=== PATIENT | male | born 1965 | race Two or more races ===

== ENCOUNTER → 2020-08-13 13:04 | Outpatient (BNVA) | payer MEDICARE, MEDICAID, SELFPAY | PROVIDERS: PCP Internal Medicine; Referring Provider Internal Medicine; Visit Provider Dietitian, Registered | DX: Z76.89 Persons encountering health services in other specified circumstances (principal) ==

== ENCOUNTER → 2020-08-14 08:50 | Outpatient (BNVA) | payer MEDICARE, MEDICAID, SELFPAY | PROVIDERS: PCP Internal Medicine; Referring Provider Internal Medicine; Visit Provider Dietitian, Registered | DX: Z76.89 Persons encountering health services in other specified circumstances (principal) ==

== ENCOUNTER 2020-09-24 12:36 | Emergency (ER) | payer MEDICARE, MEDICAID, SELFPAY ==
[2020-09-24 13:03] VITALS: BP 136/76; PULSE 68; RESP 18; TEMP 36.8; O2SAT 97; BMI 34.4
--- NOTE | 2020-09-24 13:23 | XR_ITS ---
EXAMINATION: XR CALCANEUS, LEFT CLINICAL INFORMATION: Evaluate for foreign body. COMPARISON: None TECHNIQUE: Lateral and axial views of the left calcaneus were obtained. FINDINGS: A radiopaque, linear foreign body in subcutaneous tissues at the plantar aspect of the heel measures up to 0.5 cm in length. It is visible on both the AP and lateral projections. Otherwise, soft tissues are unremarkable. No acute fracture or malalignment at the hindfoot. Prominent enthesophytes at the posterior plantar surfaces of the calcaneus. Mild deformity of the talar neck could be sequela of remote trauma. Small osteophyte projects from the dorsal talar head. XR/XR calcaneus LT min 2V IMPRESSION: Small foreign body is present in subcutaneous tissues at the posterior, plantar aspect of the heel.
--- NOTE | 2020-09-24 13:48 | PC.NURSE ---
1st call to emc not in wr
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
[2020-09-24] MEDS: Lidocaine HCl 2 % MPF 5 ML VIAL INFILTRATI (14:22)
--- NOTE | 2020-09-24 14:30 | PC.NURSE ---
SHANNA BROWN AT BEDSIDE FOR FB REMOVAL FROM HEEL, PA AND PT AWARE XRAY RESULTS
--- NOTE | 2020-09-24 14:36 | XR_ITS ---
EXAMINATION: XR CALCANEUS, LEFT CLINICAL INFORMATION: Removal foreign body soft tissues of heel. COMPARISON: Left calcaneus 09/24/2020, 1:44 PM TECHNIQUE: Lateral and axial views of the left calcaneus were obtained. 2:36 PM FINDINGS: Small radiopaque foreign body remains in the soft tissues of the heel. Linear radiopacity measuring about 3 mm in length remains present. On this exam appears to be shifted in position though. The radiopacity is deeper from the skin line, measuring about 1 cm from the skin line, on the lateral view. The radiopacity is more lateral in position since the prior exam today. There is a plantar calcaneal spur. There is a small spur at the insertion of Achilles tendon at the posterior calcaneus. XR/XR calcaneus LT min 2V IMPRESSION: Small radiopaque foreign body in the soft tissue of the heel remains present
== END 2020-09-24 15:30 | disposition home or self-care (01) ==
PROVIDERS: Emergency Provider Emergency Medicine; PCP Internal Medicine
DX: M79.5 Residual foreign body in soft tissue (principal)
CPT/HCPCS: 73650; 90715; 99283

== ENCOUNTER → 2020-09-30 10:14 | Outpatient (BNVA) | payer MEDICARE, MEDICAID, SELFPAY | PROVIDERS: PCP Internal Medicine; Visit Provider Surgery | DX: M79.5 Residual foreign body in soft tissue (principal) | CPT/HCPCS: 99202 ==

== ENCOUNTER 2020-10-06 12:23 | Outpatient (REF) | payer MEDICARE, MEDICAID, SELFPAY ==
[2020-10-06 12:30] VITALS: BP 105/63; PULSE 85; RESP 16; TEMP 36.6; O2SAT 95
[2020-10-06 12:34] VITALS: BMI 34.3
[2020-10-06 13:04] VITALS: BP 117/72; PULSE 81; RESP 16
--- NOTE | 2020-10-06 20:38 | OP_ITS ---
SURGEON: Jose Reeves MD INDICATIONS: The patient is a 55-year-old male, who had stepped on a broken piece on glass, this was about 3 weeks ago. He stated that he had 1 piece of glass that seemed to have been stuck within his heel. He went to the ER, and x-ray showed a small 3 cm piece of radiopaque foreign body in the left heel. He had attempted to remove this in the ER, but without any success. He was therefore referred to me. I explained to him the technique of excision of removal of foreign body under local anesthesia and he was aware of the risks, benefits, and alternatives. PREOPERATIVE DIAGNOSIS: Foreign body, left heel. POSTOPERATIVE DIAGNOSIS: Foreign body, shard of glass, left heel. PROCEDURE PERFORMED: Removal of foreign body, which was a shard of glass, from the left heel under local anesthesia. ESTIMATED BLOOD LOSS: COMPLICATIONS: ANESTHESIA: ASSISTANTS: SPECIMENS: DESCRIPTION OF PROCEDURE: He was brought to the minor procedure room and placed in prone position. The area of the induration on the left heel was prepped and draped. Lidocaine 1% was used generously to infiltrate the entire area. I made a generous cruciate incision on the area of maximal induration using blade #15 and this was carried down to full-thickness skin. I then proceeded to explore the entire area. I could not palpate any foreign body nor clearly visualize at all. We continued to explore the area for several minutes until I was able to finally see a triangular piece of clear glass in the deep subcutaneous layer. It was retrieved and sent as specimen. I irrigated the area of incision. I left the incision open for secondary healing by secondary intention. I wrapped the area with gauze and a Patricio roll. He tolerated the procedure well. There were no complications noted. He was given wound care instructions. He will see me for a wound check in about 2 to 3 weeks. MD LEONILA Penny/VERENICEL / [phone]
== END 2020-10-06 12:24 | disposition home or self-care (01) ==
LOC: HO.MS 12:23
PROVIDERS: PCP Internal Medicine; Visit Provider Surgery
PROC: (CPT 28190; principal; 2020-10-06 13:00)
DX: M79.5 Residual foreign body in soft tissue (principal); Z18.81 Retained glass fragments
CPT/HCPCS: 28190; 88300

== ENCOUNTER 2020-10-22 11:08 | Outpatient (REF) | payer OTHER, SELFPAY | END 2020-10-22 11:09 | disposition home or self-care (01) | LOC: HO.LAB 11:08 | PROVIDERS: Visit Provider Internal Medicine | DX: Z20.822 Contact with and (suspected) exposure to COVID-19 (principal) | CPT/HCPCS: 36415; C9803; U0003 ==

== ENCOUNTER → 2020-10-26 11:34 | Outpatient (BNVA) | payer MEDICARE, MEDICAID, SELFPAY | PROVIDERS: PCP Internal Medicine; Visit Provider Surgery | DX: Z76.89 Persons encountering health services in other specified circumstances (principal) | CPT/HCPCS: 99212 ==

== ENCOUNTER 2020-11-14 02:31 | Emergency (ER) | payer OTHER, SELFPAY ==
[2020-11-14 02:32] VITALS: BP 120/74; PULSE 75; RESP 18; TEMP 36.8; O2SAT 96; BMI 27.6
[2020-11-14 03:56] VITALS: RESP 18
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
== END 2020-11-14 05:26 | disposition home or self-care (01) ==
PROVIDERS: Emergency Provider Student in an Organized Health Care Education/Training Program
DX: U07.1 COVID-19 (principal); T69.9XXA Effect of reduced temperature, unspecified, initial encounter; X31.XXXA Exposure to excessive natural cold, initial encounter; F17.210 Nicotine dependence, cigarettes, uncomplicated
CPT/HCPCS: 99283; 99284

== ENCOUNTER → 2020-11-18 08:17 | Outpatient (BNVA) | payer MEDICARE, MEDICAID, SELFPAY | PROVIDERS: PCP Internal Medicine; Visit Provider Physician Assistant ==

== ENCOUNTER 2020-12-01 11:15 | Emergency (ER) | payer OTHER, SELFPAY ==
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
[2020-12-01 11:42] VITALS: BP 109/67; PULSE 70; RESP 18; TEMP 36.4; O2SAT 98; BMI 33.7
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
== END 2020-12-01 13:21 | disposition home or self-care (01) ==
PROVIDERS: Emergency Provider Emergency Medicine; PCP Internal Medicine
DX: S00.33XA Contusion of nose, initial encounter (principal); Y04.2XXA Assault by strike against or bumped into by another person, initial encounter; Y93.9 Activity, unspecified; Y92.9 Unspecified place or not applicable; Y99.9 Unspecified external cause status; F17.210 Nicotine dependence, cigarettes, uncomplicated
CPT/HCPCS: 70160; 99283

== ENCOUNTER 2022-06-09 08:55 | Emergency (ER) | payer OTHER, SELFPAY ==
--- NOTE | ~2022-06-09 | XR_ITS ---
EXAMINATION: XR FINGER, RIGHT CLINICAL INFORMATION: Patient is able to move fingers for exam COMPARISON: None TECHNIQUE: Three views of the right long finger. FINDINGS: Limited evaluation secondary to projection. Cortical defect along the ulnar aspect of the third middle phalanx proximal metadiaphysis with a 5 mm bone fragment suggesting minimally displaced fracture. Correlation with point tenderness. Negative ulnar variance. Mild degenerative changes of first carpometacarpal joint. Joint spaces and alignment are otherwise maintained. Mild soft tissue swelling around the fracture site. XR/XR finger RT min 2V IMPRESSION: 1. Limited evaluation secondary to projection. 2. Cortical defect along the ulnar aspect of the third middle phalanx proximal metadiaphysis with a 5 mm bone fragment suggesting minimally displaced fracture. Correlation with point tenderness. 3. Mild soft tissue swelling around the fracture site.
[2022-06-09 09:37] VITALS: BP 150/103; PULSE 72; RESP 18; TEMP 37; O2SAT 97; BMI 35.9
--- NOTE | 2022-06-09 11:29 | ED_ITS ---
HPI - Extremity Problem General Chief complaint: Extremity Problem Stated complaint: r hand swelling finger infections pain Time Seen by Provider: 06/09/22 11:07 Source: patient Mode of arrival: ambulatory Limitations: no limitations History of Present Illness HPI Narrative: 57 yo male with history of chronic back pain s/p surgery in the past now mostly wheelchair and walker dependendent, neuropathy, HTN obesity, ROSEMARY, GERD who presents to the ER for evaluation of right middle finger pain, swelling, discharge. He reports cutting his middle finger with a piece of glass last week and he thinks the wound is now infected. He reports if he puts pressure on the area pus comes out. He is unable to fully flex the finger or extend the middle finger because of the pain and swelling. He reports his whole hand now hurts. He denies any retained foreign body. He is not diabetic. Denies any fever or chills. He denies any numbness or tingling. MD Complaint: joint swelling and joint pain Onset (ago): day(s) Pain Consistency: constant Location: right and upper extremity Severity scale (1-10): 9 Quality: stabbing and aching Radiation: proximal Relieving factors: nothing Exacerbating factors: range of motion and palpation Associated symptoms: denies other symptoms Related Data Previous Rx's Medication Instructions Recorded left ankle brace #1 ea 06/29/21 losartan 50 mg tablet 50 mg PO DAILY 90 days #90 tabs 10/26/21 showerhead hand held #1 ea 12/08/21 rollator heavy duty #1 ea 01/10/22 wheelchair #1 ea 01/10/22 walker (Ultra-Light Rollator misc) #1 ea 02/07/22 hydrochlorothiazide 25 mg tablet 25 mg PO QAM #90 tabs 03/10/22 gabapentin 800 mg tablet 800 mg PO TID #90 tabs 03/28/22 cholecalciferol (vitamin D3) 25 25 mcg PO DAILY 90 days #90 tabs 04/29/22 mcg (1,000 unit) tablet cyclobenzaprine 10 mg tablet 10 mg PO TID 30 days #90 tabs 05/24/22 tramadol 50 mg tablet 50 mg PO Q8H PRN pain 30 days #90 05/24/22 tabs cephalexin 500 mg capsule 500 mg PO QID 10 days #40 caps 06/09/22 doxycycline monohydrate 100 mg 100 mg PO BID #20 caps 06/09/22 capsule Allergies Allergy/AdvReac Type Severity Reaction Status Date / Time hydrocodone [HYDROCODONE] Allergy Intermediate ITCHING Verified 09/27/21 12:57 oxycodone Allergy Intermediate rash Verified 09/27/21 12:57 Review of Systems 2 Review of Systems: Constitutional: No Fever, No Chills ENT/Mouth: No sore throat, No Rhinorrhea, No Swallowing Difficulty Cardiovascular: No Chest Pain, No SOB, No Orthopnea, No Edema Respiratory: No Cough, No Sputum, No Wheezing, No dyspnea Gastrointestinal: No Nausea, No Vomiting, No Diarrhea, No abdominal Pain Genitourinary: No Dysuria, No Urinary Frequency, No Hematuria Musculoskeletal: + joint pain, +Myalgias Skin: +Skin Lesions, No rash Neuro: + Weakness, No Numbness, No Dizziness, No Headache Psych: + Anxiety/Panic, No Depression Heme/Lymph: No Bruising, No Lymphadenopathy Endocrine: No Polyuria, No Polydipsia PMFSH Past Medical History Medical History Chronic back pain Class 2 obesity with body mass index (BMI) of 37.0 to 37.9 in adult Foot drop, left foot Foreign body (FB) in soft tissue GERD (gastroesophageal reflux disease) ROSEMARY (obstructive sleep apnea) Smoker Surgical History History of back surgery History of gastrectomy History of spinal surgery Family History Family History Father Stroke CVD (cardiovascular disease) Mother Palpitation Brother Asthma Brother No problems noted. Brother No problems noted. Sister No problems noted. Social History Social History Housing: Apartment Alcohol intake: never Patient Tobacco Use Status: Current everyday Tobacco user Tobacco use type: Cigarette Cigarettes Per Day: 5 e-Cigarette/Vaping Use: Never Used Second Hand Smoke Exposure: No Advance Directives: No Advance Directives Information Provided: No service: No Current occupational status: disabled Physical Exam Vital Signs: Vital Signs: Last Vital Signs Temp 98.5 F 06/09/22 12:39 Pulse 57 06/09/22 12:39 Resp 16 06/09/22 12:41 BP 153/98 H 06/09/22 12:39 Pulse Ox 99 06/09/22 12:39 O2 Del Method 06/09/22 12:39 BMI result Body Mass Index 35.9 Appearance: Alert. Oriented X3. No acute distress. Eyes: Pupils equal, round and reactive to light. ENT: Pharynx normal. Neck: Normal inspection. Neck supple. CVS: Normal heart rate and rhythm. Pulses normal. Respiratory: No respiratory distress. Breath sounds normal. Abdomen: Soft and nontender. +BS x4 Skin: Skin warm and dry. Normal skin color. Normal skin turgor. No rashes. Extremities: right hand held with digits 2-4 in passive flexion, generalized swelling of the 3rd digit with area of fluctuance and purulence drainage between the DIP and PIP on the lateral aspect of the finger. Tenderness when palpating the palm. Neuro: Oriented X 3. No sensory deficit. Unable to make a full hand grasp with the right hand due to pain and swelling. Course Course Course Narrative: 57-year-old male presents to the ER for evaluation of right middle finger pain, swelling, drainage after he cut his finger with glass last week. On arrival to the ER patient's exam is concerning for possible tenosynovitis, it is held in passive flexion with pain upon palpation of the palm. There is an area that is open and draining purulent material. He is exquisitely tender on exam. Will check basic lab workup including WBC, inflammatory markers, lactic and blood cultures. Will give a dose of IV Rocephin now. Will reach out to Orthopedics/Hand. Reevaluation(s) Reevaluation #1: WBC normal. His inflammatory markers are mildly elevated. His x-ray is limited but showing a possible fracture. Case was discussed with Eugenie Case from Orthopedics. She is recommending bedside I&D. Reevaluation #2: Patient tolerated nerve block, incision and drainage with small amount of purulent material expressed. Patient was in significant pain. Wound was irrigated with copious amounts of normal saline. He was placed in a dry sterile dressing and gauze wrap. Patient will follow-up with orthopedics as an outpatient. He is stable for discharge home with pain control and antibiotics. He was instructed to come back to the ER if he had any worsening signs or symptoms. Orthopedics aware he is being discharged home and plan for close outpatient follow-up. MDM - Extremity (Nontraumatic) Lab Data Result diagrams: 06/09/22 12:23 06/09/22 12:23 Labs: Lab Results 06/09/22 06/09/22 06/09/22 Range/Units 12:23 12:23 12:23 WBC 10.8 (4.8-10.8) X10*3/uL RBC 4.41 L (4.60-5.80) X10*6/uL Hgb 14.4 (14.0-18.0) g/dl Hct 42.8 (42.0-52.0) % MCV 97.1 (80.0-98.0) fL MCH 32.7 (27.0-33.0) pg MCHC 33.6 (31.0-36.0) g/dl RDW 13.5 (11.0-16.0) % Plt Count 206 (160-400) X10*3/uL MPV 9.0 L (9.4-12.4) fL Immature Gran % (Auto) 0.4 (0.0-0.4) % Neut % (Auto) 79.7 H (45-73) % Lymph % (Auto) 13.4 L (20-40) % [place] % (Auto) 5.4 (2-11) % Eos % (Auto) 0.7 (0-4) % Baso % (Auto) 0.4 (0-2) % Lymph # (Auto) 1.5 (1.2-4.9) X10*3/uL [place] # (Auto) 0.6 (0.1-1.2) X10*3/uL Eos # (Auto) 0.1 (0.0-0.4) X10*3/uL Baso # (Auto) 0.0 (0.0-0.2) X10*3/uL Abs Immat Gran (auto) 0.04 H (0.00-0.03) X10*3/uL Absolute Neuts (auto) 8.6 H (2.0-8.3) x10*3/uL Absolute Nucleated RBC 0.000 (0.0-0.012) X10*3/uL Nucleated RBC % (auto) 0.0 (0.0-0.2) /100WBC ESR 38 H (0-15) MM/HR Sodium 139 (135-145) mmol/L Potassium 4.2 (3.3-5.1) mmol/L Chloride 105 (96-108) mmol/L Carbon Dioxide 26 (22-29) mmol/L Anion Gap 12 (12-20) BUN 12 (9-16) mg/dL Creatinine 0.96 (0.5-1.4) mg/dL Estim Creat Clear Calc 105.7 Estimated GFR > 60 Random Glucose 96 (60-115) mg/dL Lactic Acid (0.5-2.0) mmol/L Calcium 9.0 (8.4-10.2) mg/dL C-Reactive Protein 3.50 H (< or = 0.50) mg/dL COVID-19 ([facility]) (Negative) COVID-19 Clin Com 06/09/22 06/09/22 Range/Units 12:23 12:32 WBC (4.8-10.8) X10*3/uL RBC (4.60-5.80) X10*6/uL Hgb (14.0-18.0) g/dl Hct (42.0-52.0) % MCV (80.0-98.0) fL MCH (27.0-33.0) pg MCHC (31.0-36.0) g/dl RDW (11.0-16.0) % Plt Count (160-400) X10*3/uL MPV (9.4-12.4) fL Immature Gran % (Auto) (0.0-0.4) % Neut % (Auto) (45-73) % Lymph % (Auto) (20-40) % [place] % (Auto) (2-11) % Eos % (Auto) (0-4) % Baso % (Auto) (0-2) % Lymph # (Auto) (1.2-4.9) X10*3/uL [place] # (Auto) (0.1-1.2) X10*3/uL Eos # (Auto) (0.0-0.4) X10*3/uL Baso # (Auto) (0.0-0.2) X10*3/uL Abs Immat Gran (auto) (0.00-0.03) X10*3/uL Absolute Neuts (auto) (2.0-8.3) x10*3/uL Absolute Nucleated RBC (0.0-0.012) X10*3/uL Nucleated RBC % (auto) (0.0-0.2) /100WBC ESR (0-15) MM/HR Sodium (135-145) mmol/L Potassium (3.3-5.1) mmol/L Chloride (96-108) mmol/L Carbon Dioxide (22-29) mmol/L Anion Gap (12-20) BUN (9-16) mg/dL Creatinine (0.5-1.4) mg/dL Estim Creat Clear Calc Estimated GFR Random Glucose (60-115) mg/dL Lactic Acid 0.9 (0.5-2.0) mmol/L Calcium (8.4-10.2) mg/dL C-Reactive Protein (< or = 0.50) mg/dL COVID-19 ([facility]) Negative (Negative) COVID-19 Clin Com See Note Procedures Abscess I/D Site: hand Side (if applicable): right Local Anesthetic: bupivacaine 0.5% Amount of anesthesia used (mL): 6 Technique: incised with blade Irrigation: Yes Packing used?: none Complications: pain Nerve Block Nerve Block 1: Time out performed: Yes Local Anesthetic: bupivacaine 0.5% Amount of anesthesia used (mL): 6 Side: right Nerve Blocks: digital Procedure Successful: Yes Patient Tolerated Procedure: well Complications: pain with procedure Critical Care Time Critical Care Time Critical Care Time: No Discharge Plan Discharge Clinical Impression: Abscess of right middle finger Patient Disposition: Home, Self-Care Instructions: Abscess Incision and Drainage (DC) Additional Instructions: Take the prescribed antibiotics as directed, complete the entire course. Continue taking your previously prescribed tramadol as needed for pain. Recommend around the clock Tylenol 975 mg every 6 hours as well as 600 mg of ibuprofen every 6-8 hours. Elevate your hand and use warm compresses to the area to help increased blood flow and fight the infection. Recommend following up with Orthopedics, Hand specialist tomorrow. Call their office in the morning. Name and number below. If you develop new or worsening symptoms call 911 or come back to the ER for further evaluation. Prescriptions: New cephalexin 500 mg capsule 500 mg PO QID 10 Days Qty: 40 0RF doxycycline monohydrate 100 mg capsule 100 mg PO BID Qty: 20 0RF No Action (DME) left ankle brace large See Rx Instructions .Route .MEDSUPPLY Qty: 1 0RF Rx Instructions: As directed losartan 50 mg tablet 50 mg PO DAILY 90 Days Qty: 90 3RF (DME) showerhead hand held See Rx Instructions .Route .MEDSUPPLY Qty: 1 0RF Rx Instructions: As directed (DME) rollator heavy duty heavy duty See Rx Instructions .Route .MEDSUPPLY Qty: 1 0RF Rx Instructions: As directed (DME) wheelchair See Rx Instructions .Route .MEDSUPPLY Qty: 1 0RF Rx Instructions: Patient needs to rest his left foot (DME) Ultra-Light Rollator Misc See Rx Instructions .ROUTE .MEDSUPPLY Qty: 1 0RF Rx Instructions: As directed hydrochlorothiazide 25 mg tablet 25 mg PO QAM Qty: 90 1RF gabapentin 800 mg tablet 800 mg PO TID Qty: 90 3RF cholecalciferol (vitamin D3) 25 mcg (1,000 unit) tablet 25 mcg PO DAILY 90 Days Qty: 90 3RF cyclobenzaprine 10 mg tablet 10 mg PO TID 30 Days Qty: 90 3RF tramadol 50 mg tablet 50 mg PO Q8H PRN (Reason: pain) 30 Days Qty: 90 0RF Referrals: Susanna Beltran MD [Physician] - (Right middle finger abscess, concern for tenosynovitis) Interventions: ED Discharge Assessment Last Done: 06/09/22 16:08 Discharge Date/Time: 06/09/22 16:12
[2022-06-09 12:29] LABS: MANUAL DIFF FLAG NO
[2022-06-09] MEDS: 0.9 % Sodium Chloride 1,000 ML 999 ML IVCONT (12:32)
[2022-06-09 12:37] LABS: Basophils Percent Auto 0.4 % (0-2); Eosinophils Absolute Auto 0.1 X10*3/uL (0.0-0.4); Eosinophils Percent Auto 0.7 % (0-4); Hematocrit 42.8 % (42.0-52.0); Hemoglobin 14.4 g/dl (14.0-18.0); Imm Gran Abs Auto 0.04 X10*3/uL (0.00-0.03); Imm Gran Pct Auto 0.4 % (0.0-0.4); Lymphocytes Absolute Auto 1.5 X10*3/uL (1.2-4.9); Lymphocytes Percent Auto 13.4 % (20-40); Mean Corpuscular HGB Conc 33.6 g/dl (31.0-36.0); Mean Corpuscular Hemoglobin 32.7 pg (27.0-33.0); Mean Corpuscular Volume 97.1 fL (80.0-98.0); Monocytes Absolute Auto 0.6 X10*3/uL (0.1-1.2); Monocytes Percent Auto 5.4 % (2-11); Neutrophils Absolute Auto 8.6 x10*3/uL (2.0-8.3); Neutrophils Percent Auto 79.7 % (45-73); Platelet Count 206 X10*3/uL (160-400); Red Blood Count 4.41 X10*6/uL (4.60-5.80); Red Cell Distribution Width 13.5 % (11.0-16.0); White Blood Count 10.8 X10*3/uL (4.8-10.8)
[2022-06-09 12:39] VITALS: BP 153/98; PULSE 57; RESP 16; TEMP 36.9; O2SAT 99
[2022-06-09 12:41] VITALS: RESP 16
[2022-06-09] MEDS: Morphine Sulfate 4 MG/ML CARTRIDGE IVPUSH (12:41)
[2022-06-09 12:42] LABS: Lactic Acid 0.9 mmol/L (0.5-2.0)
[2022-06-09] MEDS: cefTRIAXone sodium 1 GM in 0.9 % Sodium Chloride 50 ML IV (12:42)
[2022-06-09 12:45] LABS: Anion Gap 12 (12-20); Blood Urea Nitrogen 12 mg/dL (9-16); Carbon Dioxide 26 mmol/L (22-29); Chloride 105 mmol/L (96-108); Creatinine Clr Calc Pharmacy 105.7; Estimated Glomerular Filt Rate > 60; Glucose Random 96 mg/dL (60-115); Potassium 4.2 mmol/L (3.3-5.1); Sodium 139 mmol/L (135-145)
[2022-06-09 13:07] LABS: COVID-19 Test Negative (Negative)
[2022-06-09 13:20] LABS: Erythrocyte Sedimentation Rate 38 MM/HR (0-15)
[2022-06-09] MEDS: oxyCODONE HCl Immed Release 5 MG TABLET PO (15:33)
== END 2022-06-09 16:12 | disposition home or self-care (01) ==
PROVIDERS: Physician Assistant; Emergency Provider Emergency Medicine Emergency Medical Services; PCP Internal Medicine
DX: L02.511 Cutaneous abscess of right hand (principal); M79.644 Pain in right finger(s); Z20.822 Contact with and (suspected) exposure to COVID-19; F17.210 Nicotine dependence, cigarettes, uncomplicated; E66.9 Obesity, unspecified; Z68.35 Body mass index [BMI] 35.0-35.9, adult
CPT/HCPCS: 26010; 73140; 80048; 83605; 85025; 85652; 86140; 87040; 87635; 96361; 96365; 96375; 99283; 99284; J0696; J2270

== ENCOUNTER 2022-06-22 08:09 | Outpatient (REF) | payer OTHER, SELFPAY ==
--- NOTE | ~2022-06-22 | XR_ITS ---
EXAMINATION: XR HAND, RIGHT CLINICAL INFORMATION: Right hand pain. COMPARISON: Right finger radiographs dated 06/09/2022. TECHNIQUE: PA, lateral, and oblique views of the right hand. FINDINGS: Third digit soft tissue swelling without evidence of acute fracture or dislocation. Third distal interphalangeal joint space narrowing with tiny marginal osteophytes. No osseous erosion. No abnormal soft tissue calcification. Marginal osteophytes at the triscaphe and 1st carpal metacarpal joints. XR/XR hand RT min 3V IMPRESSION: 1. Third digit soft tissue swelling without acute fracture or dislocation. 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 2. 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
== END 2022-06-22 08:10 | disposition home or self-care (01) ==
LOC: HO.HOSX 08:09
PROVIDERS: Visit Provider Orthopaedic Surgery
DX: M79.641 Pain in right hand (principal); L03.011 Cellulitis of right finger
CPT/HCPCS: 73130; 99202

== ENCOUNTER 2022-06-25 09:33 | Emergency (ER) | payer OTHER, SELFPAY ==
[2022-06-25 09:39] VITALS: BP 180/100; PULSE 78; O2SAT 99
[2022-06-25 09:40] VITALS: PULSE 76; RESP 18; TEMP 36.6; O2SAT 98; BMI 34.4
[2022-06-25 11:56] LABS: MANUAL DIFF FLAG NO
[2022-06-25 11:57] LABS: Basophils Absolute Auto 0.1 X10*3/uL (0.0-0.2); Basophils Percent Auto 0.5 % (0-2); Eosinophils Absolute Auto 0.1 X10*3/uL (0.0-0.4); Hematocrit 45.3 % (42.0-52.0); Imm Gran Abs Auto 0.04 X10*3/uL (0.00-0.03); Imm Gran Pct Auto 0.4 % (0.0-0.4); Lymphocytes Absolute Auto 1.6 X10*3/uL (1.2-4.9); Lymphocytes Percent Auto 14.2 % (20-40); Mean Corpuscular HGB Conc 33.1 g/dl (31.0-36.0); Mean Corpuscular Volume 99.6 fL (80.0-98.0); Monocytes Absolute Auto 0.5 X10*3/uL (0.1-1.2); Monocytes Percent Auto 4.8 % (2-11); Neutrophils Absolute Auto 8.8 x10*3/uL (2.0-8.3); Neutrophils Percent Auto 79.1 % (45-73); Platelet Count 269 X10*3/uL (160-400); Red Blood Count 4.55 X10*6/uL (4.60-5.80); Red Cell Distribution Width 13.8 % (11.0-16.0); White Blood Count 11.1 X10*3/uL (4.8-10.8)
[2022-06-25 12:20] LABS: Alanine Aminotransferase 21 U/L (0-40); Albumin Level 3.9 g/dL (3.5-5.0); Alkaline Phosphatase 80 U/L (39-117); Anion Gap 15 (12-20); Aspartate Amino Transferase 25 U/L (5-37); Bilirubin Direct 0.3 mg/dL (0.0-0.5); Bilirubin Total 0.6 mg/dL (0.0-1.0); Blood Urea Nitrogen 12 mg/dL (9-16); Calcium 9.2 mg/dL (8.4-10.2); Carbon Dioxide 26 mmol/L (22-29); Chloride 102 mmol/L (96-108); Creatinine Clr Calc Pharmacy 92.9; Estimated Glomerular Filt Rate > 60; Glucose Random 96 mg/dL (60-115); Lipase 21 U/L (8-78); Potassium 4.4 mmol/L (3.3-5.1); Sodium 139 mmol/L (135-145); Total Protein 8.1 g/dL (6.5-8.0)
--- NOTE | 2022-06-25 15:59 | ED.ABDPAIN ---
HPI - Abdominal Pain General Chief Complaint: Abdominal Pain Stated Complaint: LOW ABD/RECTAL PAIN PER EMS Time Seen by Provider: 06/25/22 15:19 Source: patient and EMS Mode of arrival: EMS Limitations: no limitations History of Present Illness HPI narrative: 57 yo male Related Data Previous Rx's Medication Instructions Recorded left ankle brace #1 ea 06/29/21 losartan 50 mg tablet 50 mg PO DAILY 90 days #90 tabs 10/26/21 showerhead hand held #1 ea 12/08/21 rollator heavy duty #1 ea 01/10/22 wheelchair #1 ea 01/10/22 walker (Ultra-Light Rollator misc) #1 ea 02/07/22 hydrochlorothiazide 25 mg tablet 25 mg PO QAM #90 tabs 03/10/22 gabapentin 800 mg tablet 800 mg PO TID #90 tabs 03/28/22 cholecalciferol (vitamin D3) 25 25 mcg PO DAILY 90 days #90 tabs 04/29/22 mcg (1,000 unit) tablet cyclobenzaprine 10 mg tablet 10 mg PO TID 30 days #90 tabs 05/24/22 tramadol 50 mg tablet 50 mg PO Q8H PRN pain 30 days #90 05/24/22 tabs cephalexin 500 mg capsule 500 mg PO QID 10 days #40 caps 06/09/22 doxycycline monohydrate 100 mg 100 mg PO BID #20 caps 06/09/22 capsule Allergies Allergy/AdvReac Type Severity Reaction Status Date / Time hydrocodone [HYDROCODONE] Allergy Intermediate ITCHING Verified 06/22/22 10:16 oxycodone Allergy Intermediate rash Verified 06/22/22 10:16 PMFSH Past Medical History Medical History Chronic back pain Class 2 obesity with body mass index (BMI) of 37.0 to 37.9 in adult Foot drop, left foot Foreign body (FB) in soft tissue GERD (gastroesophageal reflux disease) ROSEMARY (obstructive sleep apnea) Smoker Surgical History History of back surgery History of gastrectomy History of spinal surgery Family History Family History Father Stroke CVD (cardiovascular disease) Mother Palpitation Brother Asthma Brother No problems noted. Brother No problems noted. Sister No problems noted. Social History Social History (Updated 06/22/22 @ 10:16 by CHARLY Mcneill) Housing: Apartment Alcohol intake: never Patient Tobacco Use Status: Current everyday Tobacco user Tobacco use type: Cigarette Cigarettes Per Day: 5 e-Cigarette/Vaping Use: Never Used Second Hand Smoke Exposure: No Advance Directives: No Advance Directives Information Provided: No service: No Current occupational status: disabled Current occupation: rt hand Physical Exam ED Vital Signs: Vital Signs - 24 hr 06/25/22 09:40 Temperature 98 F Pulse Rate 76 Respiratory Rate 18 Pulse Oximetry 98 Oxygen Delivery Method Room Air BMI result Body Mass Index 34.4 MDM - Abdominal Pain Lab Data Result diagrams: 06/25/22 11:37 06/25/22 11:37 Labs: Lab Results 06/25/22 06/25/22 Range/Units 11:37 11:37 WBC 11.1 H (4.8-10.8) X10*3/uL RBC 4.55 L (4.60-5.80) X10*6/uL Hgb 15.0 (14.0-18.0) g/dl Hct 45.3 (42.0-52.0) % MCV 99.6 H (80.0-98.0) fL MCH 33.0 (27.0-33.0) pg MCHC 33.1 (31.0-36.0) g/dl RDW 13.8 (11.0-16.0) % Plt Count 269 D (160-400) X10*3/uL MPV 9.0 L (9.4-12.4) fL Immature Gran % (Auto) 0.4 (0.0-0.4) % Neut % (Auto) 79.1 H (45-73) % Lymph % (Auto) 14.2 L (20-40) % [place] % (Auto) 4.8 (2-11) % Eos % (Auto) 1.0 (0-4) % Baso % (Auto) 0.5 (0-2) % Lymph # (Auto) 1.6 (1.2-4.9) X10*3/uL [place] # (Auto) 0.5 (0.1-1.2) X10*3/uL Eos # (Auto) 0.1 (0.0-0.4) X10*3/uL Baso # (Auto) 0.1 (0.0-0.2) X10*3/uL Abs Immat Gran (auto) 0.04 H (0.00-0.03) X10*3/uL Absolute Neuts (auto) 8.8 H (2.0-8.3) x10*3/uL Absolute Nucleated RBC 0.000 (0.0-0.012) X10*3/uL Nucleated RBC % (auto) 0.0 (0.0-0.2) /100WBC Sodium 139 (135-145) mmol/L Potassium 4.4 (3.3-5.1) mmol/L Chloride 102 (96-108) mmol/L Carbon Dioxide 26 (22-29) mmol/L Anion Gap 15 (12-20) BUN 12 (9-16) mg/dL Creatinine 1.07 (0.5-1.4) mg/dL Estim Creat Clear Calc 92.9 Estimated GFR > 60 Random Glucose 96 (60-115) mg/dL Calcium 9.2 (8.4-10.2) mg/dL Total Bilirubin 0.6 (0.0-1.0) mg/dL Direct Bilirubin 0.3 (0.0-0.5) mg/dL AST 25 (5-37) U/L ALT 21 (0-40) U/L Alkaline Phosphatase 80 (39-117) U/L Total Protein 8.1 H (6.5-8.0) g/dL Albumin 3.9 (3.5-5.0) g/dL Lipase 21 (8-78) U/L Discharge Plan Discharge Prescriptions: No Action (DME) left ankle brace large See Rx Instructions .Route .MEDSUPPLY Qty: 1 0RF Rx Instructions: As directed losartan 50 mg tablet 50 mg PO DAILY 90 Days Qty: 90 3RF (DME) showerhead hand held See Rx Instructions .Route .MEDSUPPLY Qty: 1 0RF Rx Instructions: As directed (DME) rollator heavy duty heavy duty See Rx Instructions .Route .MEDSUPPLY Qty: 1 0RF Rx Instructions: As directed (DME) wheelchair See Rx Instructions .Route .MEDSUPPLY Qty: 1 0RF Rx Instructions: Patient needs to rest his left foot (DME) Ultra-Light Rollator Misc See Rx Instructions .ROUTE .MEDSUPPLY Qty: 1 0RF Rx Instructions: As directed hydrochlorothiazide 25 mg tablet 25 mg PO QAM Qty: 90 1RF gabapentin 800 mg tablet 800 mg PO TID Qty: 90 3RF cholecalciferol (vitamin D3) 25 mcg (1,000 unit) tablet 25 mcg PO DAILY 90 Days Qty: 90 3RF cyclobenzaprine 10 mg tablet 10 mg PO TID 30 Days Qty: 90 3RF tramadol 50 mg tablet 50 mg PO Q8H PRN (Reason: pain) 30 Days Qty: 90 0RF cephalexin 500 mg capsule 500 mg PO QID 10 Days Qty: 40 0RF doxycycline monohydrate 100 mg capsule 100 mg PO BID Qty: 20 0RF
--- NOTE | 2022-06-25 16:37 | ED.ABDPAIN ---
HPI - Abdominal Pain General Chief Complaint: Abdominal Pain Stated Complaint: LOW ABD/RECTAL PAIN PER EMS Time Seen by Provider: 06/25/22 15:19 Source: patient Mode of arrival: EMS History of Present Illness HPI narrative: Patient very unkept condition with chronic back pain, ROSEMARY, obesity, drop foot comes here as he feel hemorrhoids in his rectum no bleeding no significant abdominal pain, no vomiting, patient had similar history in the past patient is status post gastric bypass surgery 2 years ago and been constipated since Related Data Previous Rx's Medication Instructions Recorded left ankle brace #1 ea 06/29/21 losartan 50 mg tablet 50 mg PO DAILY 90 days #90 tabs 10/26/21 showerhead hand held #1 ea 12/08/21 rollator heavy duty #1 ea 01/10/22 wheelchair #1 ea 01/10/22 walker (Ultra-Light Rollator misc) #1 ea 02/07/22 hydrochlorothiazide 25 mg tablet 25 mg PO QAM #90 tabs 03/10/22 gabapentin 800 mg tablet 800 mg PO TID #90 tabs 03/28/22 cholecalciferol (vitamin D3) 25 25 mcg PO DAILY 90 days #90 tabs 04/29/22 mcg (1,000 unit) tablet cyclobenzaprine 10 mg tablet 10 mg PO TID 30 days #90 tabs 05/24/22 tramadol 50 mg tablet 50 mg PO Q8H PRN pain 30 days #90 05/24/22 tabs cephalexin 500 mg capsule 500 mg PO QID 10 days #40 caps 06/09/22 doxycycline monohydrate 100 mg 100 mg PO BID #20 caps 06/09/22 capsule bisacodyl 5 mg tablet,delayed 10 mg PO BEDTIME PRN constipation 06/25/22 release (Dulcolax (bisacodyl)) #60 tabs polyethylene glycol 3350 17 17 g PO DAILY #510 grams 06/25/22 gram/dose oral powder (Miralax) Allergies Allergy/AdvReac Type Severity Reaction Status Date / Time hydrocodone [HYDROCODONE] Allergy Intermediate ITCHING Verified 06/22/22 10:16 oxycodone Allergy Intermediate rash Verified 06/22/22 10:16 Review of Systems Review of Systems Yes all other systems are reviewed and are negative PMFSH Past Medical History Medical History Chronic back pain Class 2 obesity with body mass index (BMI) of 37.0 to 37.9 in adult Foot drop, left foot Foreign body (FB) in soft tissue GERD (gastroesophageal reflux disease) ROSEMARY (obstructive sleep apnea) Smoker Surgical History History of back surgery History of gastrectomy History of spinal surgery Family History Family History Father Stroke CVD (cardiovascular disease) Mother Palpitation Brother Asthma Brother No problems noted. Brother No problems noted. Sister No problems noted. Social History Social History Housing: Apartment Alcohol intake: never Patient Tobacco Use Status: Current everyday Tobacco user Tobacco use type: Cigarette Cigarettes Per Day: 5 e-Cigarette/Vaping Use: Never Used Second Hand Smoke Exposure: No Advance Directives: No Advance Directives Information Provided: No service: No Current occupational status: disabled Current occupation: rt hand Physical Exam ED Vital Signs: Vital Signs - 24 hr 06/25/22 09:40 Temperature 98 F Pulse Rate 76 Respiratory Rate 18 Pulse Oximetry 98 Oxygen Delivery Method Room Air BMI result Body Mass Index 34.4 Appearance: Alert. Oriented X3. No acute distress. Very unkept condition Eyes: PERRLA, No Nystagmus ENT: Pharynx normal. Oral Mucosa moist Neck: Normal inspection. Neck supple. CVS: Normal heart rate and rhythm. Pulses normal. Respiratory: No respiratory distress. Equal air entry bilateral, no wheezing/rales/rhonchi Abdomen: Soft and nontender. Bowel sounds are present, no mass palpable, no CVA tenderness rectal; loose stool around the rectum hard stool felt in the side the rectum which was manually disimpacted no hemorrhoids palpated Skin: Skin warm and dry. Normal skin color. Normal skin turgor. Extremities: No lower extremity edema. No calf tenderness Neuro: Oriented X 3. No motor deficit. MDM - Abdominal Pain MDM Narrative Medical decision making narrative: After manual disimpaction patient had 3 big bowel movements feeling much better now will discharge patient home Lab Data Attestation: I reviewed the patient's lab results. Result diagrams: 06/25/22 11:37 06/25/22 11:37 Labs: Lab Results 06/25/22 06/25/22 Range/Units 11:37 11:37 WBC 11.1 H (4.8-10.8) X10*3/uL RBC 4.55 L (4.60-5.80) X10*6/uL Hgb 15.0 (14.0-18.0) g/dl Hct 45.3 (42.0-52.0) % MCV 99.6 H (80.0-98.0) fL MCH 33.0 (27.0-33.0) pg MCHC 33.1 (31.0-36.0) g/dl RDW 13.8 (11.0-16.0) % Plt Count 269 D (160-400) X10*3/uL MPV 9.0 L (9.4-12.4) fL Immature Gran % (Auto) 0.4 (0.0-0.4) % Neut % (Auto) 79.1 H (45-73) % Lymph % (Auto) 14.2 L (20-40) % [place] % (Auto) 4.8 (2-11) % Eos % (Auto) 1.0 (0-4) % Baso % (Auto) 0.5 (0-2) % Lymph # (Auto) 1.6 (1.2-4.9) X10*3/uL [place] # (Auto) 0.5 (0.1-1.2) X10*3/uL Eos # (Auto) 0.1 (0.0-0.4) X10*3/uL Baso # (Auto) 0.1 (0.0-0.2) X10*3/uL Abs Immat Gran (auto) 0.04 H (0.00-0.03) X10*3/uL Absolute Neuts (auto) 8.8 H (2.0-8.3) x10*3/uL Absolute Nucleated RBC 0.000 (0.0-0.012) X10*3/uL Nucleated RBC % (auto) 0.0 (0.0-0.2) /100WBC Sodium 139 (135-145) mmol/L Potassium 4.4 (3.3-5.1) mmol/L Chloride 102 (96-108) mmol/L Carbon Dioxide 26 (22-29) mmol/L Anion Gap 15 (12-20) BUN 12 (9-16) mg/dL Creatinine 1.07 (0.5-1.4) mg/dL Estim Creat Clear Calc 92.9 Estimated GFR > 60 Random Glucose 96 (60-115) mg/dL Calcium 9.2 (8.4-10.2) mg/dL Total Bilirubin 0.6 (0.0-1.0) mg/dL Direct Bilirubin 0.3 (0.0-0.5) mg/dL AST 25 (5-37) U/L ALT 21 (0-40) U/L Alkaline Phosphatase 80 (39-117) U/L Total Protein 8.1 H (6.5-8.0) g/dL Albumin 3.9 (3.5-5.0) g/dL Lipase 21 (8-78) U/L Discharge Plan Discharge Clinical Impression: Constipation Patient Disposition: Home, Self-Care Instructions: Constipation (ED) Additional Instructions: Drink plenty of fluids Take stool softeners as prescribed and follow-up with PCP Prescriptions: New polyethylene glycol 3350 [Miralax] 17 gram/dose powder 17 g PO DAILY Qty: 510 0RF bisacodyl [Dulcolax (bisacodyl)] 5 mg tablet,delayed release (DR/EC) 10 mg PO BEDTIME PRN (Reason: constipation) Qty: 60 0RF No Action (DME) left ankle brace large See Rx Instructions .Route .MEDSUPPLY Qty: 1 0RF Rx Instructions: As directed losartan 50 mg tablet 50 mg PO DAILY 90 Days Qty: 90 3RF (DME) showerhead hand held See Rx Instructions .Route .MEDSUPPLY Qty: 1 0RF Rx Instructions: As directed (DME) rollator heavy duty heavy duty See Rx Instructions .Route .MEDSUPPLY Qty: 1 0RF Rx Instructions: As directed (DME) wheelchair See Rx Instructions .Route .MEDSUPPLY Qty: 1 0RF Rx Instructions: Patient needs to rest his left foot (DME) Ultra-Light Rollator Misc See Rx Instructions .ROUTE .MEDSUPPLY Qty: 1 0RF Rx Instructions: As directed hydrochlorothiazide 25 mg tablet 25 mg PO QAM Qty: 90 1RF gabapentin 800 mg tablet 800 mg PO TID Qty: 90 3RF cholecalciferol (vitamin D3) 25 mcg (1,000 unit) tablet 25 mcg PO DAILY 90 Days Qty: 90 3RF cyclobenzaprine 10 mg tablet 10 mg PO TID 30 Days Qty: 90 3RF tramadol 50 mg tablet 50 mg PO Q8H PRN (Reason: pain) 30 Days Qty: 90 0RF cephalexin 500 mg capsule 500 mg PO QID 10 Days Qty: 40 0RF doxycycline monohydrate 100 mg capsule 100 mg PO BID Qty: 20 0RF
--- NOTE | 2022-06-25 17:53 | PC.NURSE ---
Dr España to bedside, rectal exam completed. No hemorrhoids noted. Stool to rectum, encouraged to have bowel movement. Pt attempting at this time (second attempt). Brother at bedside. Pt restless. Reassured with minimal effect.
[2022-06-25] MEDS: Milk of Magnesia 30 ML ORAL.SUSP PO (18:05)
[2022-06-25] MEDS: bisacodyL 5 MG TABLET.DR 10 MG PO (18:05)
[2022-06-25 18:07] VITALS: BP 144/106; PULSE 101; RESP 20; O2SAT 99
[2022-06-25 20:18] VITALS: BP 138/78; O2SAT 96
--- NOTE | 2022-06-25 20:21 | PC.NURSE ---
Pt. was able to defecate and reports relief from that effort. Pt. sleeping in room, but arousable when spoken to.
== END 2022-06-25 20:34 | disposition home or self-care (01) ==
PROVIDERS: Emergency Medicine; Emergency Provider Internal Medicine; PCP Internal Medicine
DX: K59.00 Constipation, unspecified (principal); F17.210 Nicotine dependence, cigarettes, uncomplicated; Z79.899 Other long term (current) drug therapy
CPT/HCPCS: 36415; 80048; 80076; 83690; 85025; 99283

== ENCOUNTER 2022-10-22 03:55 | Inpatient (IN) | payer OTHER, SELFPAY ==
[2022-10-22] VITALS (17 sets, daily range): BP systolic 100–161; BP diastolic 55–84; PULSE 72–92; RESP 12–20; TEMP 36–36.3; O2SAT 94–100; BMI 40.1; BMI 38.8
--- NOTE | ~2022-10-22 | CT_ITS ---
EXAMINATION: CT HEAD WITHOUT CONTRAST CLINICAL INFORMATION: Change in mental status. Rule out stroke, bleed, mass COMPARISON: Head CT May 23, 2010 TECHNIQUE: Contiguous axial imaging was performed from the skull base to vertex without intravenous administration of contrast. This CT examination was performed using dose optimization techniques as appropriate, variously including the following: *Automated exposure control *Adjustment of mA and/or kV according to patient size (this includes techniques or standardized protocols for targeted exams where dose is matched to indication/reason for exam; i.e. extremities or head) *Use of iterative reconstruction technique DLP: 1651 mGy-cm FINDINGS: There is no evidence of acute intracranial hemorrhage or territorial infarction. No abnormal mass effect or midline shift is appreciated. Mast-white differentiation is well preserved. No extra-axial fluid collections. The ventricular system and cortical sulci are normal in size. The osseous structures and soft tissues are normal. The visualized paranasal sinuses and mastoid air cells are well aerated. CT/CT head/brain wo IV con IMPRESSION: No CT evidence for acute intracranial pathology.
--- NOTE | ~2022-10-22 | XR_ITS ---
EXAMINATION: XR CHEST CLINICAL INFORMATION: Altered mental status. COMPARISON: Chest x-ray 08/09/2019 TECHNIQUE: Frontal view of the chest was obtained. FINDINGS: The lungs are hypoexpanded with patchy left parahilar opacity question infiltrate. There is likely subsegmental bibasilar atelectasis. Heart size enlarged. Pulmonary vascularity is prominent. XR/XR chest 1V IMPRESSION: Hypoexpanded lungs. Suspect left parahilar infiltrate/atelectasis.
--- NOTE | ~2022-10-22 | US_ITS ---
EXAMINATION: US VENOUS ULTRASOUND WITH DOPPLER LOWER EXTREMITY, LEFT CLINICAL INFORMATION: Left lower extremity pain. COMPARISON: None TECHNIQUE: Ultrasound of the deep veins is performed from the left hip to the calf with compression sonography and color and pulse Doppler assessment. Spectral analysis with color-flow imaging is performed. FINDINGS: The common femoral vein is compressible and exhibits a normal phasic waveform; this suggests that the iliac veins are widely patent above. Within the proximal thigh, the visualized profunda femoris vein is normal. The examined greater saphenous vein and saphenofemoral junction are normal. Superficial femoral vein is patent in the proximal, mid and distal thigh. There is a vein seen in parallel to the popliteal vein that does not compress and has echogenic material within, consistent with venous thrombosis. No evidence of thrombosis within the posterior tibial or peroneal veins. No evidence of Ontiveros's cyst. Mild edema is seen within subcutaneous tissues of the leg. US/US venous duplex LE LT IMPRESSION: There is noncompressible deep venous thrombus within what appears to represent a duplicated popliteal vein. Otherwise, the visualized veins of the extremity are normal. The critical test result was discussed with SHANNA Ayon, at 11:45 AM on 10/24/2022 and it was ascertained that the content and the importance of the findings was understood at the time of the direct communication.
--- NOTE | 2022-10-22 04:46 | PC.NURSE ---
Pt sleeping at the bedside. Arousable to verbal stimuli. Breaths are even and unlabored. O2 sat 96% on 2L nc. RR 16. Co2 44. NSR on monitory with HR 83. Skin warm and dry. No apparent distress noted. Will continue to monitor.
--- NOTE | 2022-10-22 05:49 | MHC.EDTECH ---
pt was incontinent of urine. This pct and Elana FITCH changed the bedding and cleaned up pt.
[2022-10-22 05:57] LABS: Appearance Urine Cloudy; Color Urine Yellow; Glucose Urine UA Negative (Negative); Leukocyte Esterase Urine Large (3+) (Negative); Nitrite Urine Negative (Negative); PH 5.5 (5.0-9.0); UMIC TRIGGER UACC YES; Urine Blood Small (1+) (Negative); Urine Ketones Negative (Negative); Urine Protein Negative (Neg-Trace)
[2022-10-22 06:07] LABS: Amphetamine Screen Urine Not Detected (Not Detect); Barbiturates, Urine Not Detected (Not Detect); Benzodiazepines Screen Urine Not Detected (Not Detect); Cannabinoid Screen Urine POSITIVE (Not Detect); Cocaine Screen Urine POSITIVE (Not Detect); Fentanyl, urine Not Detected (Not Detect); Opiate Screen Urine Not Detected (Not Detect); Phencyclidine Screen Urine Not Detected (Not Detect)
[2022-10-22 06:19] LABS: Bacteria Urine 4+ (None Seen); RBC Urine 0-2 /HPF (0-2); Squamous Epithelial Cell Urine 0-2 /HPF (0-2); UACC Culture Trigger YES; WBC Urine >50 /HPF (0-5)
[2022-10-22 06:35] LABS: Basophils Percent Auto 0.4 % (0-2); Eosinophils Absolute Auto 0.2 X10*3/uL (0.0-0.4); Eosinophils Percent Auto 1.9 % (0-4); Hematocrit 36.6 % (42.0-52.0); Hemoglobin 11.6 g/dl (14.0-18.0); Imm Gran Abs Auto 0.05 X10*3/uL (0.00-0.03); Imm Gran Pct Auto 0.6 % (0.0-0.4); Lymphocytes Absolute Auto 1.8 X10*3/uL (1.2-4.9); Lymphocytes Percent Auto 19.8 % (20-40); Mean Corpuscular HGB Conc 31.7 g/dl (31.0-36.0); Mean Corpuscular Hemoglobin 31.7 pg (27.0-33.0); Mean Platelet Volume 8.8 fL (9.4-12.4); Monocytes Absolute Auto 0.8 X10*3/uL (0.1-1.2); Monocytes Percent Auto 8.4 % (2-11); Neutrophils Absolute Auto 6.3 x10*3/uL (2.0-8.3); Neutrophils Percent Auto 68.9 % (45-73); Platelet Count 225 X10*3/uL (160-400); Red Blood Count 3.66 X10*6/uL (4.60-5.80); Red Cell Distribution Width 14.9 % (11.0-16.0); White Blood Count 9.1 X10*3/uL (4.8-10.8)
[2022-10-22 06:36] LABS: MANUAL DIFF FLAG NO
--- NOTE | 2022-10-22 06:38 | PC.NURSE ---
O2 sat noted to decrease to 86% on 1L nc. O2 increased to 3L nc. Current o2 sat 97%. Breaths are even and unlabored with equal chest rises. Pt noted to snore and RR decreased to 9 bmp at times. Current RR 14 bmp. aware.
[2022-10-22 06:49] LABS: COVID-19 Test Negative (Negative); IDNOW Serial# BCCEAD1C
--- NOTE | 2022-10-22 06:58 | ED.GENADULT ---
HPI - General Adult General Chief complaint: Overdose Stated complaint: OD Time Seen by Provider: 10/22/22 04:13 Source: EMS Mode of arrival: EMS History of Present Illness HPI narrative: 57-year-old male with history ROSEMARY and left footdrop is brought in by EMS after they were called by patient's family with a found him sleeping/snoring and unresponsive. EMS administered 4 mg Narcan at which time patient became physically aggressive towards EMS and the police had to be involved. On arrival the patient is sleepy but arousable and is a poor historian. Related Data Previous Rx's Medication Instructions Recorded left ankle brace #1 ea 06/29/21 showerhead hand held #1 ea 12/08/21 rollator heavy duty #1 ea 01/10/22 wheelchair #1 ea 01/10/22 walker (Ultra-Light Rollator misc) #1 ea 02/07/22 hydrochlorothiazide 25 mg tablet 25 mg PO QAM #90 tabs 03/10/22 cholecalciferol (vitamin D3) 25 25 mcg PO DAILY 90 days #90 tabs 04/29/22 mcg (1,000 unit) tablet cyclobenzaprine 10 mg tablet 10 mg PO TID 30 days #90 tabs 05/24/22 cephalexin 500 mg capsule 500 mg PO QID 10 days #40 caps 06/09/22 doxycycline monohydrate 100 mg 100 mg PO BID #20 caps 06/09/22 capsule bisacodyl 5 mg tablet,delayed 10 mg PO BEDTIME PRN constipation 06/25/22 release (Dulcolax (bisacodyl)) #60 tabs polyethylene glycol 3350 17 17 g PO DAILY #510 grams 06/25/22 gram/dose oral powder (Miralax) gabapentin 800 mg tablet 800 mg PO TID #90 tabs 10/04/22 tramadol 50 mg tablet 50 mg PO Q8H PRN pain 30 days #90 10/04/22 tabs losartan 50 mg tablet 50 mg PO DAILY 90 days #90 tabs 10/08/22 Allergies Allergy/AdvReac Type Severity Reaction Status Date / Time hydrocodone [HYDROCODONE] Allergy Intermediate ITCHING Verified 06/22/22 10:16 oxycodone Allergy Intermediate rash Verified 06/22/22 10:16 Review of Systems Review of Systems: Prep positives and negatives as stated in HPI [facility] Past Medical History Source: nursing notes reviewed Medical History Chronic back pain Class 2 obesity with body mass index (BMI) of 37.0 to 37.9 in adult Foot drop, left foot Foreign body (FB) in soft tissue GERD (gastroesophageal reflux disease) ROSEMARY (obstructive sleep apnea) Smoker Surgical History History of back surgery History of gastrectomy History of spinal surgery Family History Family History Father Stroke CVD (cardiovascular disease) Mother Palpitation Brother Asthma Brother No problems noted. Brother No problems noted. Sister No problems noted. Social History Social History Housing: Apartment Alcohol intake: never Patient Tobacco Use Status: Current everyday Tobacco user Tobacco use type: Cigarette Cigarettes Per Day: 5 e-Cigarette/Vaping Use: Never Used Second Hand Smoke Exposure: No Advance Directives: No Advance Directives Information Provided: No service: No Current occupational status: disabled Current occupation: rt hand Physical Exam ED Vital Signs: Vital Signs - 24 hr 10/22/22 04:02 10/22/22 04:10 10/22/22 04:45 Temperature 97.4 F Pulse Rate 82 84 80 Respiratory Rate 17 16 15 Blood Pressure 118/62 100/55 L 104/60 Pulse Oximetry 95 97 96 Oxygen Delivery Method Nasal Cannula Nasal Cannula Nasal Cannula Oxygen Flow Rate 2 2 Fraction of Inspired Oxygen 10/22/22 06:11 Temperature Pulse Rate 82 Respiratory Rate 15 Blood Pressure 118/67 Pulse Oximetry 96 Oxygen Delivery Method Nasal Cannula Oxygen Flow Rate 2 Fraction of Inspired Oxygen 43 BMI result Body Mass Index 40.1 VITAL SIGNS: Reviewed. GENERAL: Well developed, well nourished, in no acute distress. HEAD: Normocephalic/atraumatic EYES: PERRLA, EOMI EARS: Ext canals without abnormality, TMs non-bulging and non-erythematous NOSE: Nares patent bilateral OROPHARYNX: no oral lesions noted, posterior pharynx clear NECK: Supple, no adenopathy LUNGS: Normal breath sounds. No adventitious sounds or accessory muscle use. SpO2<96>2L CARDIOVASCULAR: Regular rate and rhythm without noted murmurs ABDOMEN: Soft, non-tender, non-distended with bowel sounds. MUSCULOSKELETAL: No tenderness, deformities, or effusions noted on gross inspection. EXTREMITIES: No cyanosis, clubbing or edema; ULCER NOTED TO DORSAL ASPECT OF LEFT GREAT MTP. SKIN: Inspection of the skin reveals no rashes NEUROLOGIC: Alert and oriented x 4. Strength and sensation to light touch were grossly intact x 4. Medical Decision Making Medical Decision Making [facility] Narrative: 57-year-old male who is urine is not positive for any fentanyl or opiates, that is positive for cocaine/marijuana. Patient remains difficult to arouse but is breathing spontaneously and is not tachycardic. Will pursue lab work, viral test, CXR Differential Diagnosis Drug overdose, viral illness Lab Data 10/22/22 06:29 10/22/22 06:29 Labs: Lab Results 10/22/22 10/22/22 10/22/22 Range/Units 05:52 05:52 06:29 WBC (4.8-10.8) X10*3/uL RBC (4.60-5.80) X10*6/uL Hgb (14.0-18.0) g/dl Hct (42.0-52.0) % MCV (80.0-98.0) fL MCH (27.0-33.0) pg MCHC (31.0-36.0) g/dl RDW (11.0-16.0) % Plt Count (160-400) X10*3/uL MPV (9.4-12.4) fL Immature Gran % (Auto) (0.0-0.4) % Neut % (Auto) (45-73) % Lymph % (Auto) (20-40) % [place] % (Auto) (2-11) % Eos % (Auto) (0-4) % Baso % (Auto) (0-2) % Lymph # (Auto) (1.2-4.9) X10*3/uL [place] # (Auto) (0.1-1.2) X10*3/uL Eos # (Auto) (0.0-0.4) X10*3/uL Baso # (Auto) (0.0-0.2) X10*3/uL Abs Immat Gran (auto) (0.00-0.03) X10*3/uL Absolute Neuts (auto) (2.0-8.3) x10*3/uL Absolute Nucleated RBC (0.0-0.012) X10*3/uL Nucleated RBC % (auto) (0.0-0.2) /100WBC Urine Color Yellow Urine Appearance Cloudy Urine pH 5.5 (5.0-9.0) Ur Specific [place] 1.010 (1.005-1.025) Urine Protein Negative (Neg-Trace) mg/dL Urine Glucose (UA) Negative (Negative) mg/dL Urine Ketones Negative (Negative) mg/dL Urine Blood Small (1+) H (Negative) Urine Nitrite Negative (Negative) Ur Leukocyte Esterase Large (3+) H (Negative) Urine RBC 0-2 (0-2) /HPF Urine WBC >50 H (0-5) /HPF Ur Squamous Epith Cells 0-2 (0-2) /HPF Urine Bacteria 4+ (None Seen) Hyaline Casts 3-5 (0-2) /LPF Urine Opiates Screen Not Detected (Not Detect) Urine Fentanyl Screen Not Detected (Not Detect) Ur Barbiturates Screen Not Detected (Not Detect) Ur Phencyclidine Scrn Not Detected (Not Detect) Ur Amphetamines Screen Not Detected (Not Detect) U Benzodiazepines Scrn Not Detected (Not Detect) Urine Cocaine Screen POSITIVE H (Not Detect) U Marijuana (THC) Screen POSITIVE H (Not Detect) COVID-19 (EDDIE) Negative (Negative) COVID-19 Clin Com See Note 10/22/22 Range/Units 06:29 WBC 9.1 (4.8-10.8) X10*3/uL RBC 3.66 L (4.60-5.80) X10*6/uL Hgb 11.6 L D (14.0-18.0) g/dl Hct 36.6 L (42.0-52.0) % MCV 100.0 H (80.0-98.0) fL MCH 31.7 (27.0-33.0) pg MCHC 31.7 (31.0-36.0) g/dl RDW 14.9 (11.0-16.0) % Plt Count 225 (160-400) X10*3/uL MPV 8.8 L (9.4-12.4) fL Immature Gran % (Auto) 0.6 H (0.0-0.4) % Neut % (Auto) 68.9 (45-73) % Lymph % (Auto) 19.8 L (20-40) % [place] % (Auto) 8.4 (2-11) % Eos % (Auto) 1.9 (0-4) % Baso % (Auto) 0.4 (0-2) % Lymph # (Auto) 1.8 (1.2-4.9) X10*3/uL [place] # (Auto) 0.8 (0.1-1.2) X10*3/uL Eos # (Auto) 0.2 (0.0-0.4) X10*3/uL Baso # (Auto) 0.0 (0.0-0.2) X10*3/uL Abs Immat Gran (auto) 0.05 H (0.00-0.03) X10*3/uL Absolute Neuts (auto) 6.3 (2.0-8.3) x10*3/uL Absolute Nucleated RBC 0.000 (0.0-0.012) X10*3/uL Nucleated RBC % (auto) 0.0 (0.0-0.2) /100WBC Urine Color Urine Appearance Urine pH (5.0-9.0) Ur Specific [place] (1.005-1.025) Urine Protein (Neg-Trace) mg/dL Urine Glucose (UA) (Negative) mg/dL Urine Ketones (Negative) mg/dL Urine Blood (Negative) Urine Nitrite (Negative) Ur Leukocyte Esterase (Negative) Urine RBC (0-2) /HPF Urine WBC (0-5) /HPF Ur Squamous Epith Cells (0-2) /HPF Urine Bacteria (None Seen) Hyaline Casts (0-2) /LPF Urine Opiates Screen (Not Detect) Urine Fentanyl Screen (Not Detect) Ur Barbiturates Screen (Not Detect) Ur Phencyclidine Scrn (Not Detect) Ur Amphetamines Screen (Not Detect) U Benzodiazepines Scrn (Not Detect) Urine Cocaine Screen (Not Detect) U Marijuana (THC) Screen (Not Detect) COVID-19 (EDDIE) (Negative) COVID-19 Clin Com Discharge Plan Discharge Clinical Impression: Overdose, Mental status alteration Patient Disposition: Still a Patient Prescriptions: No Action (DME) left ankle brace large See Rx Instructions .Route .MEDSUPPLY Qty: 1 0RF Rx Instructions: As directed (DME) showerhead hand held See Rx Instructions .Route .MEDSUPPLY Qty: 1 0RF Rx Instructions: As directed (DME) rollator heavy duty heavy duty See Rx Instructions .Route .MEDSUPPLY Qty: 1 0RF Rx Instructions: As directed (DME) wheelchair See Rx Instructions .Route .MEDSUPPLY Qty: 1 0RF Rx Instructions: Patient needs to rest his left foot (DME) Ultra-Light Rollator Misc See Rx Instructions .ROUTE .MEDSUPPLY Qty: 1 0RF Rx Instructions: As directed hydrochlorothiazide 25 mg tablet 25 mg PO QAM Qty: 90 1RF cholecalciferol (vitamin D3) 25 mcg (1,000 unit) tablet 25 mcg PO DAILY 90 Days Qty: 90 3RF cyclobenzaprine 10 mg tablet 10 mg PO TID 30 Days Qty: 90 3RF gabapentin 800 mg tablet 800 mg PO TID Qty: 90 3RF tramadol 50 mg tablet 50 mg PO Q8H PRN (Reason: pain) 30 Days Qty: 90 0RF losartan 50 mg tablet 50 mg PO DAILY 90 Days Qty: 90 3RF cephalexin 500 mg capsule 500 mg PO QID 10 Days Qty: 40 0RF doxycycline monohydrate 100 mg capsule 100 mg PO BID Qty: 20 0RF polyethylene glycol 3350 [Miralax] 17 gram/dose powder 17 g PO DAILY Qty: 510 0RF bisacodyl [Dulcolax (bisacodyl)] 5 mg tablet,delayed release (DR/EC) 10 mg PO BEDTIME PRN (Reason: constipation) Qty: 60 0RF
[2022-10-22 06:59] LABS: Alanine Aminotransferase 9 U/L (0-40); Albumin Level 3.3 g/dL (3.5-5.0); Alkaline Phosphatase 72 U/L (39-117); Anion Gap 13 (12-20); Aspartate Amino Transferase 15 U/L (5-37); Bilirubin Total 0.6 mg/dL (0.0-1.0); Blood Urea Nitrogen 16 mg/dL (9-16); Carbon Dioxide 28 mmol/L (22-29); Chloride 104 mmol/L (96-108); Creatinine Clr Calc Pharmacy 63.6; Estimated Glomerular Filt Rate 45; Ethanol < 10 mg/dL; Glucose Random 94 mg/dL (60-115); Potassium 4.6 mmol/L (3.3-5.1); Sodium 140 mmol/L (135-145); Total Protein 7.4 g/dL (6.5-8.0)
--- NOTE | 2022-10-22 07:30 | PC.NURSE ---
PT IS AWAKE TO VERBAL STIMULI. PT IS OBTUNDED . PUPILS PINPOINT. 02 SAT 96% ON 2L/M VIA N/C.
--- NOTE | 2022-10-22 07:47 | MHC.EDTECH ---
Pt was soiled in urine, this PCT and RN Ally cleaned patient up and new bed linens were placed. Pt resting quietly in bed.
[2022-10-22] MEDS: 0.9 % Sodium Chloride 2,052 ML 2052 ML IV (08:43)
[2022-10-22 08:59] LABS: Lactic Acid 1.1 mmol/L (0.5-2.0)
[2022-10-22] MEDS: cefTRIAXone sodium 1 GM in 0.9 % Sodium Chloride 50 ML IV (08:59)
[2022-10-22] MEDS: Naloxone HCl 0.4 MG/ML VIAL IVPUSH (09:00)
--- NOTE | 2022-10-22 09:05 | PC.NURSE ---
narcan 0.4m ivp no change in pt's mentation pt remains somnolent vs obtunded. heplock # 20 to r ac. aware.
[2022-10-22 09:06] LABS: IDNOW Serial# 16C4AD1C; Influenza A Negative (Negative); Influenza B2 Negative (Negative)
--- NOTE | 2022-10-22 09:27 | ECG_ITS ---
Test Reason : overdose Blood Pressure : / mmHG Vent. Rate : 075 BPM Atrial Rate : 075 BPM P-R Int : 204 ms QRS Dur : 096 ms QT Int : 364 ms P-R-T Axes : 043 026 048 degrees QTc Int : 406 ms Normal sinus rhythm with sinus arrhythmia Septal infarct , age undetermined Abnormal ECG When compared with ECG of 27-AUG-2019 09:57, NV interval has decreased QRS duration has decreased Referred By: Tomasz Hobson Electronically Signed By:HAILEY PACKER
[2022-10-22 10:20] LABS: Troponin-I High Sensitivity 8.5 ng/L (<3.5-35.0)
--- NOTE | 2022-10-22 10:36 | PC.NURSE ---
pt's brother bhavna mckeon ([phone]) called and was updated on pt status.
--- NOTE | 2022-10-22 11:27 | PC.NURSE ---
pt became more arousable when schroeder cath was placed. pt was a/o x . md at bedside. pt was able to answer some questions ask by the md. pt then return to sleep.
[2022-10-22 15:24] LABS: ABG Base Excess 2.2 mmol/L; ABG HCO3 25 mmol/L (22-26); ABG pCO2 35 mmHg (32-45); ABG pH 7.46 (7.35-7.45); ABG pO2 125 mmHg (83-108)
[2022-10-22] MEDS: Azithromycin 500 MG in 0.9 % Sodium Chloride 250 ML 125 MG IV (15:31)
--- NOTE | 2022-10-22 16:12 | PM.IMHP ---
History of Present Illness Date of Service: 10/22/22 [facility] Chief Complaint: Somnolence 57-year-old male with history of chronic back pain, left footdrop, GERD, hypertension, obstructive sleep apnea compliant with CPAP, polysubstance abuser, and current everyday smoker presented to the ED earlier today after his family called EMS upon finding him sleeping/snoring and unresponsive. EMS administered 4 mg Narcan at which time patient became physically aggressive and please had become a vault. On exam, the patient is deeply somnolent but arousable to painful stimuli and his brother is at bedside assisting with history. Per ED staff, the patient did wake and stated he had been bingeing on crack cocaine, using 20 rocks per day and is homeless. He has also not been sleeping over the last few days secondary to the cocaine use. Of note, his brother states that the patient was recently hospitalized in a detox facility for 3 months and review of previous record shows recent hospitalization at [facility] with discharge in 09/19 for COVID-19 and left lower lobe pneumonia. He was also hospitalized at [facility] with discharge on 08/04 for pyelonephritis. In the ED, VSS. Pupils noted to be pinpoint in ED and given additional dose 4mg narcan given somnolence with little improvement. Pt placed on CPAP given deep somnolence with ABG revealing pH 7.45, pCO2 35.4, PO2 125, oximetry 99%. No leukocytosis. Creatinine 1.59, BUN 16 (baseline creatinine 1.07). Electrolyte levels normal. Lactic acid 1.1. Troponin 8.5. Urinalysis with 3+ leukocytes, negative nitrites, 1+ blood, 4+ bacteria. U tox positive for cocaine and marijuana. Head CT without any acute intracranial pathology. CXR with hypoexpanded lungs and left perihilar infiltrate/atelectasis. Patient denies any fevers, chills, abdominal pain, nausea, vomiting, cough, dysuria, hematuria, shortness of breath, chest pain. Does endorse increased urinary frequency. In the ED, treated with 2 L IV bolus fluids, 1 g ceftriaxone, 500 mg azithromycin, and 4 mg Narcan as above. Review of Systems Review of Systems: General: No fevers, malaise, unintentional weight loss HEENT: No blurred vision, diplopia. No sore throat, nasal congestion, rhinorrhea, sinus pain, ear pain Cardiovascular: No chest pain, palpitations, or leg edema Respiratory: No shortness of breath, wheezing, cough GI: No abdominal pain, nausea, vomiting, diarrhea, constipation, melena, hematochezia : No dysuria, hematuria, increased urinary frequency, decreased urinary output MSK: No myalgia, back pain Neuro: No headaches, weakness, paresthesias Psych: +polysubstance abuse, +insomnia Skin: No rashes or lesions [facility] Medical History Cellulitis of right middle finger Chronic back pain Class 2 obesity with body mass index (BMI) of 37.0 to 37.9 in adult Cocaine use Foot drop, left foot Foreign body (FB) in soft tissue GERD (gastroesophageal reflux disease) Hypertension ROSEMARY (obstructive sleep apnea) Smoker Family History Father Stroke CVD (cardiovascular disease) Mother Palpitation Brother Asthma Brother No problems noted. Brother No problems noted. Sister No problems noted. Surgical History History of back surgery History of gastrectomy History of spinal surgery Social History Housing: Apartment Alcohol intake: never Patient Tobacco Use Status: Current everyday Tobacco user Tobacco use type: Cigarette Cigarettes Per Day: 5 e-Cigarette/Vaping Use: Never Used Second Hand Smoke Exposure: No Advance Directives: No Advance Directives Information Provided: No service: No Current occupational status: disabled Current occupation: rt hand Meds Allergies Allergy/AdvReac Type Severity Reaction Status Date / Time hydrocodone [HYDROCODONE] Allergy Intermediate ITCHING Verified 06/22/22 10:16 oxycodone Allergy Intermediate rash Verified 06/22/22 10:16 Active Medications: Current Medications Enoxaparin Sodium (Enoxaparin Sodium 40 Mg/0.4 Ml Syringe) 40 mg SUBCUT Q24H [facility] Ceftriaxone Sodium 1 gm/ (Sodium Chloride) 50 mls @ 100 mls/hr IV Q24H [facility] Azithromycin 500 mg/ Sodium (Chloride) 250 mls @ 125 mls/hr IV Q24H [facility] Stop: 10/24/22 16:14 Pharmacy Consult (Consult Rx Perform Med Rec) 1 each MISCELLANE ONCE PRN PRN Reason: Consult order Sodium Chloride (0.9 % Sodium Chloride Flush 3 Ml Syringe) 3 ml IVFLUSH [facility] Medications Medication Instructions Recorded Confirmed Last Taken Type cyclobenzaprine 10 mg tablet 10 mg PO TID PRN Muscle Spasm 10/22/22 10/22/22 Unknown History escitalopram oxalate 10 mg tablet 1 tab PO DAILY 10/22/22 10/22/22 Unknown History hydrochlorothiazide 25 mg tablet 25 mg PO DAILY 10/22/22 10/22/22 Unknown History ibuprofen 600 mg tablet 1 tab PO Q6H PRN Pain (Scale Score 10/22/22 10/22/22 Unknown History 1-3) nicotine (polacrilex) 4 mg gum 1 ea PO Q2H PRN Nicotine Cravings 10/22/22 10/22/22 Unknown History polyethylene glycol 3350 17 17 g PO DAILY PRN Constipation 10/22/22 10/22/22 Unknown History gram/dose oral powder (Miralax) quetiapine 200 mg tablet 1 tab PO BEDTIME 10/22/22 10/22/22 Unknown History Physical Exam Vital Signs and Narrative: Vital Signs: Last Vital Signs Temp 96.8 F 10/22/22 07:32 Pulse 78 10/22/22 15:35 Resp 20 10/22/22 15:35 BP 141/69 H 10/22/22 15:35 Pulse Ox 100 10/22/22 15:35 O2 Del Method 10/22/22 15:35 O2 Flow Rate 3 10/22/22 15:35 FiO2 43 10/22/22 06:11 Oxygen Flow Rate 2 10/22/22 04:02 BMI result Body Mass Index 40.1 Constitutional - somnolent but arousable to pain, No apparent distress on CPAP Eyes - PERRLA Cardiovascular - S1S2, RRR, No edema Respiratory - Normal lung expansion, Normal respiratory effort, No respiratory distress on CPAP, CTA bilaterally Gastrointestinal - NT / ND; +BS; No rebound or guarding - No CVA tenderness Extremities - no calf tenderness bilaterally, no swelling Skin - Warm/Dry Neurological - somnolent but arousable and able to answer yes/no questions briefly before falling back asleep, PERRLA. Patient unable to participate in further neuro exam Psychological - Appropriate affect Results Labs 10/22/22 06:29 10/22/22 06:29 Labs: Laboratory Results - last 24 hr 10/22/22 10/22/22 10/22/22 05:52 05:52 06:29 MCV MCH MCHC RDW Plt Count MPV Immature Gran % (Auto) Neut % (Auto) Lymph % (Auto) [place] % (Auto) Eos % (Auto) Baso % (Auto) Lymph # (Auto) [place] # (Auto) Eos # (Auto) Baso # (Auto) Abs Immat Gran (auto) Absolute Neuts (auto) Absolute Nucleated RBC Nucleated RBC % (auto) O2 Saturation ABG pH at Pt Temp ABG pCO2 at Pt Temp ABG pO2 at Pt Temp ABG HCO3 ABG Base Excess (Actual) Anion Gap Estim Creat Clear Calc Estimated GFR Random Glucose Lactic Acid Calcium Total Bilirubin AST ALT Alkaline Phosphatase Troponin I High Sens Total Protein Albumin Urine Color Yellow Urine Appearance Cloudy Urine pH 5.5 Ur Specific [place] 1.010 Urine Protein Negative Urine Glucose (UA) Negative Urine Ketones Negative Urine Blood Small (1+) H Urine Nitrite Negative Ur Leukocyte Esterase Large (3+) H Urine RBC 0-2 Urine WBC >50 H Ur Squamous Epith Cells 0-2 Urine Bacteria 4+ Hyaline Casts 3-5 Urine Opiates Screen Not Detected Urine Fentanyl Screen Not Detected Ur Barbiturates Screen Not Detected Ur Phencyclidine Scrn Not Detected Ur Amphetamines Screen Not Detected U Benzodiazepines Scrn Not Detected Urine Cocaine Screen POSITIVE H U Marijuana (THC) Screen POSITIVE H Ethyl Alcohol COVID-19 (EDDIE) Negative COVID-19 Clin Com See Note Influenza Type A (SWATI) Influenza Type B (SWATI) Influenza A & B Note 10/22/22 10/22/22 10/22/22 06:29 06:29 06:29 MCV 100.0 H MCH 31.7 MCHC 31.7 RDW 14.9 Plt Count 225 MPV 8.8 L Immature Gran % (Auto) 0.6 H Neut % (Auto) 68.9 Lymph % (Auto) 19.8 L [place] % (Auto) 8.4 Eos % (Auto) 1.9 Baso % (Auto) 0.4 Lymph # (Auto) 1.8 [place] # (Auto) 0.8 Eos # (Auto) 0.2 Baso # (Auto) 0.0 Abs Immat Gran (auto) 0.05 H Absolute Neuts (auto) 6.3 Absolute Nucleated RBC 0.000 Nucleated RBC % (auto) 0.0 O2 Saturation ABG pH at Pt Temp ABG pCO2 at Pt Temp ABG pO2 at Pt Temp ABG HCO3 ABG Base Excess (Actual) Anion Gap 13 Estim Creat Clear Calc 63.6 Estimated GFR 45 Random Glucose 94 Lactic Acid Calcium 9.0 Total Bilirubin 0.6 AST 15 ALT 9 Alkaline Phosphatase 72 Troponin I High Sens 8.5 Total Protein 7.4 Albumin 3.3 L Urine Color Urine Appearance Urine pH Ur Specific [place] Urine Protein Urine Glucose (UA) Urine Ketones Urine Blood Urine Nitrite Ur Leukocyte Esterase Urine RBC Urine WBC Ur Squamous Epith Cells Urine Bacteria Hyaline Casts Urine Opiates Screen Urine Fentanyl Screen Ur Barbiturates Screen Ur Phencyclidine Scrn Ur Amphetamines Screen U Benzodiazepines Scrn Urine Cocaine Screen U Marijuana (THC) Screen Ethyl Alcohol < 10 COVID-19 (EDDIE) COVID-19 Clin Com Influenza Type A (SWATI) Influenza Type B (SWATI) Influenza A & B Note 10/22/22 10/22/22 10/22/22 08:39 08:39 15:17 MCV MCH MCHC RDW Plt Count MPV Immature Gran % (Auto) Neut % (Auto) Lymph % (Auto) [place] % (Auto) Eos % (Auto) Baso % (Auto) Lymph # (Auto) [place] # (Auto) Eos # (Auto) Baso # (Auto) Abs Immat Gran (auto) Absolute Neuts (auto) Absolute Nucleated RBC Nucleated RBC % (auto) O2 Saturation 99.0 ABG pH at Pt Temp 7.46 H ABG pCO2 at Pt Temp 35 ABG pO2 at Pt Temp 125 H ABG HCO3 25 ABG Base Excess (Actual) 2.2 Anion Gap Estim Creat Clear Calc Estimated GFR Random Glucose Lactic Acid 1.1 Calcium Total Bilirubin AST ALT Alkaline Phosphatase Troponin I High Sens Total Protein Albumin Urine Color Urine Appearance Urine pH Ur Specific [place] Urine Protein Urine Glucose (UA) Urine Ketones Urine Blood Urine Nitrite Ur Leukocyte Esterase Urine RBC Urine WBC Ur Squamous Epith Cells Urine Bacteria Hyaline Casts Urine Opiates Screen Urine Fentanyl Screen Ur Barbiturates Screen Ur Phencyclidine Scrn Ur Amphetamines Screen U Benzodiazepines Scrn Urine Cocaine Screen U Marijuana (THC) Screen Ethyl Alcohol COVID-19 (EDDIE) COVID-19 Clin Com Influenza Type A (SWATI) Negative Influenza Type B (SWATI) Negative Influenza A & B Note See Note Imaging Radiologist's Impressions: Impressions Head CT 10/22/22 09:35 IMPRESSION: No CT evidence for acute intracranial pathology. Chest X-Ray 10/22/22 09:55 IMPRESSION: Hypoexpanded lungs. Suspect left parahilar infiltrate/atelectasis. Assessment and Plan (1) Cocaine use: Status: Acute (2) Overdose: Status: Acute (3) Mental status alteration: Status: Acute (4) Acute UTI: Status: Acute Plan 57-year-old male with history of chronic back pain, left footdrop, GERD, hypertension, obstructive sleep apnea compliant with CPAP, polysubstance abuser, and current everyday smoker admitted for cocaine overdose, UTI with ANTOINE. #Cocaine overdose -Continue CPAP for respiratory support with hypersomnolance r/t OD with background ROSEMARY -Hemodynamically stable. ABG pH 7.45, pCO2 35.4, PO2 125, oximetry 99% -Addiction medicine consult -hold [employer]ENS[employer] suppressants at this time #ANTOINE- related to UTI -Creat 1.59, baseline 1.07 -Given 2l IVF bolus in ED. Hold on addl fluids at this time -Encourage PO fluids once more awake -Treat UTI below -Follow BMP #Acute UTI -UA with 3+ leuks, neg nitrites, 1+ blood, 4+ bacteria -Continue IV ceftriaxone -UC and BC x2 pending -Avoid nephrotoxins #HTN- reasonably controlled -hold hydrochlorothiazide, losartan due to ANTOINE # chronic low back pain -hold tramadol and gabapentin at this time due to above # depression/mood disorder -continue escitalopram. Hold Seroquel due to above # cigarette smoker -continue NRT #ROSEMARY -continue cpap DVT prophylaxis-Lovenox Full code Patient requires inpatient stay of at least 2 midnights for management of hypersomnolence secondary to cocaine overdose with close monitoring of respiratory status as well as management of ANTOINE/UTI requiring IV antibiotics and IV fluid resuscitation with close monitoring of renal function and electrolyte levels. Time Spent With Patient Time: Total time managing care of this patient today ____ minutes. Quality Stroke Does the patient have a stroke diagnosis?: No VTE Prior VTE?: No VTE Risk Level:: Medical - moderate - high VTE Device Contraindication: Treatment Not Indicated VTE Drug Contraindication: N/A - Med Ordered
--- NOTE | 2022-10-22 16:31 | PHA.MEDREC ---
Pharmacy Consult ? Medication Reconciliation Pharmacy has completed the medication reconciliation. unable to speak with patient. medications entered based on claim history
--- NOTE | 2022-10-22 18:02 | PC.NURSE ---
Patient lethargic on cpap arousable to reposition, or touch. Patient gets very angry when he gets woken up. Patient requesting something to drink but falls asleep before you turn around. Patients medications at bedside in blister packs. Patient being admitted to room 468. tele: sinus rythym 70-80's. IV 20g in right AC. Will continue with plan of care.
--- NOTE | 2022-10-22 18:22 | PC.NURSE ---
Unable to do columbia scale due to patients lethargy.
--- NOTE | 2022-10-22 18:36 | PC.NURSE ---
COLUMBIA SCALE COMPLETED TO ALLOW DISCHARGE TO OCCUR FROM ED LIVE TRACKER ON ADMISSION. PT WAS UNABLE TO RESPOND TO QUESTION
[2022-10-22] MEDS: Enoxaparin Sodium 40 MG/0.4 ML SYRINGE SUBCUT (18:37)
[2022-10-22] MEDS: 0.9 % Sodium Chloride Flush 3 ML SYRINGE IVFLUSH (18:38)
[2022-10-22 21:17] LABS: ABG Refer to POC result
[2022-10-23] VITALS (9 sets, daily range): BP systolic 127–170; BP diastolic 67–103; PULSE 79–98; RESP 16–20; TEMP 36.6–37.4; O2SAT 93–99
[2022-10-23] MEDS: 0.9 % Sodium Chloride Flush 3 ML SYRINGE IVFLUSH ×4 (03:42→20:59)
[2022-10-23 06:49] LABS: Anion Gap 14 (12-20); Blood Urea Nitrogen 13 mg/dL (9-16); Calcium 9.2 mg/dL (8.4-10.2); Carbon Dioxide 24 mmol/L (22-29); Chloride 105 mmol/L (96-108); Creatinine Clr Calc Pharmacy 73.1; Estimated Glomerular Filt Rate 54; Glucose Random 70 mg/dL (60-115); Potassium 4.4 mmol/L (3.3-5.1); Sodium 139 mmol/L (135-145)
--- NOTE | 2022-10-23 09:03 | HO.PM.IMPN ---
Subjective Subjective Date of Service: 10/23/22 Interval History: Seen in follow up for cocaine abuse/OD, UTI/ANTOINE Interval History: creatinine trending down. Awake and alert, oriented x4. Desires detox/rehab. No complaints Review of Systems Review of Systems: Yes all other systems are reviewed and are negative Physical Exam Vital Signs: Vital Signs: Last Vital Signs Temp 98.2 F 10/23/22 07:52 Pulse 81 10/23/22 07:52 Resp 20 10/23/22 07:52 BP 138/80 10/23/22 07:52 Pulse Ox 96 10/23/22 07:52 O2 Del Method 10/23/22 07:52 O2 Flow Rate 3 10/22/22 18:36 FiO2 43 10/22/22 06:11 Oxygen Flow Rate 2 10/22/22 04:02 BMI result Body Mass Index 38.8 Constitutional - Awake and Alert, No apparent distress Eyes - PERRLA, EOMI Cardiovascular - S1S2, RRR, No edema Respiratory - Normal lung expansion, Normal respiratory effort, No respiratory distress, CTA bilaterally Gastrointestinal - NT / ND; +BS; No rebound or guarding - No CVA tenderness Extremities - no calf tenderness bilaterally, no swelling Skin - Warm/Dry Neurological - Alert & oriented x3, CN II-XII in tact Psychological - Appropriate affect Objective Data Active Medications Bisacodyl (Bisacodyl 5 Mg Tablet.Dr) 10 mg PO BEDTIME PRN PRN Reason: constipation Cyclobenzaprine HCl (Cyclobenzaprine Hcl 10 Mg Tablet) 10 mg PO TID PRN PRN Reason: Muscle Spasm Enoxaparin Sodium (Enoxaparin Sodium 40 Mg/0.4 Ml Syringe) 40 mg SUBCUT Q24H [facility] Last Admin: 10/22/22 18:37 Dose: 40 mg Documented By: TESS Escitalopram Oxalate (Escitalopram Oxalate 10 Mg Tablet) 10 mg PO DAILY [facility] Ceftriaxone Sodium 1 gm/ (Sodium Chloride) 50 mls @ 100 mls/hr IV Q24H [facility] Nicotine Polacrilex (Nicotine Polacrilex 2 Mg Gum) 2 mg BUCCAL Q2H PRN PRN Reason: Nicotine Cravings Pharmacy Consult (Consult Rx Perform Med Rec) 1 each MISCELLANE ONCE PRN PRN Reason: Consult order Polyethylene Glycol (Polyethylene Glycol 3350 17 Gm Powd.Pack) 17 gm PO DAILY PRN PRN Reason: Constipation Sodium Chloride (0.9 % Sodium Chloride Flush 3 Ml Syringe) 3 ml IVFLUSH QSHIFT [facility] Last Admin: 10/23/22 03:42 Dose: 3 ml Documented By: EDY Vitamin D (Cholecalciferol (Vitamin D3) 25 Mcg Tablet) 25 mcg PO DAILY [facility] Labs 10/22/22 06:29 10/23/22 06:00 Labs: Laboratory Results - last 24 hr 10/22/22 10/22/22 10/22/22 06:29 08:39 15:17 O2 Saturation 99.0 ABG pH at Pt Temp 7.46 H ABG pCO2 at Pt Temp 35 ABG pO2 at Pt Temp 125 H ABG HCO3 25 ABG Base Excess (Actual) 2.2 Anion Gap Estim Creat Clear Calc Estimated GFR Random Glucose Calcium Troponin I High Sens 8.5 Influenza Type A (SWATI) Negative Influenza Type B (SWATI) Negative Influenza A & B Note See Note 10/23/22 06:00 O2 Saturation ABG pH at Pt Temp ABG pCO2 at Pt Temp ABG pO2 at Pt Temp ABG HCO3 ABG Base Excess (Actual) Anion Gap 14 Estim Creat Clear Calc 73.1 Estimated GFR 54 Random Glucose 70 Calcium 9.2 Troponin I High Sens Influenza Type A (SWATI) Influenza Type B (SWATI) Influenza A & B Note Assessment and Plan (1) Cocaine use: Status: Acute (2) Overdose: Status: Acute (3) Mental status alteration: Status: Acute (4) Acute UTI: Status: Acute Plan 57-year-old male with history of chronic back pain, left footdrop, GERD, hypertension, obstructive sleep apnea compliant with CPAP, polysubstance abuser, and current everyday smoker admitted for cocaine overdose, UTI with ANTOINE. #Cocaine overdose -Pt awake, alert, oriented x 4 this morning -Continue CPAP only at bedtime -HD -Addiction Medicine consult pending. Care team consult placed, desires detox #ANTOINE- related to UTI- improving -Creat improved to 1.36 (yesterday 1.59) -Encourage PO fluids -Treat UTI below -Follow BMP -Avoid nephrotoxins #Acute UTI -UA with 3+ leuks, neg nitrites, 1+ blood, 4+ bacteria -UC growing gram negative rods, await final culture. BC x2 pending -Continue IV ceftriaxone #HTN- reasonably controlled -hold hydrochlorothiazide, losartan due to ANTOINE # chronic low back pain -Resume tramadol and gabapentin as pt more awake # depression/mood disorder -continue escitalopram.? Resume Seroquel bedtime # cigarette smoker -continue NRT #ROSEMARY -continue cpap #Severe obesity, BMI >38 -Weight loss efforts encouraged DVT prophylaxis-Lovenox Full code Patient ongoing inpt stay for management of ANTOINE with UTI requiring IV antibiotics and close monitoring of renal function/electrolytes awaiting final cultures, and placement for detox from crack cocaine with overdose on admission requiring CPAP for respiratory support due to somnolance. Time Spent With Patient Time: Total time managing care of this patient today 25 minutes. Quality Stroke Does the patient have a stroke diagnosis?: No VTE Prior VTE?: No VTE Risk Level:: Medical - moderate - high VTE Device Contraindication: Treatment Not Indicated VTE Drug Contraindication: N/A - Med Ordered
[2022-10-23] MEDS: Escitalopram Oxalate 10 MG TABLET PO (10:03)
[2022-10-23] MEDS: Cholecalciferol (Vitamin D3) 25 MCG TABLET PO (10:03)
[2022-10-23] MEDS: cefTRIAXone sodium 1 GM in 0.9 % Sodium Chloride 50 ML IV (10:03)
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
--- NOTE | 2022-10-23 13:32 | HO.ADDICTCON ---
History of Present Illness Date of Service: 10/23/2022 Chief Complaint: cocaine overdose, AMS, UTI with ANTOINE Additional Sources of Information: Patient is a 57 year old male currently medically admitted with AMS and UTI. He presented to the ED after family reports they were unable to wake him at home--EMS administered narcan, to which patient reportedly responded to and became aggressive. Once at [facility] he was again very difficuly to wake, narcan adminsitered with no effect. UDS +cocaine only Patient seen in room 458. Awake, alert, pleasant and engaged in interview. Patient reports he has been using cocaine daily for some some time now. He is unaware of why he was difficult to wake, but feels it is related to not sleeping for over 4 days. When asked if he took anything else, he reported one 800mg tab of gabapentin. Patient states he had been in recovery for 9 years up until 2019 (when pandemic started). He reports being isolated contibuted to recurrence of use. He is currently experiencing homelessness. He was recently at [facility] in [place] for ATS (detox), but reports he got sick with Covid and had to leave to another program. He is expressing desire to get back into treatment Denies any other substance use including opiates and alcohol. Review of Systems Constitutional: Reports as per HPI and Reports no additional constitutional complaints Diagnostics Vital Signs (24Hr): Vital Signs - 24 hr 10/22/22 13:40 10/22/22 13:44 10/22/22 15:35 Temperature Pulse Rate 73 78 Respiratory Rate 15 20 Blood Pressure 151/72 H 141/69 H Pulse Oximetry 95 100 Oxygen Delivery Method CPAP CPAP Oxygen Flow Rate 3 3 10/22/22 16:35 10/22/22 18:36 10/22/22 20:12 Temperature 97.2 F Pulse Rate 80 80 Respiratory Rate 18 16 20 Blood Pressure 159/72 H 147/82 H Pulse Oximetry 98 99 Oxygen Delivery Method CPAP Room Air Oxygen Flow Rate 3 10/23/22 00:25 10/23/22 00:00 10/23/22 02:44 Temperature 97.8 F Pulse Rate 86 79 Respiratory Rate 16 18 Blood Pressure 142/67 H Pulse Oximetry 97 99 Oxygen Delivery Method CPAP CPAP Oxygen Flow Rate 10/23/22 07:52 10/23/22 11:53 Temperature 98.2 F 99.4 F Pulse Rate 81 98 Respiratory Rate 20 19 Blood Pressure 138/80 127/84 Pulse Oximetry 96 97 Oxygen Delivery Method Room Air Room Air Oxygen Flow Rate BMI result Body Mass Index 38.8 Labs 10/22/22 06:29 10/23/22 06:00 Labs: Laboratory Results - last 48 hr 10/22/22 10/22/22 10/22/22 05:52 05:52 06:29 WBC RBC Hgb Hct MCV MCH MCHC RDW Plt Count MPV Immature Gran % (Auto) Neut % (Auto) Lymph % (Auto) [place] % (Auto) Eos % (Auto) Baso % (Auto) Lymph # (Auto) [place] # (Auto) Eos # (Auto) Baso # (Auto) Abs Immat Gran (auto) Absolute Neuts (auto) Absolute Nucleated RBC Nucleated RBC % (auto) O2 Saturation ABG pH at Pt Temp ABG pCO2 at Pt Temp ABG pO2 at Pt Temp ABG HCO3 ABG Base Excess (Actual) Sodium Potassium Chloride Carbon Dioxide Anion Gap BUN Creatinine Estim Creat Clear Calc Estimated GFR Random Glucose Lactic Acid Calcium Total Bilirubin AST ALT Alkaline Phosphatase Troponin I High Sens Total Protein Albumin Urine Color Yellow Urine Appearance Cloudy Urine pH 5.5 Ur Specific [place] 1.010 Urine Protein Negative Urine Glucose (UA) Negative Urine Ketones Negative Urine Blood Small (1+) H Urine Nitrite Negative Ur Leukocyte Esterase Large (3+) H Urine RBC 0-2 Urine WBC >50 H Ur Squamous Epith Cells 0-2 Urine Bacteria 4+ Hyaline Casts 3-5 Urine Opiates Screen Not Detected Urine Fentanyl Screen Not Detected Ur Barbiturates Screen Not Detected Ur Phencyclidine Scrn Not Detected Ur Amphetamines Screen Not Detected U Benzodiazepines Scrn Not Detected Urine Cocaine Screen POSITIVE H U Marijuana (THC) Screen POSITIVE H Ethyl Alcohol COVID-19 (EDDIE) Negative COVID-19 Clin Com See Note Influenza Type A (SWATI) Influenza Type B (SWATI) Influenza A & B Note 10/22/22 10/22/22 10/22/22 06:29 06:29 06:29 WBC 9.1 RBC 3.66 L Hgb 11.6 L D Hct 36.6 L MCV 100.0 H MCH 31.7 MCHC 31.7 RDW 14.9 Plt Count 225 MPV 8.8 L Immature Gran % (Auto) 0.6 H Neut % (Auto) 68.9 Lymph % (Auto) 19.8 L [place] % (Auto) 8.4 Eos % (Auto) 1.9 Baso % (Auto) 0.4 Lymph # (Auto) 1.8 [place] # (Auto) 0.8 Eos # (Auto) 0.2 Baso # (Auto) 0.0 Abs Immat Gran (auto) 0.05 H Absolute Neuts (auto) 6.3 Absolute Nucleated RBC 0.000 Nucleated RBC % (auto) 0.0 O2 Saturation ABG pH at Pt Temp ABG pCO2 at Pt Temp ABG pO2 at Pt Temp ABG HCO3 ABG Base Excess (Actual) Sodium 140 Potassium 4.6 Chloride 104 Carbon Dioxide 28 Anion Gap 13 BUN 16 Creatinine 1.59 H Estim Creat Clear Calc 63.6 Estimated GFR 45 Random Glucose 94 Lactic Acid Calcium 9.0 Total Bilirubin 0.6 AST 15 ALT 9 Alkaline Phosphatase 72 Troponin I High Sens 8.5 Total Protein 7.4 Albumin 3.3 L Urine Color Urine Appearance Urine pH Ur Specific [place] Urine Protein Urine Glucose (UA) Urine Ketones Urine Blood Urine Nitrite Ur Leukocyte Esterase Urine RBC Urine WBC Ur Squamous Epith Cells Urine Bacteria Hyaline Casts Urine Opiates Screen Urine Fentanyl Screen Ur Barbiturates Screen Ur Phencyclidine Scrn Ur Amphetamines Screen U Benzodiazepines Scrn Urine Cocaine Screen U Marijuana (THC) Screen Ethyl Alcohol < 10 COVID-19 (EDDIE) COVID-19 Clin Com Influenza Type A (SWATI) Influenza Type B (SWATI) Influenza A & B Note 10/22/22 10/22/22 10/22/22 08:39 08:39 15:17 WBC RBC Hgb Hct MCV MCH MCHC RDW Plt Count MPV Immature Gran % (Auto) Neut % (Auto) Lymph % (Auto) [place] % (Auto) Eos % (Auto) Baso % (Auto) Lymph # (Auto) [place] # (Auto) Eos # (Auto) Baso # (Auto) Abs Immat Gran (auto) Absolute Neuts (auto) Absolute Nucleated RBC Nucleated RBC % (auto) O2 Saturation 99.0 ABG pH at Pt Temp 7.46 H ABG pCO2 at Pt Temp 35 ABG pO2 at Pt Temp 125 H ABG HCO3 25 ABG Base Excess (Actual) 2.2 Sodium Potassium Chloride Carbon Dioxide Anion Gap BUN Creatinine Estim Creat Clear Calc Estimated GFR Random Glucose Lactic Acid 1.1 Calcium Total Bilirubin AST ALT Alkaline Phosphatase Troponin I High Sens Total Protein Albumin Urine Color Urine Appearance Urine pH Ur Specific [place] Urine Protein Urine Glucose (UA) Urine Ketones Urine Blood Urine Nitrite Ur Leukocyte Esterase Urine RBC Urine WBC Ur Squamous Epith Cells Urine Bacteria Hyaline Casts Urine Opiates Screen Urine Fentanyl Screen Ur Barbiturates Screen Ur Phencyclidine Scrn Ur Amphetamines Screen U Benzodiazepines Scrn Urine Cocaine Screen U Marijuana (THC) Screen Ethyl Alcohol COVID-19 (EDDIE) COVID-19 Clin Com Influenza Type A (SWATI) Negative Influenza Type B (SWATI) Negative Influenza A & B Note See Note 10/23/22 06:00 WBC RBC Hgb Hct MCV MCH MCHC RDW Plt Count MPV Immature Gran % (Auto) Neut % (Auto) Lymph % (Auto) [place] % (Auto) Eos % (Auto) Baso % (Auto) Lymph # (Auto) [place] # (Auto) Eos # (Auto) Baso # (Auto) Abs Immat Gran (auto) Absolute Neuts (auto) Absolute Nucleated RBC Nucleated RBC % (auto) O2 Saturation ABG pH at Pt Temp ABG pCO2 at Pt Temp ABG pO2 at Pt Temp ABG HCO3 ABG Base Excess (Actual) Sodium 139 Potassium 4.4 Chloride 105 Carbon Dioxide 24 Anion Gap 14 BUN 13 Creatinine 1.36 Estim Creat Clear Calc 73.1 Estimated GFR 54 Random Glucose 70 Lactic Acid Calcium 9.2 Total Bilirubin AST ALT Alkaline Phosphatase Troponin I High Sens Total Protein Albumin Urine Color Urine Appearance Urine pH Ur Specific [place] Urine Protein Urine Glucose (UA) Urine Ketones Urine Blood Urine Nitrite Ur Leukocyte Esterase Urine RBC Urine WBC Ur Squamous Epith Cells Urine Bacteria Hyaline Casts Urine Opiates Screen Urine Fentanyl Screen Ur Barbiturates Screen Ur Phencyclidine Scrn Ur Amphetamines Screen U Benzodiazepines Scrn Urine Cocaine Screen U Marijuana (THC) Screen Ethyl Alcohol COVID-19 (EDDIE) COVID-19 Clin Com Influenza Type A (SWATI) Influenza Type B (SWATI) Influenza A & B Note Imaging Radiology Impressions: ITS Impressions Head CT 10/22/22 09:35 IMPRESSION: No CT evidence for acute intracranial pathology. Chest X-Ray 10/22/22 09:55 IMPRESSION: Hypoexpanded lungs. Suspect left parahilar infiltrate/atelectasis. Mental Status Exam Mental Status Exam Patient Appearance: Appropriate Level of Consciousness: Awake, Appropriate and Alert Patient Behavior: Appropriate, Talkative and Cooperative Affect Description: Calm and Appropriate Thought Process: Goal Oriented Thought Content: positive for Intact and positive for Goal Oriented Medications Medications Current Medications Bisacodyl (Bisacodyl 5 Mg Tablet.Dr) 10 mg PO BEDTIME PRN PRN Reason: constipation Cyclobenzaprine HCl (Cyclobenzaprine Hcl 10 Mg Tablet) 10 mg PO TID PRN PRN Reason: Muscle Spasm Enoxaparin Sodium (Enoxaparin Sodium 40 Mg/0.4 Ml Syringe) 40 mg SUBCUT Q24H [facility] Last Admin: 10/22/22 18:37 Dose: 40 mg Escitalopram Oxalate (Escitalopram Oxalate 10 Mg Tablet) 10 mg PO DAILY [facility] Last Admin: 10/23/22 10:03 Dose: 10 mg Ceftriaxone Sodium 1 gm/ (Sodium Chloride) 50 mls @ 100 mls/hr IV Q24H [facility] Last Infusion: 10/23/22 10:47 Dose: Infused Nicotine Polacrilex (Nicotine Polacrilex 2 Mg Gum) 2 mg BUCCAL Q2H PRN PRN Reason: Nicotine Cravings Pharmacy Consult (Consult Rx Perform Med Rec) 1 each MISCELLANE ONCE PRN PRN Reason: Consult order Polyethylene Glycol (Polyethylene Glycol 3350 17 Gm Powd.Pack) 17 gm PO DAILY PRN PRN Reason: Constipation Sodium Chloride (0.9 % Sodium Chloride Flush 3 Ml Syringe) 3 ml IVFLUSH QSHIFT [facility] Last Admin: 10/23/22 10:03 Dose: 3 ml Vitamin D (Cholecalciferol (Vitamin D3) 25 Mcg Tablet) 25 mcg PO DAILY [facility] Last Admin: 10/23/22 10:03 Dose: 25 mcg Allergies Allergies Allergy/AdvReac Type Severity Reaction Status Date / Time hydrocodone [HYDROCODONE] Allergy Intermediate ITCHING Verified 06/22/22 10:16 oxycodone Allergy Intermediate rash Verified 06/22/22 10:16 Assessment & Plan Assessment & Plan (1) Cocaine use disorder: Status: Acute Code(s): F14.10 - Cocaine abuse, uncomplicated Assessment and Plan: discussed case with hospitalist--patient likely ready for d/c tmrw (10/23). Recovery Support RN working on referral to [facility] facility so patient can go from [facility] to treatment once discharged RN to follow up in AM Total time managing care of this patient today _40___ minutes. PMFSH Past Medical History Medical History Cellulitis of right middle finger Chronic back pain Class 2 obesity with body mass index (BMI) of 37.0 to 37.9 in adult Cocaine use Foot drop, left foot Foreign body (FB) in soft tissue GERD (gastroesophageal reflux disease) Hypertension ROSEMARY (obstructive sleep apnea) Smoker Family History Family History Father Stroke CVD (cardiovascular disease) Mother Palpitation Brother Asthma Brother No problems noted. Brother No problems noted. Sister No problems noted. Surgical History Surgical History History of back surgery History of gastrectomy History of spinal surgery Social History Social History Household Members: None Housing: Homeless Do you presently have visiting nurse or other home services: No Alcohol intake: never Patient Tobacco Use Status: Current everyday Tobacco user Tobacco use type: Cigarette Cigarettes Per Day: 5 e-Cigarette/Vaping Use: Never Used Second Hand Smoke Exposure: No Substance Use Type: Crack/Cocaine and Marijuana service: No Current occupational status: disabled Current occupation: rt hand
--- NOTE | 2022-10-23 14:03 | MHC.RECOVRN ---
Pt interested in ATS and likely discharge tomorrow, 10/24. Referral sent to [facility] for possible placement at [facility].
[2022-10-23] MEDS: hydroCHLOROthiazide 25 MG TABLET PO (17:11)
[2022-10-23] MEDS: Enoxaparin Sodium 40 MG/0.4 ML SYRINGE SUBCUT (17:12)
[2022-10-23] MEDS: Losartan Potassium 50 MG TABLET PO (17:12)
[2022-10-23] MEDS: Gabapentin 400 MG CAPSULE 800 MG PO ×2 (17:12→20:59)
--- NOTE | 2022-10-23 18:16 | PC.NURSE ---
Received order to d/c schroeder cathater. Schroeder removed at 12:15, patient voided 200ml at 13:00 with no complaints.
[2022-10-23] MEDS: QUEtiapine Fumarate 200 MG TABLET PO (20:59)
--- NOTE | 2022-10-24 01:08 | PC.NURSE ---
Pt took CPAP of around 01:00. Refuses.
[2022-10-24 03:02] VITALS: BP 104/55; PULSE 78; RESP 16; TEMP 36.7; O2SAT 93
[2022-10-24 06:28] LABS: MANUAL DIFF FLAG NO
[2022-10-24 06:35] LABS: Basophils Percent Auto 0.4 % (0-2); Eosinophils Absolute Auto 0.1 X10*3/uL (0.0-0.4); Eosinophils Percent Auto 1.3 % (0-4); Hematocrit 37.3 % (42.0-52.0); Hemoglobin 11.7 g/dl (14.0-18.0); Imm Gran Abs Auto 0.02 X10*3/uL (0.00-0.03); Imm Gran Pct Auto 0.3 % (0.0-0.4); Lymphocytes Absolute Auto 1.5 X10*3/uL (1.2-4.9); Lymphocytes Percent Auto 21.2 % (20-40); Mean Corpuscular HGB Conc 31.4 g/dl (31.0-36.0); Mean Corpuscular Hemoglobin 31.9 pg (27.0-33.0); Mean Corpuscular Volume 101.6 fL (80.0-98.0); Mean Platelet Volume 9.3 fL (9.4-12.4); Monocytes Absolute Auto 0.5 X10*3/uL (0.1-1.2); Monocytes Percent Auto 6.8 % (2-11); Neutrophils Absolute Auto 4.9 x10*3/uL (2.0-8.3); Platelet Count 240 X10*3/uL (160-400); Red Blood Count 3.67 X10*6/uL (4.60-5.80); Red Cell Distribution Width 14.7 % (11.0-16.0)
[2022-10-24 06:44] LABS: Anion Gap 12 (12-20); Blood Urea Nitrogen 17 mg/dL (9-16); Calcium 8.9 mg/dL (8.4-10.2); Carbon Dioxide 26 mmol/L (22-29); Chloride 104 mmol/L (96-108); Creatinine Clr Calc Pharmacy 56.2; Estimated Glomerular Filt Rate 40; Glucose Random 136 mg/dL (60-115); Potassium 4.1 mmol/L (3.3-5.1); Sodium 138 mmol/L (135-145)
[2022-10-24 07:21] VITALS: BP 124/60; PULSE 71; RESP 16; TEMP 37.1; O2SAT 95
[2022-10-24 07:23] LABS: Vitamin B12 152 pg/mL (200-900)
--- NOTE | 2022-10-24 09:08 | MHC.CDI.CONC ---
CDI Concurrent Query Documentation Clarification: PHYSICIAN'S DOCUMENTATION REQUEST Date of Query: 10/24/22 0908 Patient Name: Eliezer Ludwig Admit Date: 10/22/22 Dear Doctor, A review of the medical record indicates additional documentation may be needed. Please review below and update the documentation accordingly. Clinical Indicators: Risk Factors/Clinical Indicators/Treatments ED 10/22 - Patient arrived with altered mental status, became physically aggressive to EMS, poor historian. Suspect the altered mental status is due to UTI. Polysubstance abuser Based on the above, could you clarify in the Progress Notes which, if any of the following, is the most likely etiology of the confusion/altered mental status? Encephalopathy - indicate type, if any, such as metabolic, toxic, alcoholic, etc. Encephalopathy, treating, resolved, rule out etc. Other etiology (please specify) Unable to determine Use of terms such as suspected, likely, concern for, or probable (associated with a specific diagnosis that is being evaluated, monitored, or treated as if it exists) are acceptable and can be coded in the inpatient setting, when documented at the time of discharge. Thank you, Jennifer Escobar [facility], CDIS Extension: [phone] Please use your independent medical judgment in providing your response. THIS QUERY IS PART OF THE PERMANENT MEDICAL RECORD Provider Response: Metabolic Encephalopathy (toxic)
[2022-10-24] MEDS: Gabapentin 400 MG CAPSULE 800 MG PO ×3 (09:42→19:52)
[2022-10-24] MEDS: Escitalopram Oxalate 10 MG TABLET PO (09:43)
[2022-10-24] MEDS: Cholecalciferol (Vitamin D3) 25 MCG TABLET PO (09:43)
[2022-10-24] MEDS: cefTRIAXone sodium 1 GM in 0.9 % Sodium Chloride 50 ML IV (09:43)
[2022-10-24] MEDS: 0.9 % Sodium Chloride Flush 3 ML SYRINGE IVFLUSH ×3 (09:44→19:52)
[2022-10-24] MEDS: Cyanocobalamin (Vitamin B-12) 1,000 MCG TABLET 1000 MCG PO (11:58)
[2022-10-24 12:10] LABS: Creatinine Urine 101.05 mg/dL
--- NOTE | 2022-10-24 12:46 | HO.PM.IMPN ---
Subjective Subjective Date of Service: 10/24/22 Interval History: Seen in follow up for cocaine abuse/OD, UTI/ANTOINE, now LLE DVT Interval History: creatinine increased to 1.77. Awake and alert, oriented x4. Complaining of LLE calf pain and neuropathy. Review of Systems Review of Systems: Yes all other systems are reviewed and are negative Physical Exam Vital Signs: Vital Signs: Last Vital Signs Temp 98.7 F 10/24/22 07:21 Pulse 71 10/24/22 07:21 Resp 16 10/24/22 07:21 BP 124/60 10/24/22 07:21 Pulse Ox 95 10/24/22 07:21 O2 Del Method 10/24/22 07:21 O2 Flow Rate 3 10/22/22 18:36 FiO2 43 10/22/22 06:11 Oxygen Flow Rate 2 10/22/22 04:02 BMI result Body Mass Index 38.8 Constitutional - Awake and Alert, No apparent distress Eyes - PERRLA, EOMI Cardiovascular - S1S2, RRR, No edema Respiratory - Normal lung expansion, Normal respiratory effort, No respiratory distress, CTA bilaterally Gastrointestinal - NT / ND; +BS; No rebound or guarding - No CVA tenderness Extremities - left calf tenderness with palpable cords, mild swelling. RLE without swelling Skin - Warm/Dry Neurological - Alert & oriented x3 Psychological - Appropriate affect Objective Data Active Medications Bisacodyl (Bisacodyl 5 Mg Tablet.Dr) 10 mg PO BEDTIME PRN PRN Reason: constipation Cyanocobalamin (Cyanocobalamin (Vitamin B-12) 1,000 Mcg Tablet) 1,000 mcg PO DAILY [facility] Last Admin: 10/24/22 11:58 Dose: 1,000 mcg Documented By: JOHN Cyclobenzaprine HCl (Cyclobenzaprine Hcl 10 Mg Tablet) 10 mg PO TID PRN PRN Reason: Muscle Spasm Escitalopram Oxalate (Escitalopram Oxalate 10 Mg Tablet) 10 mg PO DAILY [facility] Last Admin: 10/24/22 09:43 Dose: 10 mg Documented By: JOHN Gabapentin (Gabapentin 400 Mg Capsule) 800 mg PO TID [facility] Last Admin: 10/24/22 09:42 Dose: 800 mg Documented By: JOHN Hydrochlorothiazide (Hydrochlorothiazide 25 Mg Tablet) 25 mg PO DAILY [facility]; Protocol Last Admin: 10/24/22 10:13 Dose: Not Given Documented By: JOHN Non-Admin Reason: held by physician Ceftriaxone Sodium 1 gm/ (Sodium Chloride) 50 mls @ 100 mls/hr IV Q24H [facility] Last Infusion: 10/24/22 10:19 Dose: 0 mls/hr Documented By: JOHN Losartan Potassium (Losartan Potassium 50 Mg Tablet) 50 mg PO DAILY [facility]; Protocol Last Admin: 10/24/22 10:14 Dose: Not Given Documented By: JOHN Non-Admin Reason: held by physician Nicotine Polacrilex (Nicotine Polacrilex 2 Mg Gum) 2 mg BUCCAL Q2H PRN PRN Reason: Nicotine Cravings Pharmacy Consult (Consult Rx Perform Med Rec) 1 each MISCELLANE ONCE PRN PRN Reason: Consult order Polyethylene Glycol (Polyethylene Glycol 3350 17 Gm Powd.Pack) 17 gm PO DAILY PRN PRN Reason: Constipation Quetiapine Fumarate (Quetiapine Fumarate 200 Mg Tablet) 200 mg PO BEDTIME [facility] Last Admin: 10/23/22 20:59 Dose: 200 mg Documented By: AJ Sodium Chloride (0.9 % Sodium Chloride Flush 3 Ml Syringe) 3 ml IVFLUSH QSHIFT [facility] Last Admin: 10/24/22 09:44 Dose: 3 ml Documented By: JOHN Vitamin D (Cholecalciferol (Vitamin D3) 25 Mcg Tablet) 25 mcg PO DAILY [facility] Last Admin: 10/24/22 09:43 Dose: 25 mcg Documented By: JOHN Labs 10/24/22 05:45 10/24/22 05:45 Labs: Laboratory Results - last 24 hr 10/24/22 10/24/22 10/24/22 05:45 05:45 05:45 MCV 101.6 H MCH 31.9 MCHC 31.4 RDW 14.7 Plt Count 240 MPV 9.3 L Immature Gran % (Auto) 0.3 Neut % (Auto) 70.0 Lymph % (Auto) 21.2 [place] % (Auto) 6.8 Eos % (Auto) 1.3 Baso % (Auto) 0.4 Lymph # (Auto) 1.5 [place] # (Auto) 0.5 Eos # (Auto) 0.1 Baso # (Auto) 0.0 Abs Immat Gran (auto) 0.02 Absolute Neuts (auto) 4.9 Absolute Nucleated RBC 0.000 Nucleated RBC % (auto) 0.0 Anion Gap 12 Estim Creat Clear Calc 56.2 Estimated GFR 40 Random Glucose 136 H Calcium 8.9 Vitamin B12 152 L Folate 12.0 Ur Random Sodium Urine Creatinine 10/24/22 10/24/22 11:30 11:30 MCV MCH MCHC RDW Plt Count MPV Immature Gran % (Auto) Neut % (Auto) Lymph % (Auto) [place] % (Auto) Eos % (Auto) Baso % (Auto) Lymph # (Auto) [place] # (Auto) Eos # (Auto) Baso # (Auto) Abs Immat Gran (auto) Absolute Neuts (auto) Absolute Nucleated RBC Nucleated RBC % (auto) Anion Gap Estim Creat Clear Calc Estimated GFR Random Glucose Calcium Vitamin B12 Folate Ur Random Sodium 116.0 Urine Creatinine 101.05 Microbiology Microbiology Results: Microbiology 10/22/22 08:51 Blood Culture - Preliminary Blood - Venous No growth after 48 hours. 10/22/22 08:40 Blood Culture - Preliminary Blood - Venous No growth after 48 hours. 10/22/22 Unknown Urine Culture - Final Urine clean catch - Urine butler top Escherichia coli Assessment and Plan (1) Cocaine use: Status: Acute (2) Overdose: Status: Acute (3) Mental status alteration: Status: Acute (4) Acute UTI: Status: Acute (5) Deep vein thrombosis (DVT) of distal vein of left lower extremity: Status: Acute Plan 57-year-old male with history of chronic back pain, left footdrop, GERD, hypertension, obstructive sleep apnea compliant with CPAP, polysubstance abuser, and current everyday smoker admitted for cocaine overdose, UTI with ANTOINE. #Cocaine overdose -Initially hypersomnoland with toxic encephalopathy following cocaine OD. Now awake, alert, oriented x 4 -Continue CPAP only at bedtime -HD -Addiction Medicine consult and pt will d/c to detox #ANTOINE- related to cocaine use/ACEI/Diuretic use -Creat again increased to 1.77 (1.36 yesterday) -Discussed with nephro. ANTOINE in setting of cocaine use, losartan and HCTZ resumed too soon. -Avoid nephrotoxins. Hold losartan and hctz. -Follow BMP #Acute UTI -UC with ecoli sensitive to ceftriaxone -Continue IV ceftriaxone (D3) -BC pending #DVT LLE -Venous duplex with DVT in duplicate left popliteal vein -No hx GI bleed, intracranial hemorrhage, known bleeding disorder -initiate Eliquis 10 mg b.i.d. x7 days, then 5 mg b.i.d. 3 month duration #HTN- reasonably controlled -hold hydrochlorothiazide, losartan due to ANTOINE # chronic low back pain -Resume tramadol and gabapentin as pt more awake # depression/mood disorder -continue escitalopram.? Resume Seroquel bedtime # cigarette smoker -continue NRT #ROSEMARY -continue cpap #Severe obesity, BMI >38 -Weight loss efforts encouraged DVT prophylaxis- eliquis Full code Patient ongoing inpt stay for management of ANTOINE following cocaine OD requiring close monitoring of renal function/electrolytes awaiting final cultures, and placement for detox from crack cocaine with overdose on admission Time Spent With Patient Time: Total time managing care of this patient today ____ minutes. Quality Stroke Does the patient have a stroke diagnosis?: No VTE Prior VTE?: No VTE Risk Level:: Medical - moderate - high VTE Device Contraindication: Treatment Not Indicated VTE Drug Contraindication: N/A - Med Ordered
[2022-10-24 15:44] VITALS: BP 141/90; PULSE 95; RESP 18; TEMP 37.2; O2SAT 96
[2022-10-24] MEDS: Apixaban 5 MG TABLET 10 MG PO (17:43)
[2022-10-24] MEDS: QUEtiapine Fumarate 200 MG TABLET PO (19:52)
[2022-10-24 20:00] VITALS: BP 141/81; PULSE 92; RESP 18; TEMP 37.2; O2SAT 94
--- NOTE | 2022-10-24 21:25 | PM.CNNEP ---
History of Present Illness Reason for Consult Consult date: 10/24/22 Chief Complaint Chief complaint: cocaine overdose, AMS, UTI with ANTOINE History of Present Illness Narrative: 57-year-old male with history of polysubstance abuse, presented to hospital for AMS.? EMS administered 4 mg Narcan at which time patient became physically aggressive . Patient did wake up and stated he had been bingeing on crack cocaine, using 20 rocks per day and is homeless.? He has also not been sleeping over the last few days secondary to the cocaine use.? Of note, his brother states that the patient was recently hospitalized in a detox facility for 3 months and review of previous record shows recent hospitalization at [facility] with discharge in 09/19 for COVID-19 and left lower lobe pneumonia.? He was also hospitalized at [facility] with discharge on 08/04 for pyelonephritis. In the ED, VSS. Pupils noted to be pinpoint in ED and given additional dose 4mg narcan given somnolence with little improvement. Pt placed on CPAP given deep somnolence with ABG revealing pH 7.45, pCO2 35.4, PO2 125, oximetry 99%.? No leukocytosis.? Creatinine 1.59, BUN 16 (baseline creatinine 1.07).? Electrolyte levels normal.? Lactic acid 1.1.? Troponin 8.5.? Urinalysis with 3+ leukocytes, negative nitrites, 1+ blood, 4+ bacteria.? U tox positive for cocaine and marijuana.? Head CT without any acute intracranial pathology.? CXR with hypoexpanded lungs and left perihilar infiltrate/atelectasis.? Patient denies any fevers, chills, abdominal pain, nausea, vomiting, cough, dysuria, hematuria, shortness of breath, chest pain.? Does endorse increased urinary frequency.? In the ED, treated with 2 L IV bolus fluids, 1 g ceftriaxone, 500 mg azithromycin, and 4 mg Narcan. He had ANTOINE which initially improved but to worsen again. Nephrology has been consulted to assist in his clinical care Review of Systems Review of Systems Yes all other systems are reviewed and are negative PMFSH Past Medical History Medical History Cellulitis of right middle finger Chronic back pain Class 2 obesity with body mass index (BMI) of 37.0 to 37.9 in adult Cocaine use Foot drop, left foot Foreign body (FB) in soft tissue GERD (gastroesophageal reflux disease) Hypertension ROSEMARY (obstructive sleep apnea) Smoker Family History Family History Father Stroke CVD (cardiovascular disease) Mother Palpitation Brother Asthma Brother No problems noted. Brother No problems noted. Sister No problems noted. Surgical History Surgical History History of back surgery History of gastrectomy History of spinal surgery Social History Social History Household Members: None Housing: Homeless Do you presently have visiting nurse or other home services: No Alcohol intake: never Patient Tobacco Use Status: Current everyday Tobacco user Tobacco use type: Cigarette Cigarettes Per Day: 5 e-Cigarette/Vaping Use: Never Used Second Hand Smoke Exposure: No Substance Use Type: Crack/Cocaine and Marijuana service: No Current occupational status: disabled Current occupation: rt hand Meds Allergies Allergy/AdvReac Type Severity Reaction Status Date / Time hydrocodone [HYDROCODONE] Allergy Intermediate ITCHING Verified 06/22/22 10:16 oxycodone Allergy Intermediate rash Verified 06/22/22 10:16 Active Medications: Current Medications Apixaban (Apixaban 5 Mg Tablet) 10 mg PO BID [facility] Stop: 10/31/22 09:01 Last Admin: 10/24/22 17:43 Dose: 10 mg Bisacodyl (Bisacodyl 5 Mg Tablet.Dr) 10 mg PO BEDTIME PRN PRN Reason: constipation Cyanocobalamin (Cyanocobalamin (Vitamin B-12) 1,000 Mcg Tablet) 1,000 mcg PO DAILY [facility] Last Admin: 10/24/22 11:58 Dose: 1,000 mcg Cyclobenzaprine HCl (Cyclobenzaprine Hcl 10 Mg Tablet) 10 mg PO TID PRN PRN Reason: Muscle Spasm Escitalopram Oxalate (Escitalopram Oxalate 10 Mg Tablet) 10 mg PO DAILY [facility] Last Admin: 10/24/22 09:43 Dose: 10 mg Gabapentin (Gabapentin 400 Mg Capsule) 800 mg PO TID [facility] Last Admin: 10/24/22 19:52 Dose: 800 mg Hydrochlorothiazide (Hydrochlorothiazide 25 Mg Tablet) 25 mg PO DAILY [facility]; Protocol Last Admin: 10/24/22 10:13 Dose: Not Given Ceftriaxone Sodium 1 gm/ (Sodium Chloride) 50 mls @ 100 mls/hr IV Q24H [facility] Last Infusion: 10/24/22 10:19 Dose: Infused Losartan Potassium (Losartan Potassium 50 Mg Tablet) 50 mg PO DAILY [facility]; Protocol Last Admin: 10/24/22 10:14 Dose: Not Given Nicotine Polacrilex (Nicotine Polacrilex 2 Mg Gum) 2 mg BUCCAL Q2H PRN PRN Reason: Nicotine Cravings Pharmacy Consult (Consult Rx Perform Med Rec) 1 each MISCELLANE ONCE PRN PRN Reason: Consult order Polyethylene Glycol (Polyethylene Glycol 3350 17 Gm Powd.Pack) 17 gm PO DAILY PRN PRN Reason: Constipation Quetiapine Fumarate (Quetiapine Fumarate 200 Mg Tablet) 200 mg PO BEDTIME [facility] Last Admin: 10/24/22 19:52 Dose: 200 mg Sodium Chloride (0.9 % Sodium Chloride Flush 3 Ml Syringe) 3 ml IVFLUSH QSHIFT [facility] Last Admin: 10/24/22 19:52 Dose: 3 ml Vitamin D (Cholecalciferol (Vitamin D3) 25 Mcg Tablet) 25 mcg PO DAILY [facility] Last Admin: 10/24/22 09:43 Dose: 25 mcg Home Medications Medication Instructions Recorded Confirmed Last Taken Type cyclobenzaprine 10 mg tablet 10 mg PO TID PRN Muscle Spasm 10/22/22 10/22/22 Unknown History escitalopram oxalate 10 mg tablet 1 tab PO DAILY 10/22/22 10/22/22 Unknown History hydrochlorothiazide 25 mg tablet 25 mg PO DAILY 10/22/22 10/22/22 Unknown History ibuprofen 600 mg tablet 1 tab PO Q6H PRN Pain (Scale Score 10/22/22 10/22/22 Unknown History 1-3) nicotine (polacrilex) 4 mg gum 1 ea PO Q2H PRN Nicotine Cravings 10/22/22 10/22/22 Unknown History polyethylene glycol 3350 17 17 g PO DAILY PRN Constipation 10/22/22 10/22/22 Unknown History gram/dose oral powder (Miralax) quetiapine 200 mg tablet 1 tab PO BEDTIME 10/22/22 10/22/22 Unknown History Physical Exam Vital Signs: Last Vital Signs Temp 98.9 F 10/24/22 20:00 Pulse 92 10/24/22 20:00 Resp 18 10/24/22 20:00 BP 141/81 H 10/24/22 20:00 Pulse Ox 94 10/24/22 20:00 O2 Del Method 10/24/22 20:00 O2 Flow Rate 3 10/22/22 18:36 FiO2 43 10/22/22 06:11 Oxygen Flow Rate 2 10/22/22 04:02 BMI result Body Mass Index 38.8 Const General: no acute distress Eyes EOM: EOMs intact bilaterally Neck Neck: Yes supple Resp Auscultation: diminished lung sounds Cardio Rate: regular rate GI Palpation (GI): Soft to palpation Neuro General: moves all extremities Results Lab Results 10/24/22 05:45 10/24/22 05:45 Lab results: Chemistry 10/22/22 10/23/22 10/24/22 06:29 06:00 05:45 Sodium 140 139 138 Potassium 4.6 4.4 4.1 Carbon Dioxide 28 24 26 BUN 16 13 17 H Creatinine 1.59 H 1.36 1.77 H Calcium 9.0 9.2 8.9 Hematology 10/22/22 10/24/22 06:29 05:45 WBC 9.1 7.0 Hgb 11.6 L D 11.7 L Plt Count 225 240 Urinalysis 10/22/22 05:52 Urine Color Yellow Urine Appearance Cloudy Urine pH 5.5 Ur Specific [place] 1.010 Urine Protein Negative Urine Glucose (UA) Negative Urine Ketones Negative Urine Blood Small (1+) H Urine Nitrite Negative Ur Leukocyte Esterase Large (3+) H Urine RBC 0-2 Urine WBC >50 H Ur Squamous Epith Cells 0-2 Hyaline Casts 3-5 Urine Studies 10/24/22 11:30 Urine Creatinine 101.05 Assessment and Plan (1) Acute kidney injury: Status: Acute Plan Acute Kidney injury due to tubular injury Had cocaine overdose which has caused severe renal vasoconstriction Unlikely to have cocaine associated vasculitis no ACEI/ARB/NSAID's/Diuretics IV fluids/ supportive care for now Labs AM. Shall closely F/U Time Spent With Patient Time: Total time managing care of this patient today ____ minutes. Procedures Date of Service Date of Service: 10/24/22
[2022-10-25 03:28] VITALS: BP 110/59; PULSE 77; RESP 18; TEMP 36.2; O2SAT 92
[2022-10-25 06:28] LABS: Anion Gap 12 (12-20); Blood Urea Nitrogen 19 mg/dL (9-16); Calcium 8.5 mg/dL (8.4-10.2); Carbon Dioxide 27 mmol/L (22-29); Chloride 105 mmol/L (96-108); Creatinine Clr Calc Pharmacy 69.6; Estimated Glomerular Filt Rate 51; Glucose Random 112 mg/dL (60-115); Potassium 4.1 mmol/L (3.3-5.1); Sodium 140 mmol/L (135-145)
[2022-10-25 07:17] VITALS: BP 149/80; PULSE 70; RESP 20; TEMP 35.5; O2SAT 94
[2022-10-25] MEDS: cefTRIAXone sodium 1 GM in 0.9 % Sodium Chloride 50 ML IV (08:04)
[2022-10-25] MEDS: Apixaban 5 MG TABLET 10 MG PO ×2 (08:09→20:08)
[2022-10-25] MEDS: Cholecalciferol (Vitamin D3) 25 MCG TABLET PO (08:09)
[2022-10-25] MEDS: Cyanocobalamin (Vitamin B-12) 1,000 MCG TABLET 1000 MCG PO (08:09)
[2022-10-25] MEDS: Gabapentin 400 MG CAPSULE 800 MG PO ×3 (08:09→20:08)
[2022-10-25] MEDS: 0.9 % Sodium Chloride Flush 3 ML SYRINGE IVFLUSH ×3 (08:10→20:09)
[2022-10-25] MEDS: Escitalopram Oxalate 10 MG TABLET PO (08:10)
--- NOTE | 2022-10-25 10:05 | PM.PNNEP ---
Subjective Subjective Date of Service: 10/25/22 Interval history: Events noted. All recent data reviewed Physical Exam Vital Signs: Vital Signs: Last Vital Signs Temp 96 F L 10/25/22 07:17 Pulse 70 10/25/22 07:17 Resp 20 10/25/22 07:17 BP 149/80 H 10/25/22 07:17 Pulse Ox 94 10/25/22 07:17 O2 Del Method 10/25/22 07:17 O2 Flow Rate 3 10/22/22 18:36 FiO2 43 10/22/22 06:11 Oxygen Flow Rate 2 10/22/22 04:02 BMI result Body Mass Index 38.8 Const: General: no acute distress Neck: Neck: Yes supple Resp: Auscultation: diminished lung sounds Cardio: Rate: regular rate GI: Palpation (GI): Soft to palpation Neuro: General: moves all extremities Objective Data Labs 10/24/22 05:45 10/25/22 05:17 Labs: Laboratory Results - last 24 hr 10/24/22 10/24/22 10/25/22 11:30 11:30 05:17 Sodium 140 Potassium 4.1 Chloride 105 Carbon Dioxide 27 Anion Gap 12 BUN 19 H Creatinine 1.43 H Estim Creat Clear Calc 69.6 Estimated GFR 51 Random Glucose 112 D Calcium 8.5 Ur Random Sodium 116.0 Urine Creatinine 101.05 Microbiology Microbiology Results: Microbiology 10/22/22 08:51 Blood - Venous Blood Culture - Preliminary No growth after 48 hours. 10/22/22 08:40 Blood - Venous Blood Culture - Preliminary No growth after 48 hours. 10/22/22 Unknown Urine clean catch - Urine butler top Urine Culture - Final Escherichia coli Procedures Date of Service Date of Service: 10/25/22 Assessment & Plan Assessment and plan (1) Acute kidney injury: Status: Acute Assessment and Plan: Acute Kidney injury due to tubular injury; Renal fn better Had cocaine overdose which has caused severe renal vasoconstriction Unlikely to have cocaine associated vasculitis no ACEI/ARB/NSAID's/Diuretics IV fluids/ supportive care for now Labs AM. Shall closely F/U Progress Note: Quality Stroke Does the patient have a stroke diagnosis?: No
--- NOTE | 2022-10-25 11:44 | P.PNIM_ITS ---
Subjective Subjective Date of Service: 10/25/22 Interval History: cc: ams interval history: improving Physical Exam Vital Signs: Vital Signs: Last Vital Signs Temp 96 F L 10/25/22 07:17 Pulse 70 10/25/22 07:17 Resp 20 10/25/22 07:17 BP 149/80 H 10/25/22 07:17 Pulse Ox 94 10/25/22 07:17 O2 Del Method 10/25/22 07:17 O2 Flow Rate 3 10/22/22 18:36 FiO2 43 10/22/22 06:11 Oxygen Flow Rate 2 10/22/22 04:02 BMI result Body Mass Index 38.8 Const: General: no acute distress Neck: Neck: Yes supple Resp: Auscultation: diminished lung sounds Cardio: Rate: regular rate GI: Palpation (GI): Soft to palpation Neuro: General: moves all extremities Objective Data Active Medications Apixaban (Apixaban 5 Mg Tablet) 10 mg PO BID [facility] Stop: 10/31/22 09:01 Last Admin: 10/25/22 08:09 Dose: 10 mg Documented By: RIGOBERTO Bisacodyl (Bisacodyl 5 Mg Tablet.) 10 mg PO BEDTIME PRN PRN Reason: constipation Cyanocobalamin (Cyanocobalamin (Vitamin B-12) 1,000 Mcg Tablet) 1,000 mcg PO DAILY [facility] Last Admin: 10/25/22 08:09 Dose: 1,000 mcg Documented By: RIGOBERTO Cyclobenzaprine HCl (Cyclobenzaprine Hcl 10 Mg Tablet) 10 mg PO TID PRN PRN Reason: Muscle Spasm Escitalopram Oxalate (Escitalopram Oxalate 10 Mg Tablet) 10 mg PO DAILY [facility] Last Admin: 10/25/22 08:10 Dose: 10 mg Documented By: RIGOBERTO Gabapentin (Gabapentin 400 Mg Capsule) 800 mg PO TID [facility] Last Admin: 10/25/22 08:09 Dose: 800 mg Documented By: RIGOBERTO Hydrochlorothiazide (Hydrochlorothiazide 25 Mg Tablet) 25 mg PO DAILY [facility]; Protocol Last Admin: 10/24/22 10:13 Dose: Not Given Documented By: JOHN Non-Admin Reason: held by physician Ceftriaxone Sodium 1 gm/ (Sodium Chloride) 50 mls @ 100 mls/hr IV Q24H [facility] Last Infusion: 10/25/22 08:59 Dose: 0 mls/hr Documented By: RIGOBERTO Losartan Potassium (Losartan Potassium 50 Mg Tablet) 50 mg PO DAILY [facility]; Protocol Last Admin: 10/24/22 10:14 Dose: Not Given Documented By: JOHN Non-Admin Reason: held by physician Nicotine Polacrilex (Nicotine Polacrilex 2 Mg Gum) 2 mg BUCCAL Q2H PRN PRN Reason: Nicotine Cravings Pharmacy Consult (Consult Rx Perform Med Rec) 1 each MISCELLANE ONCE PRN PRN Reason: Consult order Polyethylene Glycol (Polyethylene Glycol 3350 17 Gm Powd.Pack) 17 gm PO DAILY PRN PRN Reason: Constipation Quetiapine Fumarate (Quetiapine Fumarate 200 Mg Tablet) 200 mg PO BEDTIME [facility] Last Admin: 10/24/22 19:52 Dose: 200 mg Documented By: KAVON Sodium Chloride (0.9 % Sodium Chloride Flush 3 Ml Syringe) 3 ml IVFLUSH QSHIFT [facility] Last Admin: 10/25/22 08:10 Dose: 3 ml Documented By: RIGOBERTO Vitamin D (Cholecalciferol (Vitamin D3) 25 Mcg Tablet) 25 mcg PO DAILY [facility] Last Admin: 10/25/22 08:09 Dose: 25 mcg Documented By: RIGOBERTO Labs 10/24/22 05:45 10/25/22 05:17 Labs: Laboratory Results - last 24 hr 10/24/22 10/24/22 10/25/22 11:30 11:30 05:17 Anion Gap 12 Estim Creat Clear Calc 69.6 Estimated GFR 51 Random Glucose 112 D Calcium 8.5 Ur Random Sodium 116.0 Urine Creatinine 101.05 Microbiology Microbiology Results: Microbiology 10/22/22 08:51 Blood Culture - Preliminary Blood - Venous No growth after 48 hours. 10/22/22 08:40 Blood Culture - Preliminary Blood - Venous No growth after 48 hours. 10/22/22 Unknown Urine Culture - Final Urine clean catch - Urine butler top Escherichia coli Assessment and Plan (1) Cocaine use: Status: Acute (2) Overdose: Status: Acute (3) Mental status alteration: Status: Acute (4) Acute UTI: Status: Acute (5) Deep vein thrombosis (DVT) of distal vein of left lower extremity: Status: Acute Plan 57-year-old male with history of chronic back pain, left footdrop, GERD, hypertension, obstructive sleep apnea compliant with CPAP, polysubstance abuser, and current everyday smoker admitted for cocaine overdose, UTI with ANTOINE. toxic metabolic encephalopathy due to Cocaine overdose -Initially hyperosmolar with toxic encephalopathy following cocaine OD. Now awake, alert, oriented x 4 -Continue CPAP only at bedtime -HD -Addiction Medicine following, plan for eventual discharge to detox ANTOINE- related to cocaine use/ACEI/Diuretic use improving, monitor bmp Acute UTI -UC with ecoli sensitive to ceftriaxone -Continue IV ceftriaxone (D4) DVT LLE -Venous duplex with DVT in duplicate left popliteal vein -No hx GI bleed, intracranial hemorrhage, known bleeding disorder -initiate Eliquis 10 mg b.i.d. x7 days, then 5 mg b.i.d. 3 month duration HTN- reasonably controlled -holding hydrochlorothiazide, losartan due to ANTOINE chronic low back pain -Resume tramadol and gabapentin as pt more awake depression/mood disorder -continue escitalopram.? Resume Seroquel bedtime cigarette smoker -continue NRT ROSEMARY -continue cpap Severe obesity, BMI >38 -Weight loss efforts encouraged DVT prophylaxis- eliquis Full code reason for continued hospitalization:close monitoring for ANTOINE Time Spent With Patient Time: Total time managing care of this patient today ____ minutes. Quality Stroke Does the patient have a stroke diagnosis?: No VTE Prior VTE?: No VTE Risk Level:: Medical - moderate - high VTE Device Contraindication: Treatment Not Indicated VTE Drug Contraindication: N/A - Med Ordered
[2022-10-25] MEDS: Cyanocobalamin (Vitamin B-12) 1,000 MCG/ML VIAL 1000 MCG IM (12:20)
--- NOTE | 2022-10-25 14:17 | PC.RT ---
pt refusing to wear cpap. he does not wear it at home so he will not here. Pt was only placed on it in the ED after his OD of binging on crack ocaine after 25 rocks. ABG perfectly normal.Will not place on cpap per pt. request
[2022-10-25 15:08] VITALS: BP 144/71; PULSE 87; RESP 18; TEMP 37.1; O2SAT 95
[2022-10-25 15:31] LABS: Total Protein Urine Random 12 mg/dL (<12)
[2022-10-25 19:23] VITALS: BP 146/68; PULSE 89; RESP 18; TEMP 37.2; O2SAT 92
[2022-10-25] MEDS: QUEtiapine Fumarate 200 MG TABLET PO (20:08)
[2022-10-25] MEDS: methADONE HCl 20 MG/2 ML ORAL.CONC 10 MG PO (20:09)
[2022-10-26 03:13] VITALS: BP 126/77; PULSE 82; RESP 18; TEMP 35.9; O2SAT 94
[2022-10-26 06:16] LABS: Hematocrit 36.8 % (42.0-52.0); Hemoglobin 11.6 g/dl (14.0-18.0); Mean Corpuscular HGB Conc 31.5 g/dl (31.0-36.0); Mean Corpuscular Hemoglobin 31.8 pg (27.0-33.0); Mean Corpuscular Volume 100.8 fL (80.0-98.0); Mean Platelet Volume 8.6 fL (9.4-12.4); Platelet Count 211 X10*3/uL (160-400); Red Blood Count 3.65 X10*6/uL (4.60-5.80); Red Cell Distribution Width 14.5 % (11.0-16.0); White Blood Count 7.2 X10*3/uL (4.8-10.8)
[2022-10-26 06:54] LABS: Anion Gap 10 (12-20); Blood Urea Nitrogen 19 mg/dL (9-16); Calcium 8.5 mg/dL (8.4-10.2); Carbon Dioxide 29 mmol/L (22-29); Chloride 104 mmol/L (96-108); Creatinine Clr Calc Pharmacy 74.8; Estimated Glomerular Filt Rate 55; Glucose Fasting 99 mg/dL (60-99); Sodium 139 mmol/L (135-145)
[2022-10-26 07:30] VITALS: BP 132/64; PULSE 75; RESP 16; TEMP 36.6; O2SAT 96
[2022-10-26] MEDS: Gabapentin 400 MG CAPSULE 800 MG PO (07:50)
[2022-10-26] MEDS: cefTRIAXone sodium 1 GM in 0.9 % Sodium Chloride 50 ML IV (07:50)
[2022-10-26] MEDS: Apixaban 5 MG TABLET 10 MG PO (07:51)
[2022-10-26] MEDS: methADONE HCl 20 MG/2 ML ORAL.CONC 10 MG PO (07:51)
[2022-10-26] MEDS: Escitalopram Oxalate 10 MG TABLET PO (07:51)
[2022-10-26] MEDS: 0.9 % Sodium Chloride Flush 3 ML SYRINGE IVFLUSH ×2 (07:51→14:26)
[2022-10-26] MEDS: Cyanocobalamin (Vitamin B-12) 1,000 MCG TABLET 1000 MCG PO (07:51)
[2022-10-26] MEDS: Cholecalciferol (Vitamin D3) 25 MCG TABLET PO (07:51)
--- NOTE | 2022-10-26 13:01 | PM.PNNEP ---
Subjective Subjective Date of Service: 10/26/22 Interval history: Events noted. All recent data reviewed Physical Exam Vital Signs: Vital Signs: Last Vital Signs Temp 97.9 F 10/26/22 07:30 Pulse 75 10/26/22 07:30 Resp 16 10/26/22 07:30 BP 132/64 10/26/22 07:30 Pulse Ox 96 10/26/22 07:30 O2 Del Method 10/26/22 07:30 O2 Flow Rate 3 10/22/22 18:36 FiO2 43 10/22/22 06:11 Oxygen Flow Rate 2 10/22/22 04:02 BMI result Body Mass Index 38.8 Const: General: no acute distress Eyes: EOM: EOMs intact bilaterally Neck: Neck: Yes supple Resp: Auscultation: diminished lung sounds Cardio: Rate: regular rate GI: Palpation (GI): Soft to palpation Neuro: General: moves all extremities Objective Data Labs 10/26/22 05:38 10/26/22 05:38 Labs: Laboratory Results - last 24 hr 10/24/22 10/24/22 10/26/22 11:30 11:30 05:38 WBC 7.2 RBC 3.65 L Hgb 11.6 L Hct 36.8 L MCV 100.8 H MCH 31.8 MCHC 31.5 RDW 14.5 Plt Count 211 MPV 8.6 L Absolute Nucleated RBC 0.000 Nucleated RBC % (auto) 0.0 Sodium Potassium Chloride Carbon Dioxide Anion Gap BUN Creatinine Cancelled Estim Creat Clear Calc Estimated GFR Fasting Glucose Calcium U Random Total Protein 12 Ur 24 Hour Volume Cancelled Ur Creatinine mg/dL Cancelled Ur Creatinine 24 Hour Cancelled Creat Clearance 24 Hr Cancelled 10/26/22 05:38 WBC RBC Hgb Hct MCV MCH MCHC RDW Plt Count MPV Absolute Nucleated RBC Nucleated RBC % (auto) Sodium 139 Potassium 4.0 Chloride 104 Carbon Dioxide 29 Anion Gap 10 L BUN 19 H Creatinine 1.33 Estim Creat Clear Calc 74.8 Estimated GFR 55 Fasting Glucose 99 Calcium 8.5 U Random Total Protein Ur 24 Hour Volume Ur Creatinine mg/dL Ur Creatinine 24 Hour Creat Clearance 24 Hr Microbiology Microbiology Results: Microbiology 10/22/22 08:51 Blood - Venous Blood Culture - Preliminary No growth after 48 hours. 10/22/22 08:40 Blood - Venous Blood Culture - Preliminary No growth after 48 hours. 10/22/22 Unknown Urine clean catch - Urine butler top Urine Culture - Final Escherichia coli Procedures Date of Service Date of Service: 10/26/22 Assessment & Plan Assessment and plan (1) Acute kidney injury: Status: Acute Assessment and Plan: Acute Kidney injury due to tubular injury; Renal fn better Had cocaine overdose which has caused severe renal vasoconstriction Unlikely to have cocaine associated vasculitis no ACEI/ARB/NSAID's/Diuretics Was given IV fluids/ supportive care Shall F/U in the office when D/Charles Time Spent With Patient Time: Total time managing care of this patient today ____ minutes. Progress Note: Quality Stroke Does the patient have a stroke diagnosis?: No
[2022-10-26] MEDS: Gabapentin 300 MG CAPSULE 600 MG PO (14:26)
--- NOTE | 2022-10-26 14:41 | MHC.RECOVRN ---
Pt accepted to [facility] for 4:30PM admission. Will be transported via Lyft.
--- NOTE | 2022-10-26 14:57 | P.DS_ITS ---
DS: Providers Provider Date of Service: 10/26/22 Date of admission: 10/22/22 15:59 Primary care physician: Francine Thornton MD Consults: 10/22/22 16:33 Addiction Medicine Routine Consulting Provider: Addiction Covering Reason for consultation: cocaine abuse/overdose 10/23/22 16:55 Consult to Care Team Routine Comment: Reason for consultation: cocaine abuse/OD, desires detox 10/24/22 07:59 Consult to Nephrology Routine Consulting Provider: Cintia Martinez Reason for consultation: earle DS: Diagnosis Discharge Diagnosis (1) Acute kidney injury: Status: Acute (2) Cocaine use disorder: Status: Acute (3) Acute UTI: Status: Acute (4) Deep vein thrombosis (DVT) of distal vein of left lower extremity: Status: Acute (5) Overdose: Status: Acute (6) Mental status alteration: Status: Acute (7) Toxic metabolic encephalopathy: Status: Acute DS: Summary Hospital Course Hospital Course: Admission note HPI 57-year-old male with history of chronic back pain, left footdrop, GERD, hypertension, obstructive sleep apnea compliant with CPAP, polysubstance abuser, and current everyday smoker presented to the ED earlier today after his family called EMS upon finding him sleeping/snoring and unresponsive.? EMS administered 4 mg Narcan at which time patient became physically aggressive and please had become a vault.? On exam, the patient is deeply somnolent but arousable to painful stimuli and his brother is at bedside assisting with history.? Per ED staff, the patient did wake and stated he had been bingeing on crack cocaine, us ing 20 rocks per day and is homeless.? He has also not been sleeping over the last few days secondary to the cocaine use.? Of note, his brother states that the patient was recently hospitalized in a detox facility for 3 months and review of previous record shows recent hospitalization at [facility] with discharge in 09/19 for COVID-19 and left lower lobe pneumonia.? He was also hospitalized at [facility] with discharge on 08/04 for pyelonephritis. In the ED, VSS. Pupils noted to be pinpoint in ED and given additional dose 4mg narcan given somnolence with little improvement. Pt placed on CPAP given deep somnolence with ABG revealing pH 7.45, pCO2 35.4, PO2 125, oximetry 99%.? No leukocytosis.? Creatinine 1.59, BUN 16 (baseline creatinine 1.07).? Electrolyte levels normal.? Lactic acid 1.1.? Troponin 8.5.? Urinalysis with 3+ leukocytes, negative nitrites, 1+ blood, 4+ bacteria.? U tox positive for cocaine and marijuana.? Head CT without any acute intracranial pathology.? CXR with hypoexpanded lungs and left perihilar infiltrate/atelectasis.? Patient denies any fevers, chills, abdominal pain, nausea, vomiting, cough, dysuria, hematuria, shortness of breath, chest pain.? Does endorse increased urinary frequency.? In the ED, treated with 2 L IV bolus fluids, 1 g ceftriaxone, 500 mg azithromycin, and 4 mg Narcan as above. Hospital course The patient was admitted to the hospital for evidence of cocaine over does associated with acute kidney injury and urine infection. Placed on CPAP for respiratory support with significant improvement as the risk of HYDROGEN CELL TENDER suppressant were held. Evaluated by Addiction Medicine team who started him on methadone. Plan to go to inpatient detox facility. Noted to have acute kidney injury with creatinine of 1.6 from baseline of around 1. Received IV fluid with holding nephrotoxic medications. Seen by Nephrology team. Kidney function improved during the hospital stay and will continue to be monitored at discharge by nephrology team. Noticed to have urine infection at time of presentation. Urine cultures grew sensitive E coli. Received IV ceftriaxone. To be discharged on Ceftin to finish total of 10 days of treatment. Complained of left leg pain. Ultrasound was positive for DVT. Started on full- dose Eliquis with a plan for anticoagulation for total of 6 months. To be followed by his PCP to decide on the length of treatment. continue antibiotic as prescribed Addiction team will follow you at a detox facility To follow-up with Nephrology as outpatient Continue Eliquis as prescribed, to follow-up with PCP to decide the best time to stop it We advise you complete abstinence from drugs Time Spent with Patient Time attestation: Total time managing care of this patient today ____ minutes. Discharge coordination time: Greater than 30 minutes Quality: Safe Use of Opioids Does Pt have an Active Cancer Diagnosis on the Problem List?: No Quality: Stroke Does the patient have a stroke diagnosis?: No Physical Exam Vital Signs: Vital Signs: Last Vital Signs Temp 97.9 F 10/26/22 07:30 Pulse 75 10/26/22 07:30 Resp 16 10/26/22 07:30 BP 132/64 10/26/22 07:30 Pulse Ox 96 10/26/22 07:30 O2 Del Method 10/26/22 07:30 O2 Flow Rate 3 10/22/22 18:36 FiO2 43 10/22/22 06:11 Oxygen Flow Rate 2 10/22/22 04:02 BMI result Body Mass Index 38.8 Const: Other: Constitutional : Awake, interactive, not in distress Neck : Normal inspection, Supple Cardiovascular : RRR, no JVP, no lower extremity edema Respiratory : good bilateral air entry, no crackles, wheezes or rhonchi Gastrointestinal: soft, lax, Normal bowel sounds, Non tender Skin : Warm, Dry Neurological : Alert & oriented x3, No focal deficit DS: Data Data Completed and Pending Labs on day of discharge: Laboratory Results - last 24 hr 10/24/22 10/24/22 10/26/22 11:30 11:30 05:38 WBC 7.2 RBC 3.65 L Hgb 11.6 L Hct 36.8 L MCV 100.8 H MCH 31.8 MCHC 31.5 RDW 14.5 Plt Count 211 MPV 8.6 L Absolute Nucleated RBC 0.000 Nucleated RBC % (auto) 0.0 Sodium Potassium Chloride Carbon Dioxide Anion Gap BUN Creatinine Cancelled Estim Creat Clear Calc Estimated GFR Fasting Glucose Calcium U Random Total Protein 12 Ur 24 Hour Volume Cancelled Ur Creatinine mg/dL Cancelled Ur Creatinine 24 Hour Cancelled Creat Clearance 24 Hr Cancelled 10/26/22 05:38 WBC RBC Hgb Hct MCV MCH MCHC RDW Plt Count MPV Absolute Nucleated RBC Nucleated RBC % (auto) Sodium 139 Potassium 4.0 Chloride 104 Carbon Dioxide 29 Anion Gap 10 L BUN 19 H Creatinine 1.33 Estim Creat Clear Calc 74.8 Estimated GFR 55 Fasting Glucose 99 Calcium 8.5 U Random Total Protein Ur 24 Hour Volume Ur Creatinine mg/dL Ur Creatinine 24 Hour Creat Clearance 24 Hr Preliminary micro results at discharge 10/22/22 08:51 Blood Culture - Preliminary Blood - Venous No growth after 48 hours. 10/22/22 08:40 Blood Culture - Preliminary Blood - Venous No growth after 48 hours. Imaging Venous US: Radiologist's impression: ITS Impressions Head CT 10/22/22 09:35 IMPRESSION: No CT evidence for acute intracranial pathology. Chest X-Ray 10/22/22 09:55 IMPRESSION: Hypoexpanded lungs. Suspect left parahilar infiltrate/atelectasis. Venous Duplex 10/24/22 10:20 IMPRESSION: There is noncompressible deep venous thrombus within what appears to represent a duplicated popliteal vein. Otherwise, the visualized veins of the extremity are normal. The critical test result was discussed with SHANNA Ayon, at 11:45 AM on 10/24/2022 and it was ascertained that the content and the importance of the findings was understood at the time of the direct communication. Discharge Plan Discharge Anticipated Discharge Date/Time: 10/26/22 14:48 Patient Disposition: [facility] Discharge Diagnosis: Overdose, narcotic abuse Deep vein thrombosis Urine infection Acute kidney injury Referrals: Francine Nolen MD [Primary Care Provider] - 1 Week Discharge Medications: New methadone [Methadose] 10 mg/mL Concentrate 10 mg PO BID 1 Days Qty: 2 0RF Rx Instructions: Partial Fill upon patient request. Eliquis 5 mg Tablet 10 mg PO BID 4 Days Qty: 16 0RF cefuroxime axetil 500 mg tablet 500 mg PO BID Qty: 10 0RF Eliquis 5 mg tablet 5 mg PO BID Qty: 120 2RF Continued (DME) left ankle brace large See Rx Instructions .Route .MEDSUPPLY Qty: 1 0RF Rx Instructions: As directed (DME) showerhead hand held See Rx Instructions .Route .MEDSUPPLY Qty: 1 0RF Rx Instructions: As directed (DME) rollator heavy duty heavy duty See Rx Instructions .Route .MEDSUPPLY Qty: 1 0RF Rx Instructions: As directed (DME) wheelchair See Rx Instructions .Route .MEDSUPPLY Qty: 1 0RF Rx Instructions: Patient needs to rest his left foot (DME) Ultra-Light Rollator Misc See Rx Instructions .ROUTE .MEDSUPPLY Qty: 1 0RF Rx Instructions: As directed cholecalciferol (vitamin D3) 25 mcg (1,000 unit) tablet 25 mcg PO DAILY 90 Days Qty: 90 3RF gabapentin 800 mg tablet 800 mg PO TID Qty: 90 3RF tramadol 50 mg tablet 50 mg PO Q8H PRN (Reason: pain) 30 Days Qty: 90 0RF losartan 50 mg tablet 50 mg PO DAILY 90 Days Qty: 90 3RF bisacodyl [Dulcolax (bisacodyl)] 5 mg tablet,delayed release (DR/EC) 10 mg PO BEDTIME PRN (Reason: constipation) Qty: 60 0RF quetiapine 200 mg tablet 1 tab PO BEDTIME nicotine (polacrilex) 4 mg gum 1 ea PO Q2H PRN (Reason: Nicotine Cravings) escitalopram oxalate 10 mg tablet 1 tab PO DAILY cyclobenzaprine 10 mg tablet 10 mg PO TID PRN (Reason: Muscle Spasm) hydrochlorothiazide 25 mg tablet 25 mg PO DAILY polyethylene glycol 3350 [Miralax] 17 gram/dose powder 17 g PO DAILY PRN (Reason: Constipation) Discontinued ibuprofen 600 mg tablet 1 tab PO Q6H PRN (Reason: Pain (Scale Score 1-3)) Discharge Orders: Discharge Order (Routine); Ordered 10/26/22 Ordered By: Cecile Gerard Diet: Advance to usual diet Activity on Discharge: As tolerated Stand Alone Forms: Patient Portal Discharge page Care Plan Goals: Read below Health Concerns: Read below Plan of Treatment: Read below Assessment: You were admitted to the hospital for evaluation of cocaine overdose. Found to be intoxicated. Treated with IV fluid with improvement of your mind. Evaluated by Addiction Medicine team who started on methadone with a plan to discharge to a detox facility. Noted to have acute kidney injury that was evaluated by kidney specialist as nephrotoxic medications were held with improvement of your kidney function. To follow up with Nephrology as outpatient. Noted to have urine infection with bacteria growing called E coli. Treated with IV antibiotics. To continue Ceftin at time of discharge. An ultrasound of your left leg showed an evidence of deep vein thrombus. Started on Eliquis 10 mg twice daily for the next few days then finish 5 mg twice daily for total of 6 months of treatment. continue antibiotic as prescribed Addiction team will follow you at a detox facility To follow-up with Nephrology as outpatient Continue Eliquis as prescribed, to follow-up with PCP to decide the best time to stop it We advise you complete abstinence from drugs
--- NOTE | 2022-10-26 15:21 | MHC.CM.PN ---
PATIENT DC TO [facility] RN AWARE OF PLAN. LYFT TRANSPORT SECURED
== END 2022-10-26 15:50 | DRG 917 ==
LOC: HO.ED 07:05 → HO.EDOVER 16:31 → HO.IMC 17:25 → HO.S3 10-23 16:11
PROVIDERS: Internal Medicine; Student in an Organized Health Care Education/Training Program; Admitting Provider Physician Assistant; Emergency Provider Emergency Medicine Emergency Medical Services; PCP Internal Medicine; Visit Provider Student in an Organized Health Care Education/Training Program
DX: T40.5X1A Poisoning by cocaine, accidental (unintentional), initial encounter (principal); G92.8 Other toxic encephalopathy; F11.20 Opioid dependence, uncomplicated; N39.0 Urinary tract infection, site not specified; I82.432 Acute embolism and thrombosis of left popliteal vein; N17.9 Acute kidney failure, unspecified; G89.29 Other chronic pain; E66.01 Morbid (severe) obesity due to excess calories; B96.20 Unspecified Escherichia coli [E. coli] as the cause of diseases classified elsewhere; F32.A Depression, unspecified; M54.50 Low back pain, unspecified; I11.0 Hypertensive heart disease with heart failure; F14.90 Cocaine use, unspecified, uncomplicated; K21.9 Gastro-esophageal reflux disease without esophagitis; G47.33 Obstructive sleep apnea (adult) (pediatric); F17.210 Nicotine dependence, cigarettes, uncomplicated; Z71.6 Tobacco abuse counseling; Z20.822 Contact with and (suspected) exposure to COVID-19; Z79.899 Other long term (current) drug therapy; Z68.38 Body mass index [BMI] 38.0-38.9, adult
CPT/HCPCS: 36415; 70450; 71045; 80048; 80053; 80307; 81001; 82077; 82607; 82746; 82803; 83605; 84156; 84300; 84484; 85025; 85027; 87040; 87086; 87088; 87186; 87502; 87635; 93005; 93971; 94660; 99285; C1758; J0456; J0696; J1650

== ENCOUNTER 2023-01-10 04:20 | Emergency (ER) | payer OTHER, SELFPAY ==
[2023-01-10 04:27] VITALS: BP 133/101; BP 144/84; PULSE 93; PULSE 98; RESP 20; TEMP 36.8; O2SAT 94; O2SAT 95; BMI 41.8
[2023-01-10 04:33] VITALS: BP 144/84; PULSE 93; RESP 20; TEMP 36.8; O2SAT 94
--- NOTE | 2023-01-10 04:45 | MHC.EDTECH ---
PT received by Ems soaking wet. PT 1x assisted with removing wet clothing and changing over in hospital gown. PT given warm blankets and urinal placed bedside. PT clothing brought to pod washer to be washed. Sneakers with brace and jacket bedside.
--- NOTE | 2023-01-10 05:46 | ED.GENADULT ---
HPI - General Adult General Chief complaint: Back Pain/Injury Stated complaint: BILAT LEG PAIN Time Seen by Provider: 01/10/23 04:45 Source: patient Mode of arrival: EMS Limitations: no limitations History of Present Illness HPI narrative: Patient morbidly obese with right footdrop homeless brought by ambulance as it is cold outside and patient feel chronic pain in the low back pain no fall or trauma. No fever no cough no shortness of breath no abdominal pain/ nausea vomiting Related Data Home Medications Medication Instructions Recorded Confirmed cyclobenzaprine 10 mg tablet 10 mg PO TID PRN Muscle Spasm 10/22/22 01/02/23 escitalopram oxalate 10 mg tablet 1 tab PO DAILY 10/22/22 01/02/23 polyethylene glycol 3350 17 17 g PO DAILY PRN Constipation 10/22/22 01/02/23 gram/dose oral powder (Miralax) Previous Rx's Medication Instructions Recorded left ankle brace #1 ea 06/29/21 showerhead hand held #1 ea 12/08/21 rollator heavy duty #1 ea 01/10/22 wheelchair #1 ea 01/10/22 walker (Ultra-Light Rollator misc) #1 ea 02/07/22 cefuroxime axetil 500 mg tablet 500 mg PO BID #10 tabs 10/26/22 bisacodyl 5 mg tablet,delayed 10 mg PO BEDTIME PRN constipation 11/29/22 release (Dulcolax (bisacodyl)) #60 tabs cholecalciferol (vitamin D3) 25 25 mcg PO DAILY 90 days #90 tabs 11/29/22 mcg (1,000 unit) tablet hydrochlorothiazide 25 mg tablet 25 mg PO DAILY 90 days #90 tabs 11/29/22 losartan 50 mg tablet 50 mg PO DAILY 90 days #90 tabs 11/29/22 pull ups #120 ea 12/02/22 wipes #500 ea 12/02/22 apixaban 5 mg tablet (Eliquis) 5 mg PO BID #120 tabs 12/12/22 quetiapine 200 mg tablet 200 mg PO BEDTIME 30 days #30 tabs 12/12/22 fluticasone propionate 50 1 spray intranasal DAILY nasal 01/02/23 mcg/actuation nasal congestion #16 grams spray,suspension (Allergy Relief (fluticasone)) Allergies Allergy/AdvReac Type Severity Reaction Status Date / Time hydrocodone [HYDROCODONE] Allergy Intermediate ITCHING Verified 01/02/23 10:58 oxycodone Allergy Intermediate rash Verified 01/02/23 10:58 Review of Systems Review of Systems: Yes all other systems are reviewed and are negative [facility] Past Medical History Medical History Cellulitis of right middle finger Chronic back pain Class 2 obesity with body mass index (BMI) of 37.0 to 37.9 in adult Cocaine use Cocaine use disorder Foot drop, left foot Foreign body (FB) in soft tissue GERD (gastroesophageal reflux disease) Hypertension ROSEMARY (obstructive sleep apnea) Smoker Surgical History History of back surgery History of gastrectomy History of spinal surgery Family History Family History Father Stroke CVD (cardiovascular disease) Mother Palpitation Brother Asthma Brother No problems noted. Brother No problems noted. Sister No problems noted. Social History Social History Household Members: None Housing: Homeless Do you presently have visiting nurse or other home services: No Alcohol intake: current Alcohol intake frequency: 3 or more drinks per day Alcohol type: beer and hard liquor Patient Tobacco Use Status: Current everyday Tobacco user Tobacco use type: Cigarette Cigarettes Per Day: 5 Smoked in Last 30 Days: Yes e-Cigarette/Vaping Use: Never Used Second Hand Smoke Exposure: No Use of substances other than those prescribed or required for medical reasons: Yes Substance Use Type: Crack/Cocaine Substance Use Frequency: Daily Advance Directives: No service: No Current occupational status: disabled Current occupation: rt hand Physical Exam ED Vital Signs: Vital Signs - 24 hr 01/10/23 04:27 01/10/23 04:33 01/10/23 05:48 Temperature 98.2 F 98.2 F 98 F Pulse Rate 93 93 88 Respiratory Rate 20 20 14 Blood Pressure 144/84 H 144/84 H 121/81 Pulse Oximetry 94 94 93 Oxygen Delivery Method Room Air Room Air Room Air BMI result Body Mass Index 41.8 Appearance: Alert. Oriented X3. No acute distress. Eyes: PERRLA, No Nystagmus ENT: Pharynx normal. Oral Mucosa moist Neck: Normal inspection. Neck supple. CVS: Normal heart rate and rhythm. Pulses normal. Respiratory: No respiratory distress. Equal air entry bilateral, no wheezing/rales/rhonchi Abdomen: Soft and nontender. Bowel sounds are present, no mass palpable, no CVA tenderness Skin: Skin warm and dry. Normal skin color. Normal skin turgor. Extremities: No lower extremity edema. No calf tenderness right footdrop chronic, closely spaced with bilateral Neuro: Oriented X 3. No sensory deficit.No cerebellar signs , cranial nerves II-XII intact Medications Administered Discontinued Medications Generic Name Dose Route Start Last Admin Trade Name Freq PRN Reason Stop Dose Admin Acetaminophen 975 mg 01/10/23 06:27 01/10/23 06:32 Acetaminophen 325 Mg Tablet PO 01/10/23 06:28 975 mg ONCE ONE Administration Discharge Plan Discharge Clinical Impression: Foot drop, left foot, Homeless Patient Disposition: Home, Self-Care Instructions: Foot Drop (ED), Chronic Back Pain (DC) Additional Instructions: Continue taking medication and follow-up with social studies teacher Prescriptions: No Action (DME) left ankle brace large See Rx Instructions .Route .MEDSUPPLY Qty: 1 0RF Rx Instructions: As directed (DME) showerhead hand held See Rx Instructions .Route .MEDSUPPLY Qty: 1 0RF Rx Instructions: As directed (DME) rollator heavy duty heavy duty See Rx Instructions .Route .MEDSUPPLY Qty: 1 0RF Rx Instructions: As directed (DME) wheelchair See Rx Instructions .Route .MEDSUPPLY Qty: 1 0RF Rx Instructions: Patient needs to rest his left foot (DME) Ultra-Light Rollator Misc See Rx Instructions .ROUTE .MEDSUPPLY Qty: 1 0RF Rx Instructions: As directed bisacodyl [Dulcolax (bisacodyl)] 5 mg tablet,delayed release (DR/EC) 10 mg PO BEDTIME PRN (Reason: constipation) Qty: 60 0RF cholecalciferol (vitamin D3) 25 mcg (1,000 unit) tablet 25 mcg PO DAILY 90 Days Qty: 90 3RF hydrochlorothiazide 25 mg tablet 25 mg PO DAILY 90 Days Qty: 90 1RF losartan 50 mg tablet 50 mg PO DAILY 90 Days Qty: 90 3RF (DME) pull ups XL See Rx Instructions .Route .MEDSUPPLY Qty: 120 3RF Rx Instructions: four times per day (DME) wipes See Rx Instructions .Route .MEDSUPPLY Qty: 500 0RF Rx Instructions: As directed Eliquis 5 mg tablet 5 mg PO BID Qty: 120 2RF quetiapine 200 mg tablet 200 mg PO BEDTIME 30 Days Qty: 30 0RF escitalopram oxalate 10 mg tablet 1 tab PO DAILY cyclobenzaprine 10 mg tablet 10 mg PO TID PRN (Reason: Muscle Spasm) polyethylene glycol 3350 [Miralax] 17 gram/dose powder 17 g PO DAILY PRN (Reason: Constipation) cefuroxime axetil 500 mg tablet 500 mg PO BID Qty: 10 0RF fluticasone propionate [Allergy Relief (fluticasone)] 50 mcg/actuation spray,suspension 1 spray intranasal DAILY Qty: 16 0RF Rx Instructions: administer into each nostril
[2023-01-10 05:48] VITALS: BP 121/81; PULSE 88; RESP 14; TEMP 36.6; O2SAT 93
--- NOTE | 2023-01-10 06:02 | MHC.EDTECH ---
PT clothes washed and dried and placed bedside in labeled belongings bag
[2023-01-10] MEDS: Acetaminophen 325 MG TABLET 975 MG PO (06:32)
== END 2023-01-10 07:46 | disposition home or self-care (01) ==
PROVIDERS: Emergency Provider Internal Medicine
DX: M21.372 Foot drop, left foot (principal); Z59.00 Homelessness unspecified; M54.50 Low back pain, unspecified; I10 Essential (primary) hypertension; F17.210 Nicotine dependence, cigarettes, uncomplicated; E66.9 Obesity, unspecified; Z68.41 Body mass index [BMI] 40.0-44.9, adult; Z79.01 Long term (current) use of anticoagulants; Z79.899 Other long term (current) drug therapy
CPT/HCPCS: 99283; 99284

== ENCOUNTER → 2023-04-14 10:37 | Outpatient (BNVA) | payer OTHER, SELFPAY | PROVIDERS: PCP Internal Medicine; Visit Provider Registered Nurse Emergency ==

== ENCOUNTER 2023-04-28 04:38 | Emergency (ER) | payer OTHER, SELFPAY ==
--- NOTE | ~2023-04-28 | XR_ITS ---
EXAMINATION: XR CHEST CLINICAL INFORMATION: Shortness of breath COMPARISON: 10/22/2022 TECHNIQUE: Frontal view of the chest was obtained. FINDINGS: EKG wires overlie the chest. Lungs remain hypoinflated, suboptimally evaluated. There appears to be linear hazy opacity of likely atelectasis at the left lateral base. No overt airspace disease. No pulmonary edema, pleural effusion or pneumothorax. Cardiac silhouette appears to be in the normal size range. There is mild levoscoliosis of the cervical and upper thoracic spine. No acute skeletal abnormality. XR/XR chest 1V IMPRESSION: * Lungs remain hypoinflated and suboptimally evaluated. * There appears to be mild atelectasis at the left lateral base. No overt consolidation.
[2023-04-28 04:43] VITALS: BP 107/76; BP 110/70; PULSE 80; RESP 22; TEMP 36.9; O2SAT 95; BMI 44.7
--- NOTE | 2023-04-28 04:45 | ECG_ITS ---
Test Reason : SOB Blood Pressure : / mmHG Vent. Rate : 083 BPM Atrial Rate : 083 BPM P-R Int : 206 ms QRS Dur : 098 ms QT Int : 366 ms P-R-T Axes : 039 029 040 degrees QTc Int : 430 ms Sinus rhythm Otherwise normal ECG When compared with ECG of 22-OCT-2022 09:41, Criteria for Septal infarct are no longer Present Referred By: Lara Latif Electronically Signed By:MAIRA RUGGIERO MD
--- NOTE | 2023-04-28 05:00 | PC.NURSE ---
Pt BIBA, somnolent, awakens with tactile stimuli, reports increase SOB x 4 hours prior to arrival after smoking crack . RR 22, O2 sat 95% on RA, lung sounds clear. Pt clothing wet, incontinent of stool, changed over to hospital attire.
--- NOTE | 2023-04-28 05:38 | MHC.EDTECH ---
Patient came in by ambulance ,patient was changed into hospital attire,pt was incot. and covered in stool. Patient was washed with soap and water,this tech applied some cream to buttocks. Patient told this tech and RN Vicenta to throw out his shorts, this tech did offer to wash them but there was too much stool pt stated. Patient was placed on the rn cardiac rehab,EKG and labs done. Belongings list done and pt's stuff is in deacon room,sweatshirt and shirt and socks are being washed at this time due to being wet.
[2023-04-28 05:40] LABS: Basophils Percent Auto 0.4 % (0-2); Eosinophils Absolute Auto 0.3 X10*3/uL (0.0-0.4); Eosinophils Percent Auto 2.4 % (0-4); Hematocrit 42.7 % (42.0-52.0); Hemoglobin 13.6 g/dl (14.0-18.0); Imm Gran Abs Auto 0.07 X10*3/uL (0.00-0.03); Imm Gran Pct Auto 0.7 % (0.0-0.4); Lymphocytes Absolute Auto 1.9 X10*3/uL (1.2-4.9); Lymphocytes Percent Auto 18.2 % (20-40); MANUAL DIFF FLAG NO; Mean Corpuscular HGB Conc 31.9 g/dl (31.0-36.0); Mean Corpuscular Hemoglobin 30.8 pg (27.0-33.0); Mean Corpuscular Volume 96.6 fL (80.0-98.0); Mean Platelet Volume 8.9 fL (9.4-12.4); Monocytes Absolute Auto 0.6 X10*3/uL (0.1-1.2); Monocytes Percent Auto 5.5 % (2-11); Neutrophils Absolute Auto 7.5 x10*3/uL (2.0-8.3); Neutrophils Percent Auto 72.8 % (45-73); Platelet Count 179 X10*3/uL (160-400); Red Blood Count 4.42 X10*6/uL (4.60-5.80); Red Cell Distribution Width 13.5 % (11.0-16.0); White Blood Count 10.3 X10*3/uL (4.8-10.8)
[2023-04-28 05:55] LABS: Troponin-I High Sensitivity 3.7 ng/L (<3.5-35.0)
[2023-04-28 06:02] LABS: Alanine Aminotransferase 17 U/L (0-40); Albumin Level 3.6 g/dL (3.5-5.0); Alkaline Phosphatase 80 U/L (39-117); Aspartate Amino Transferase 19 U/L (5-37); Bilirubin Total 0.4 mg/dL (0.0-1.0); Blood Urea Nitrogen 11 mg/dL (9-16); Calcium 9.1 mg/dL (8.4-10.2); Chloride 104 mmol/L (96-108); Creatinine Clr Calc Pharmacy 91.7; Estimated Glomerular Filt Rate > 60; Glucose Random 113 mg/dL (60-115); Sodium 138 mmol/L (135-145); Total Protein 8.1 g/dL (6.5-8.0)
--- NOTE | 2023-04-28 06:24 | ED_ITS ---
HPI - SOB/Dyspnea General Chief Complaint: Dyspnea Stated Complaint: drug use sob Time Seen by Provider: 04/28/23 04:46 Source: patient Mode of arrival: EMS History of Present Illness HPI Narrative: 58-year-old male who called EMS for shortness of breath 4 hours after smoking crack. Related Data Home Medications Medication Instructions Recorded Confirmed cyclobenzaprine 10 mg tablet 10 mg PO TID PRN Muscle Spasm 10/22/22 01/02/23 escitalopram oxalate 10 mg tablet 1 tab PO DAILY 10/22/22 01/02/23 polyethylene glycol 3350 17 17 g PO DAILY PRN Constipation 10/22/22 01/02/23 gram/dose oral powder (Miralax) Previous Rx's Medication Instructions Recorded left ankle brace #1 ea 06/29/21 showerhead hand held #1 ea 12/08/21 rollator heavy duty #1 ea 01/10/22 wheelchair #1 ea 01/10/22 walker (Ultra-Light Rollator misc) #1 ea 02/07/22 cefuroxime axetil 500 mg tablet 500 mg PO BID #10 tabs 10/26/22 bisacodyl 5 mg tablet,delayed 10 mg PO BEDTIME PRN constipation 11/29/22 release (Dulcolax (bisacodyl)) #60 tabs losartan 50 mg tablet 50 mg PO DAILY 90 days #90 tabs 11/29/22 pull ups #120 ea 12/02/22 wipes #500 ea 12/02/22 fluticasone propionate 50 1 spray intranasal DAILY nasal 03/07/23 mcg/actuation nasal congestion #16 grams spray,suspension (Allergy Relief (fluticasone)) apixaban 5 mg tablet (Eliquis) 5 mg PO BID #120 tabs 03/08/23 cholecalciferol (vitamin D3) 25 25 mcg PO DAILY 90 days #90 tabs 03/08/23 mcg (1,000 unit) tablet hydrochlorothiazide 25 mg tablet 25 mg PO DAILY 90 days #90 tabs 03/08/23 quetiapine 200 mg tablet 200 mg PO BEDTIME 30 days #30 tabs 03/08/23 Allergies Allergy/AdvReac Type Severity Reaction Status Date / Time hydrocodone [HYDROCODONE] Allergy Intermediate ITCHING Verified 04/28/23 05:10 oxycodone Allergy Intermediate rash Verified 04/28/23 05:10 Review of Systems Review of Systems: Pertinent positives and negatives as stated in HPI [facility] Past Medical History Source: nursing notes reviewed Medical History Cellulitis of right middle finger Chronic back pain Class 2 obesity with body mass index (BMI) of 37.0 to 37.9 in adult Cocaine use Cocaine use disorder Foot drop, left foot Foreign body (FB) in soft tissue GERD (gastroesophageal reflux disease) Hypertension ROSEMARY (obstructive sleep apnea) Smoker Surgical History History of back surgery History of gastrectomy History of spinal surgery Family History Family History Father Stroke CVD (cardiovascular disease) Mother Palpitation Brother Asthma Brother No problems noted. Brother No problems noted. Sister No problems noted. Social History Social History Household Members: None Housing: Homeless Do you presently have visiting nurse or other home services: No Alcohol intake: current Alcohol intake frequency: 3 or more drinks per day Alcohol type: beer and hard liquor Patient Tobacco Use Status: Current everyday Tobacco user Tobacco use type: Cigarette Cigarettes Per Day: 5 e-Cigarette/Vaping Use: Never Used Second Hand Smoke Exposure: No Use of substances other than those prescribed or required for medical reasons: Yes Substance Use Type: Crack/Cocaine Advance Directives: No Advance Directives Information Provided: No service: No Current occupational status: disabled Current occupation: rt hand Physical Exam Vital Signs: Vital Signs: Last Vital Signs Temp 98.5 F 04/28/23 04:43 Pulse 80 04/28/23 04:43 Resp 22 H 04/28/23 04:43 BP 107/76 04/28/23 04:43 Pulse Ox 95 04/28/23 04:43 O2 Del Method Room Air 04/28/23 04:43 BMI result Body Mass Index 44.7 VITAL SIGNS: Reviewed. GENERAL: Elevated BMI, Unkempt, covered in feces, in no acute distress. HEAD: Normocephalic/atraumatic EYES: PERRLA, EOMI EARS: Ext canals without abnormality LUNGS: Normal breath sounds. No adventitious sounds or accessory muscle use. SpO2<95> CARDIOVASCULAR: Regular rate and rhythm without noted murmurs, no JVD or lower extremity edema. ABDOMEN: Soft, non-tender, non-distended with bowel sounds. NEUROLOGIC: Alert and oriented x 3. Strength and sensation to light touch were grossly intact x 4. Medical Decision Making Medical Decision Making [facility] Narrative: 58-year-old male who is a known polysubstance user and has use crack cocaine this evening and reports shortness of breath, DDX: Pneumonia, pneumothorax, cardiac ischemia. I reviewed all investigations and there is no leukocytosis, anemia as chronically stable, no left shift and no thrombocytopenia. Chemistry indices are grossly within normal limits, troponin although detectable is not elevated. And EKG is not consistent with ischemic changes. Signed out to Dr Todd: - CXR - Clinical sobriety Differential Diagnosis Differential Diagnoses: The differential diagnosis associated with the presentation includes Please see the discussion above Admission/Observation Consideration of admission/observation: Escalation of care including admission/observation considered Lab Data [facility] Lab Attestation statement: I reviewed the patient's lab results. Please see the discussion above 04/28/23 05:34 04/28/23 05:34 Labs: Lab Results 04/28/23 04/28/23 04/28/23 Range/Units 05:31 05:34 05:34 WBC 10.3 (4.8-10.8) X10*3/uL RBC 4.42 L D (4.60-5.80) X10*6/uL Hgb 13.6 L (14.0-18.0) g/dl Hct 42.7 (42.0-52.0) % MCV 96.6 (80.0-98.0) fL MCH 30.8 (27.0-33.0) pg MCHC 31.9 (31.0-36.0) g/dl RDW 13.5 (11.0-16.0) % Plt Count 179 (160-400) X10*3/uL MPV 8.9 L (9.4-12.4) fL Immature Gran % (Auto) 0.7 H (0.0-0.4) % Neut % (Auto) 72.8 (45-73) % Lymph % (Auto) 18.2 L (20-40) % Ransom % (Auto) 5.5 (2-11) % Eos % (Auto) 2.4 (0-4) % Baso % (Auto) 0.4 (0-2) % Lymph # (Auto) 1.9 (1.2-4.9) X10*3/uL Ransom # (Auto) 0.6 (0.1-1.2) X10*3/uL Eos # (Auto) 0.3 (0.0-0.4) X10*3/uL Baso # (Auto) 0.0 (0.0-0.2) X10*3/uL Abs Immat Gran (auto) 0.07 H (0.00-0.03) X10*3/uL Absolute Neuts (auto) 7.5 (2.0-8.3) x10*3/uL Absolute Nucleated RBC 0.000 (0.0-0.012) X10*3/uL Nucleated RBC % (auto) 0.0 (0.0-0.2) /100WBC Sodium 138 (135-145) mmol/L Potassium 4.0 (3.3-5.1) mmol/L Chloride 104 (96-108) mmol/L Carbon Dioxide 25 (22-29) mmol/L Anion Gap 13 (12-20) BUN 11 (9-16) mg/dL Creatinine 1.23 (0.5-1.4) mg/dL Estim Creat Clear Calc 91.7 Estimated GFR > 60 Random Glucose 113 (60-115) mg/dL Calcium 9.1 D (8.4-10.2) mg/dL Total Bilirubin 0.4 (0.0-1.0) mg/dL AST 19 (5-37) U/L ALT 17 (0-40) U/L Alkaline Phosphatase 80 (39-117) U/L Troponin I High Sens 3.7 (<3.5-35.0) ng/L Total Protein 8.1 H (6.5-8.0) g/dL Albumin 3.6 (3.5-5.0) g/dL Independent Interpretation I performed an independent interpretation of an: EKG Interpretation: Sinus rhythm with occasional PVCs, HR-83, no STEMI, AL/QRS/QTC is within normal limits. Social Determinants Patient?s care significantly limited by Social Determinants of Health including: Inadequate housing and Other Social Determinant of Health Discharge Plan Discharge Clinical Impression: Polysubstance use disorder, Dyspnea Patient Disposition: Still a Patient Prescriptions: No Action (DME) left ankle brace large See Rx Instructions .Route .MEDSUPPLY Qty: 1 0RF Rx Instructions: As directed (DME) showerhead hand held See Rx Instructions .Route .MEDSUPPLY Qty: 1 0RF Rx Instructions: As directed (DME) rollator heavy duty heavy duty See Rx Instructions .Route .MEDSUPPLY Qty: 1 0RF Rx Instructions: As directed (DME) wheelchair See Rx Instructions .Route .MEDSUPPLY Qty: 1 0RF Rx Instructions: Patient needs to rest his left foot (DME) Ultra-Light Rollator Misc See Rx Instructions .ROUTE .MEDSUPPLY Qty: 1 0RF Rx Instructions: As directed bisacodyl [Dulcolax (bisacodyl)] 5 mg tablet,delayed release (DR/EC) 10 mg PO BEDTIME PRN (Reason: constipation) Qty: 60 0RF losartan 50 mg tablet 50 mg PO DAILY 90 Days Qty: 90 3RF (DME) pull ups XL See Rx Instructions .Route .MEDSUPPLY Qty: 120 3RF Rx Instructions: four times per day (DME) wipes See Rx Instructions .Route .MEDSUPPLY Qty: 500 0RF Rx Instructions: As directed fluticasone propionate [Allergy Relief (fluticasone)] 50 mcg/actuation spray,suspension 1 spray intranasal DAILY Qty: 16 0RF Rx Instructions: administer into each nostril Eliquis 5 mg tablet 5 mg PO BID Qty: 120 2RF cholecalciferol (vitamin D3) 25 mcg (1,000 unit) tablet 25 mcg PO DAILY 90 Days Qty: 90 3RF hydrochlorothiazide 25 mg tablet 25 mg PO DAILY 90 Days Qty: 90 1RF quetiapine 200 mg tablet 200 mg PO BEDTIME 30 Days Qty: 30 0RF escitalopram oxalate 10 mg tablet 1 tab PO DAILY cyclobenzaprine 10 mg tablet 10 mg PO TID PRN (Reason: Muscle Spasm) polyethylene glycol 3350 [Miralax] 17 gram/dose powder 17 g PO DAILY PRN (Reason: Constipation) cefuroxime axetil 500 mg tablet 500 mg PO BID Qty: 10 0RF
[2023-04-28 06:25] LABS: Anion Gap 13 (12-20); Carbon Dioxide 25 mmol/L (22-29)
--- NOTE | 2023-04-28 07:40 | MHC.EDTECH ---
patient wash and clean ,bed change ,reposition .Patient had a lg BM
[2023-04-28 07:41] VITALS: BP 130/73; PULSE 70; RESP 20; TEMP 36.5; O2SAT 94
--- NOTE | 2023-04-28 07:55 | PC.NURSE ---
Pt was incontinent of bowel, ADLs performed. currently sleeping, SpO2 between 88%-94%, O2 administered @ 2L via NC, SpO2 increased to 90-98%.
--- NOTE | 2023-04-28 09:08 | PC.NURSE ---
Urine collected and sent to lab, pending results.
[2023-04-28 10:25] LABS: Amphetamine Screen Urine Not Detected (Not Detect); Barbiturates, Urine Not Detected (Not Detect); Benzodiazepines Screen Urine Not Detected (Not Detect); Cannabinoid Screen Urine POSITIVE (Not Detect); Cocaine Screen Urine POSITIVE (Not Detect); Fentanyl, urine Not Detected (Not Detect); Opiate Screen Urine Not Detected (Not Detect); Phencyclidine Screen Urine Not Detected (Not Detect)
[2023-04-28 12:44] VITALS: PULSE 71; RESP 18
--- NOTE | 2023-04-28 14:47 | PC.NURSE ---
Pt alert, stated he was hugnry, meal given, SpO2 96% on RA.
== END 2023-04-28 15:57 | disposition home or self-care (01) ==
PROVIDERS: Student in an Organized Health Care Education/Training Program; Emergency Provider Emergency Medicine
DX: R06.02 Shortness of breath (principal); F14.10 Cocaine abuse, uncomplicated; F17.210 Nicotine dependence, cigarettes, uncomplicated; Z71.6 Tobacco abuse counseling; Z79.899 Other long term (current) drug therapy
CPT/HCPCS: 36415; 71045; 80053; 80307; 84484; 85025; 93005; 99284; 99285

== ENCOUNTER → 2023-04-28 04:45 | Outpatient (BNV) | payer OTHER, SELFPAY | PROVIDERS: Emergency Provider Emergency Medicine; Visit Provider Internal Medicine Cardiovascular Disease | DX: R06.02 Shortness of breath (principal) | CPT/HCPCS: 93010 ==

== ENCOUNTER 2023-07-12 03:17 | Emergency (ER) | payer OTHER, SELFPAY ==
[2023-07-12 03:22] VITALS: BP 118/62; PULSE 77; O2SAT 84
--- NOTE | 2023-07-12 04:19 | PC.NURSE ---
Addendum entered by Holly Ritchie 07/12/23 04:23: skin intact no open areas noted. Original Note: pt arrived incont stool and urine. pt has 10/10 jett leg pain and was able to stand at the bedside with a walker, 2 assist for safety while pt cleaned his own buttocks and mane area. pt states he is homeless and was given a turkey sandwhich, orange juice and cheese stick. pt very grateful and is encourage to perform his adl's.
[2023-07-12 04:25] VITALS: BP 177/81; PULSE 90; RESP 20; TEMP 36.7; O2SAT 98; BMI 43.0
[2023-07-12 04:28] VITALS: BP 117/81; PULSE 90; RESP 20; TEMP 36.7; O2SAT 98
--- NOTE | 2023-07-12 05:27 | ED.LOWEXIN ---
HPI - Extremity Injury (Lower) General Chief Complaint: Extremity Injury, Lower Stated Complaint: R foot pain Time Seen by Provider: 07/12/23 05:05 Source: patient Mode of arrival: EMS Limitations: no limitations History of Present Illness HPI Narrative: 58-year-old male with history of obstructive sleep apnea, hypertension, GERD, left footdrop, cocaine use, chronic back pain presents emergency department for evaluation of right foot pain. At the time of my interview the patient was signed but questions. He told me that he has arthritis and he was here because of his ?condition ?. He states that he has arthritis and has pain in his lower back. He also states that he has been having pain in his feet since he has been walking around in the cold rain and he is homeless. Patient states he is also very hungry and has not had food the in 24 hours. Related Data Home Medications Medication Instructions Recorded Confirmed cyclobenzaprine 10 mg tablet 10 mg PO TID PRN Muscle Spasm 10/22/22 01/02/23 escitalopram oxalate 10 mg tablet 1 tab PO DAILY 10/22/22 01/02/23 polyethylene glycol 3350 17 17 g PO DAILY PRN Constipation 10/22/22 01/02/23 gram/dose oral powder (Miralax) Previous Rx's Medication Instructions Recorded left ankle brace #1 ea 06/29/21 showerhead hand held #1 ea 12/08/21 rollator heavy duty #1 ea 01/10/22 wheelchair #1 ea 01/10/22 walker (Ultra-Light Rollator misc) #1 ea 02/07/22 cefuroxime axetil 500 mg tablet 500 mg PO BID #10 tabs 10/26/22 bisacodyl 5 mg tablet,delayed 10 mg (2 x 5 mg) PO BEDTIME PRN 11/29/22 release (Dulcolax (bisacodyl)) constipation #60 tabs losartan 50 mg tablet 50 mg PO DAILY 90 days #90 tabs 11/29/22 pull ups #120 ea 12/02/22 wipes #500 ea 12/02/22 fluticasone propionate 50 1 spray intranasal DAILY nasal 03/07/23 mcg/actuation nasal congestion #16 grams spray,suspension (Allergy Relief (fluticasone)) apixaban 5 mg tablet (Eliquis) 5 mg PO BID #120 tabs 03/08/23 cholecalciferol (vitamin D3) 25 25 mcg PO DAILY 90 days #90 tabs 03/08/23 mcg (1,000 unit) tablet hydrochlorothiazide 25 mg tablet 25 mg PO DAILY 90 days #90 tabs 03/08/23 quetiapine 200 mg tablet 200 mg PO BEDTIME 30 days #30 tabs 03/08/23 Allergies Allergy/AdvReac Type Severity Reaction Status Date / Time hydrocodone [HYDROCODONE] Allergy Intermediate ITCHING Verified 04/28/23 05:10 oxycodone Allergy Intermediate rash Verified 04/28/23 05:10 Review of Systems Review of Systems: Yes all other systems are reviewed and are negative [facility] Past Medical History Medical History Cocaine use disorder Hypertension Cocaine use Cellulitis of right middle finger Class 2 obesity with body mass index (BMI) of 37.0 to 37.9 in adult ROSEMARY (obstructive sleep apnea) GERD (gastroesophageal reflux disease) Foot drop, left foot Foreign body (FB) in soft tissue Smoker Chronic back pain Surgical History History of spinal surgery History of gastrectomy History of back surgery Family History Family History Father Stroke CVD (cardiovascular disease) Mother Palpitation Brother Asthma Brother No problems noted. Brother No problems noted. Sister No problems noted. Social History Social History Household Members: None Housing: Homeless Do you presently have visiting nurse or other home services: No Alcohol intake: current Alcohol intake frequency: 3 or more drinks per day Alcohol type: beer and hard liquor Patient Tobacco Use Status: Current everyday Tobacco user Tobacco use type: Cigarette Cigarettes Per Day: 5 e-Cigarette/Vaping Use: Never Used Second Hand Smoke Exposure: No Substance Use Type: Crack/Cocaine Advance Directives: Yes Advance Directives Information Provided: Yes Advance Directives on File: No service: No Current occupational status: disabled Current occupation: rt hand Physical Exam Vital Signs: Vital Signs: Last Vital Signs Temp 98.1 F 07/12/23 04:28 Pulse 90 07/12/23 04:28 Resp 20 07/12/23 04:28 BP 117/81 07/12/23 04:28 Pulse Ox 98 07/12/23 04:28 O2 Del Method Room Air 07/12/23 04:28 BMI result Body Mass Index 43.0 Vital signs were normal Exam General: Somnolent but arousable, oriented to person, elevated BMI 43 Head: Normocephalic, atraumatic EENT: PERRL, Lids normal, sclera normal, conjunctiva normal, nose normal , ears normal, throat without erythema or exudates Neck: Supple, no adenopathy, trachea midline and nontender Lung: breath sounds symmetric, no wheezing, rales or rhonchi Chest: symmetric movement, nontender Heart: regular rate and rhythm, normal S1, S2 no murmurs or rubs Abdomen: soft, obese non-tender, nondistended, normal bowel sounds Back: no vertebral tenderness, no CVAT Extremities: no deformities, moves all extremities symmetrically, her trace to 1+ pitting edema in his feet to just below his knees, symmetric Skin: no rashes, no lesion, normal color and warmth Neuro: Somnolent but arousable, oriented to person, normal speech, cranial nerves intact, moves all extremities symmetrically Medical Decision Making Medical Decision Making MDM Narrative: 58-year-old male with history of obstructive sleep apnea, hypertension, GERD, left footdrop, cocaine use, chronic back pain presents emergency department for evaluation of lower back pain and bilateral feet pain. Patient's examination is consistent with his chronic arthritis/chronic back pain. Patient was given Tylenol 975 mg orally. Patient was also given food to eat. The patient will be discharged home Differential Diagnosis Differential Diagnoses: The differential diagnosis associated with the presentation includes Differential diagnosis includes was not limited to acute back pain, chronic back pain, osteoarthritis Chronic Conditions Patient?s care impacted by: Hypertension and Other (Cocaine use disorder) Social Determinants Patient?s care significantly limited by Social Determinants of Health including: Inadequate housing Discharge Plan Discharge Clinical Impression: Acute exacerbation of chronic low back pain, Osteoarthritis Patient Disposition: Home, Self-Care Instructions: Back Pain (ED) Prescriptions: No Action (DME) left ankle brace large See Rx Instructions .Route .MEDSUPPLY Qty: 1 0RF Rx Instructions: As directed (DME) showerhead hand held See Rx Instructions .Route .MEDSUPPLY Qty: 1 0RF Rx Instructions: As directed (DME) rollator heavy duty heavy duty See Rx Instructions .Route .MEDSUPPLY Qty: 1 0RF Rx Instructions: As directed (DME) wheelchair See Rx Instructions .Route .MEDSUPPLY Qty: 1 0RF Rx Instructions: Patient needs to rest his left foot (DME) Ultra-Light Rollator Misc See Rx Instructions .ROUTE .MEDSUPPLY Qty: 1 0RF Rx Instructions: As directed bisacodyl [Dulcolax (bisacodyl)] 5 mg tablet,delayed release (DR/EC) 10 mg PO BEDTIME PRN (Reason: constipation) Qty: 60 0RF losartan 50 mg tablet 50 mg PO DAILY 90 Days Qty: 90 3RF (DME) pull ups XL See Rx Instructions .Route .MEDSUPPLY Qty: 120 3RF Rx Instructions: four times per day (DME) wipes See Rx Instructions .Route .MEDSUPPLY Qty: 500 0RF Rx Instructions: As directed fluticasone propionate [Allergy Relief (fluticasone)] 50 mcg/actuation spray,suspension 1 spray intranasal DAILY Qty: 16 0RF Rx Instructions: administer into each nostril Eliquis 5 mg tablet 5 mg PO BID Qty: 120 2RF cholecalciferol (vitamin D3) 25 mcg (1,000 unit) tablet 25 mcg PO DAILY 90 Days Qty: 90 3RF hydrochlorothiazide 25 mg tablet 25 mg PO DAILY 90 Days Qty: 90 1RF quetiapine 200 mg tablet 200 mg PO BEDTIME 30 Days Qty: 30 0RF escitalopram oxalate 10 mg tablet 1 tab PO DAILY cyclobenzaprine 10 mg tablet 10 mg PO TID PRN (Reason: Muscle Spasm) polyethylene glycol 3350 [Miralax] 17 gram/dose powder 17 g PO DAILY PRN (Reason: Constipation) cefuroxime axetil 500 mg tablet 500 mg PO BID Qty: 10 0RF
[2023-07-12] MEDS: Acetaminophen 325 MG TABLET 975 MG PO (06:29)
== END 2023-07-12 08:50 | disposition home or self-care (01) ==
PROVIDERS: Emergency Provider Emergency Medicine Emergency Medical Services; PCP Internal Medicine
DX: M19.071 Primary osteoarthritis, right ankle and foot (principal); M54.50 Low back pain, unspecified; Z79.899 Other long term (current) drug therapy
CPT/HCPCS: 99284

== ENCOUNTER 2023-07-31 07:07 | Outpatient (AMB) | payer OTHER, SELFPAY ==
[2023-07-31 07:26] VITALS: BP 118/72; PULSE 89; O2SAT 97; BMI 42.8
--- NOTE | 2023-07-31 07:26 | A.OFFPC_ITS ---
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 Accompanied by: Self / Same As Patient Allergies hydrocodone [HYDROCODONE] Allergy (Intermediate, Verified 07/31/23 07:53) ITCHING oxycodone Allergy (Intermediate, Verified 07/31/23 07:53) rash Medication List - Last Reconciled 07/31/23 by Francine Thornton MD apixaban (Eliquis) 5 mg PO BID bisacodyl (Dulcolax (bisacodyl)) 10 mg (2 x 5 mg) PO BEDTIME PRN cholecalciferol (vitamin D3) 25 mcg PO DAILY 90 days cyclobenzaprine 10 mg PO TID PRN escitalopram oxalate 1 tab PO DAILY fluticasone propionate 50 mcg/actuation (Allergy Relief (fluticasone)) 1 spray intranasal DAILY hydrochlorothiazide 25 mg PO DAILY 90 days [left ankle brace As directed] losartan 50 mg PO DAILY 90 days polyethylene glycol 3350 (Miralax) 17 grams PO DAILY PRN [pull ups four times per day] quetiapine 200 mg PO BEDTIME 30 days [rollator heavy duty As directed] [showerhead hand held As directed] walker (Ultra-Light Rollator misc) As directed [wheelchair Patient needs to rest his left foot] [wipes As directed] Tobacco use date assessed: 01/02/23 Dental Screening Dental Screen Date: 07/31/23 Did you have a dental visit in the last 12 months?: No Did you have a dental problem in the last 6 months where you did not have access to dental care?: No Was dental information given to patient?: No HPI HPI Comments History of Present Illness Details This is a 58-year-old male with hypertension, morbid obesity, mild major depression, cocaine use disorder and alcoholism that comes today requiring an electric wheelchair due to left footdrop. He can walk about 2 blocks with walker but over 2 blocks needs an electric wheelchair to move. Has 5/5 upper limbs strength. Blood pressure stable. He is morbidly obese with a BMI of 42.8 and was advised to diet and exercise and consider weight loss surgery. Depression stable with Seroquel. Stop drinking alcohol a month ago as per patient. He is in remission for his cocaine use disorder. No chest pain or shortness of breath. [facility] Medical History (Updated 07/31/23 @ 08:29 by Francine Thornton MD) Cocaine use disorder Hypertension Cocaine use Cellulitis of right middle finger Class 2 obesity with body mass index (BMI) of 37.0 to 37.9 in adult ROSEMARY (obstructive sleep apnea) GERD (gastroesophageal reflux disease) Foot drop, left foot Foreign body (FB) in soft tissue Smoker Chronic back pain Surgical History History of spinal surgery History of gastrectomy History of back surgery Family History Father Stroke CVD (cardiovascular disease) Mother Palpitation Brother Asthma Brother No problems noted. Brother No problems noted. Sister No problems noted. Social History (Updated 07/31/23 @ 07:57 by Francine Thornton MD) Household Members: None Housing: Homeless Do you presently have visiting nurse or other home services: No Alcohol intake: former Patient Tobacco Use Status: Current everyday Tobacco user Tobacco use type: Cigarette Cigarettes Per Day: 5 e-Cigarette/Vaping Use: Never Used Second Hand Smoke Exposure: No Substance Use Type: Crack/Cocaine service: No Current occupational status: disabled Current occupation: rt hand Cognitive needs: No Hearing needs: No Vision needs: Yes Questionnaire PHQ-9 Over the last 2 weeks, how often have you been bothered by any of the following problems? 1. Little interest or pleasure in doing things: several days 2. Feeling down, depressed, or hopeless: several days 3. Trouble falling or staying asleep, or sleeping too much: several days 4. Feeling tired or having little energy: several days 5. Poor appetite or overeating: several days 6. Feeling bad about yourself - or that you are a failure or have let yourself or your family down: several days 7. Trouble concentrating on things, such as reading the newspaper or watching television: several days 8. Moving or speaking so slowly that other people could have noticed. Or the opposite - being so fidgety or restless that you have been moving around a lot more than usual: several days 9. Thoughts that you would be better off or of hurting yourself in some way: not at all Total score: 8 Depression Screening Interpretation: Positive Depression Screening Follow-up: Existing condition and In treatment Depression Screening Done: Yes 13567 - PHQ-9 Billing: Yes Source: Developed by Drs. Cesar Maguire, Dewayne Dudley and colleagues, with an educational luz from [employer]. Thrive Questionnaire Date Thrive assessed: 01/02/23 AUDIT C Alcohol Use Questionnaire (AUDIT-C) 1. How often do you have a drink containing alcohol?: Never 2. How many drinks containing alcohol do you have on a typical day when you are drinking?: 1 or 2 3. How often do you have six or more drinks on one occasion?: Never Total Score: 0 BRANDT-7 AMB Questionnaire BRANDT-7 Date BRANDT - 7 assessed: 01/02/23 Source: Developed by Drs. Cesar Maguire, Ivonne Milan, Dewayne Woodruff and colleagues, with an educational luz from [employer]. Review of Systems Const All systems reviewed & are unremarkable except as noted in HPI and below Eyes Reports no additional complaints, Denies change in vision and Denies other visual disturbances Card Denies chest pain at rest, Denies chest pain with activity, Denies edema, Denies irregular heart rhythm, Denies claudication, Denies dyspnea, Denies dyspnea on exertion, Denies orthopnea, Denies paroxysmal nocturnal dyspnea and Denies slow heart rate Resp Denies cough, Denies dyspnea and Denies dyspnea on exertion GI Denies abdominal pain, Denies change in bowel habits, Denies excessive flatus, Denies nausea and Denies vomiting Denies urinary hesitancy, Denies urinary incontinence and Denies urinary urgency Musc Reports abnormal gait, Reports back pain, Denies atrophy, Reports deformity and Reports limited range of motion Skin/Breast Denies bleeding lesions, Denies changing lesions and Denies rash Neuro Reports abnormal gait and Denies lack of coordination Physical exam (Primary Care) Vital Signs: Last Vital Signs Pulse 89 07/31/23 07:26 BP 118/72 07/31/23 07:26 Pulse Ox 97 07/31/23 07:26 Oxygen Delivery Method Room Air 07/31/23 07:26 BMI result Body Mass Index 42.8 Tobacco/Smoking Status: Tobacco use Status Tobacco use date assessed 01/02/23 07/31/23 07:31 Patient Tobacco Use Status Current everyday Tobacco 07/31/23 07:57 Tobacco use type Cigarette 07/31/23 07:57 e-Cigarette/Vaping Use Never Used 07/31/23 07:57 PHQ-9: PHQ-9 Score PHQ-9: Total score 8 07/31/23 08:04 Depression Screening Interpretation: Positive Depression Screening Follow-up: Existing condition and In treatment Thrive Assessment: Date of Thrive Assessment Date Thrive assessed 01/02/23 07/31/23 07:31 Const Limitations: ambulation with walker Eyes General: appearance normal, both eyes and all related structures Eyelids: Yes eyelids normal Conjunctivae: conjunctivae normal Neck Neck: Yes normal visual inspection and Yes supple Resp Effort & Inspection: normal respiratory effort Auscultation: clear to auscultation bilaterally Cardio Jugular venous distension: no JVD Rate: regular rate Rhythm: regular rhythm Heart sounds: S1 normal heart sound present and S2 normal heart sound present Office Procedures Flu Questionnaire Does the patient have a severe egg allergy?: No Does the patient have severe life threatening allergies?: No Does the patient have a fever or illness today?: No Has the patient ever had Guillain-[place] Syndrome?: No Has the patient ever had any past reaction to a flu shot?: No Immunizations flu vacc [id number] 6mos up(PF) 60 mcg(15 mcgx4)/0.5 mL IM syringe Performing Provider: Francine Thornton MD Performing Location: [facility] Administered by: DEQUAN Pineda on 07/31/23 08:05 Dose Route Admin Location Dispensed Lot Number Expiration Date NDC Jig Builder 0.5 mL IM Left Deltoid 0.5 mL [id number] 04/14/24 [id number] [employer] VIS Given Date VIS Provided VIS Publication Date 07/31/23 Single Vaccine 21 Eligibility Eligibility Date Funding Source Not VFC Eligible 07/31/23 Private Assessment and Plan Assessment & Plan (1) Hypertension: Code(s): I10 - Essential (primary) hypertension Plan: Continue losartan and hydrochlorothiazide. Blood pressure goal is equal or less than 130/80. (2) Mild major depression: Code(s): F32.0 - Major depressive disorder, single episode, mild Plan: Continue escitalopram and Seroquel. (3) Foot drop, left foot: Code(s): M21.372 - Foot drop, left foot Plan: Continue walker for very short distance. Start electric wheelchair for long distance. (4) Cocaine use disorder: Code(s): F14.10 - Cocaine abuse, uncomplicated Plan: In remission. (5) Alcoholism: Code(s): F10.20 - Alcohol dependence, uncomplicated Plan: Stop drinking alcohol a month ago. (6) Morbid obesity with BMI of 40.0-44.9, adult: Code(s): E66.01 - Morbid (severe) obesity due to excess calories; Z68.41 - Body mass index [BMI] 40.0-44.9, adult Plan: Consider weight loss surgery. BMI goal is less than 30 Orders: Orders Influenza [id number] Immunization Today Z23 - Encounter for immunization Coding Level of Care Code Est Pt Level 4 (86223) Diagnoses Hypertension I10 Mild major depression F32.0 Foot drop, left foot M21.372 Cocaine use disorder F14.10 Alcoholism F10.20 Morbid obesity with BMI of 40.0-44.9, adult E66.01; Z68.41 Time Spent (min) 24
== END 2023-07-31 08:05 | disposition home or self-care (01) ==
PROVIDERS: PCP Internal Medicine; Visit Provider Internal Medicine
DX: Z23 Encounter for immunization (principal); M21.372 Foot drop, left foot; F32.0 Major depressive disorder, single episode, mild; F14.10 Cocaine abuse, uncomplicated; F10.20 Alcohol dependence, uncomplicated
CPT/HCPCS: 90471; 90686; 99214

== ENCOUNTER 2023-08-07 09:56 | Emergency (ER) | payer OTHER, SELFPAY ==
--- NOTE | ~2023-08-07 | XR_ITS ---
EXAMINATION: XR SHOULDER, LEFT CLINICAL INFORMATION: Fell onto shoulder COMPARISON: None available. TECHNIQUE: AP external rotation, Grashey, scapular Y views of the left shoulder. FINDINGS: The bones are intact. No fracture. Glenohumeral and acromioclavicular alignment is anatomic with normal glenohumeral joint space. There is widening of the acromioclavicular joint, measuring 1.1 cm on the AP external rotation view. This raises concern regarding AC joint separation. No abnormal soft tissue calcifications. XR/XR shoulder LT min 2V IMPRESSION: Widening of the acromioclavicular joint, raising concern regarding AC joint separation. Radiographs of the AC joints with and without weights could be obtained for further evaluation.
[2023-08-07 10:20] VITALS: BP 143/112; PULSE 68; RESP 16; TEMP 36.4; O2SAT 95; BMI 42.3
--- NOTE | 2023-08-07 12:41 | ED_ITS ---
HPI - Extremity Problem General Chief complaint: Extremity Injury, Upper Stated complaint: l shoulder to elbow pain fall 2 mos ago Time Seen by Provider: 08/07/23 12:41 Source: patient Mode of arrival: ambulatory Limitations: no limitations History of Present Illness HPI Narrative: Patient is a 58 year old assigned male at with a history of chronic back pain presenting to the emergency department today with left shoulder pain. Patient states that 2 months ago, he tripped and fell landing on his left shoulder and has been having pain ever since. Patient denies any dizziness, lightheadedness, abdominal pain, nausea, vomiting, fever, chills, blurry vision, double vision, loss of vision, chest pain, difficulty breathing, shortness of breath, back pain, night sweats, pain with urination, increased urinary frequency, increased urinary urgency, blood in his urine or stool, syncope or a near syncopal episode, bowel incontinence, bladder incontinence, bowel retention, bladder retention, or any other complaints at this time. MD Complaint: extremity pain Onset (ago): month(s) (2) Pain Consistency: constant Location: left and upper extremity Severity scale (1-10): 3 Quality: aching and dull Radiation: none Relieving factors: nothing Exacerbating factors: nothing Associated symptoms: denies other symptoms Related Data Home Medications Medication Instructions Recorded Confirmed cyclobenzaprine 10 mg tablet 10 mg PO TID PRN Muscle Spasm 10/22/22 07/31/23 escitalopram oxalate 10 mg tablet 1 tab PO DAILY 10/22/22 07/31/23 polyethylene glycol 3350 17 17 g PO DAILY PRN Constipation 10/22/22 07/31/23 gram/dose oral powder (Miralax) Previous Rx's Medication Instructions Recorded left ankle brace #1 ea 06/29/21 showerhead hand held #1 ea 12/08/21 rollator heavy duty #1 ea 01/10/22 wheelchair #1 ea 01/10/22 walker (Ultra-Light Rollator misc) #1 ea 02/07/22 bisacodyl 5 mg tablet,delayed 10 mg (2 x 5 mg) PO BEDTIME PRN 11/29/22 release (Dulcolax (bisacodyl)) constipation #60 tabs losartan 50 mg tablet 50 mg PO DAILY 90 days #90 tabs 11/29/22 pull ups #120 ea 12/02/22 wipes #500 12/02/22 fluticasone propionate 50 1 spray intranasal DAILY nasal 03/07/23 mcg/actuation nasal congestion #16 grams spray,suspension (Allergy Relief (fluticasone)) apixaban 5 mg tablet (Eliquis) 5 mg PO BID #120 tabs 03/08/23 cholecalciferol (vitamin D3) 25 25 mcg PO DAILY 90 days #90 tabs 03/08/23 mcg (1,000 unit) tablet hydrochlorothiazide 25 mg tablet 25 mg PO DAILY 90 days #90 tabs 03/08/23 quetiapine 200 mg tablet 200 mg PO BEDTIME 30 days #30 tabs 03/08/23 compression stockings #1 ea 07/31/23 electric wheelchair #1 ea 07/31/23 shower chair #1 ea 07/31/23 Allergies Allergy/AdvReac Type Severity Reaction Status Date / Time hydrocodone [HYDROCODONE] Allergy Intermediate ITCHING Verified 07/31/23 07:53 oxycodone Allergy Intermediate rash Verified 07/31/23 07:53 Review of Systems Constitutional: Constitutional: Reports no additional constitutional complaints, Denies chills, Denies fever(s) and Denies night sweats Eyes: Eyes: Reports no additional eye complaints, Denies blurry vision, Denies change in vision, Denies diplopia, Denies eye discharge, Denies loss of vision and Denies eye pain ENT: Denies dizziness Cardiovascular: Cardiovascular: Reports no additional cardiovascular complaints, Denies chest pain, Denies lightheadedness, Denies Loss of Consciousness and Denies dyspnea Respiratory: Respiratory: Reports no additional respiratory complaints and Denies dyspnea Gastrointestinal: Gastrointestinal: Reports no additional gastrointestinal complaints, Denies abdominal pain, Denies melena, Denies hematochezia, Denies change in bowel habits and Denies change in stool character Genitourinary: Genitourinary: Reports no additional male genitourinary complaints, Denies hematuria, Denies oliguria, Denies difficulty urinating, Denies dysuria, Denies urinary frequency, Denies urinary hesitancy, Denies urinary incontinence and Denies urinary urgency Musculoskeletal: Musculoskeletal: Reports no additional musculoskeletal complaints, Denies numbness and Denies tingling Comments: left shoulder pain Neurologic: Denies dizziness, Denies loss of vision, Denies numbness and Denies tingling Psychiatric: Psychiatric: Reports no additional psychiatric complaints Endocrine: Endocrine: Reports no additional endocrine complaints Hematologic/Lymphatic: Hematologic/Lymphatic: Reports no additional hematologic/lymphatic complaints Allergic/Immunologic: Allergic/Immunologic: Reports no additional allergic/immunologic complaints PMFSH Past Medical History Attestation statement: The following information was validated with the patient. Source: old records reviewed and nursing notes reviewed Medical History Cocaine use disorder Hypertension Cocaine use Cellulitis of right middle finger Class 2 obesity with body mass index (BMI) of 37.0 to 37.9 in adult ROSEMARY (obstructive sleep apnea) GERD (gastroesophageal reflux disease) Foot drop, left foot Foreign body (FB) in soft tissue Smoker Chronic back pain Surgical History History of spinal surgery History of gastrectomy History of back surgery Family History Family History Father Stroke CVD (cardiovascular disease) Mother Palpitation Brother Asthma Brother No problems noted. Brother No problems noted. Sister No problems noted. Social History Social History Household Members: None Housing: Homeless Do you presently have visiting nurse or other home services: No Alcohol intake: former Patient Tobacco Use Status: Current everyday Tobacco user Tobacco use type: Cigarette Cigarettes Per Day: 5 e-Cigarette/Vaping Use: Never Used Second Hand Smoke Exposure: No Substance Use Type: Crack/Cocaine Advance Directives: No Advance Directives Information Provided: Yes service: No Current occupational status: disabled Current occupation: rt hand Cognitive needs: No Hearing needs: No Vision needs: Yes Physical Exam Vital Signs: Vital Signs: Last Vital Signs Temp 97.6 F 08/07/23 10:20 Pulse 68 08/07/23 10:20 Resp 16 08/07/23 10:20 BP 143/112 H 08/07/23 10:20 Pulse Ox 95 08/07/23 10:20 O2 Del Method Room Air 08/07/23 10:20 BMI result Body Mass Index 42.3 Const: General: cooperative, no acute distress, alert and awake Nutritional Appearance: well nourished Orientation/consciousness: patient oriented x3 Limitations: no limitations HEENT: Head: Yes normal to inspection and Yes atraumatic Ears: hearing grossly normal bilaterally and external ears normal General nose exam: Normal external nose present, no nasal discharge noted and no epistaxis Face and sinus: Yes normal facial exam, No abrasion and No laceration Mouth: Normal oral and palatal mucosa present, no drooling and no muffled voice Eyes: General: appearance normal, both eyes and all related structures Periorbital: periorbital findings normal Eyelids: Yes eyelids normal Conjunctivae: conjunctivae normal Pupils: Equal, round and reactive pupils present EOM: EOMs intact bilaterally Neck: Neck: Yes normal visual inspection, Yes full ROM and Yes no lymphadenopathy Chest: Chest palpation & inspection: normal inspection of the chest Resp: Effort & Inspection: normal respiratory effort and able to speak in complete sentences GI: Inspection: Yes normal to inspection Neuro: General: patient oriented x3 and moves all extremities Cranial nerves: Yes Equal, round and reactive pupils present Cognition (Neuro): normal cognition Motor exam (neuro): 5/5 motor strength present throughout Sensory Exam: Normal double simultaneous stimulation for sensation Coordination: [id number] test normal Extrem: Other: pain with left shoulder movement General: Yes normal to inspection and Yes capillary refill normal Psych: Appearance: grossly normal Mental Status: mental status grossly normal Affect: normal affect Attitude: cooperative Thought process: Normal thought process present Thought content: Normal thought content present Insight: Good insight present (Psych) Medical Decision Making Medical Decision Making MDM Narrative: Patient is a 58 year old assigned male at with a history of chronic back pain presenting to the emergency department today with left shoulder pain. Patient's physical exam was as noted in the physical exam portion of this note. Patient's left shoulder x-ray showed an AC separation. I explained my physical exam findings as well as all test results to the patient. I answered all questions asked by the patient. Patient's left arm was placed in a sling, without incident. Patient's PMS was intact prior to and after sling placement. I stressed the importance of the patient taking his medication as prescribed. I stressed the importance of the patient following up with his primary care provider and an orthopedic provider. I stressed the importance of the patient returning to the emergency department immediately if his symptoms were to worsen or if he were to develop any dizziness, shortness of breath, difficulty breathing, chest pain, blurry vision, loss of vision, nausea, vomiting, abdominal pain, fever, chills, back pain, or any other complaints. Patient verbalized agreement and understanding with this treatment plan and discharge. Differential Diagnosis Differential Diagnoses: The differential diagnosis associated with the presentation includes Left shoulder pain Left shoulder fx Left AC separation Independent Interpretation I performed an independent interpretation of an: Plain X-Ray Interpretation: My interpretation is in agreement with the radiologist's impression of this imaging study. EXAMINATION: XR SHOULDER, LEFT CLINICAL INFORMATION: Fell onto shoulder COMPARISON: None available. TECHNIQUE: AP external rotation, Grashey, scapular Y views of the left shoulder. FINDINGS: The bones are intact. No fracture. Glenohumeral and acromioclavicular alignment is anatomic with normal glenohumeral joint space. There is widening of the acromioclavicular joint, measuring 1.1 cm on the AP external rotation view. This raises concern regarding AC joint separation. No abnormal soft tissue calcifications. XR/XR shoulder LT min 2V IMPRESSION: Widening of the acromioclavicular joint, raising concern regarding AC joint separation. Radiographs of the AC joints with and without weights could be obtained for further evaluation. Dictated By: Lara Monroy MD Signed By: Electronically signed by Lara Monroy MD 08/07/23 3080 Radiology Impression Discussion of test interpretation with radiology: I have reviewed the radiologist's reading. Procedures Orthopedic Splinting/Casting Injury #1: Side: left Upper Extremity Injury Location: shoulder Upper Extremity Immobilizer: sling/shoulder immobilizer Discharge Plan Discharge Clinical Impression: AC separation Patient Disposition: Home, Self-Care Instructions: Acromioclavicular Separation (ED), Shoulder Sprain (ED) Additional Instructions: Follow up with your primary care provider and an orthopedic provider. Return to the emergency department immediately if your symptoms worsen or if you develop any dizziness, shortness of breath, difficulty breathing, chest pain, blurry vision, loss of vision, nausea, vomiting, abdominal pain, fever, chills, back pain, or any other complaints. Prescriptions: No Action (DME) left ankle brace large See Rx Instructions .Route .MEDSUPPLY Qty: 1 0RF Rx Instructions: As directed (DME) showerhead hand held See Rx Instructions .Route .MEDSUPPLY Qty: 1 0RF Rx Instructions: As directed (DME) rollator heavy duty heavy duty See Rx Instructions .Route .MEDSUPPLY Qty: 1 0RF Rx Instructions: As directed (DME) wheelchair See Rx Instructions .Route .MEDSUPPLY Qty: 1 0RF Rx Instructions: Patient needs to rest his left foot (DME) Ultra-Light Rollator Misc See Rx Instructions .ROUTE .MEDSUPPLY Qty: 1 0RF Rx Instructions: As directed bisacodyl [Dulcolax (bisacodyl)] 5 mg tablet,delayed release (DR/EC) 10 mg PO BEDTIME PRN (Reason: constipation) Qty: 60 0RF losartan 50 mg tablet 50 mg PO DAILY 90 Days Qty: 90 3RF (DME) pull ups XL See Rx Instructions .Route .MEDSUPPLY Qty: 120 3RF Rx Instructions: four times per day (DME) wipes See Rx Instructions .Route .MEDSUPPLY Qty: 500 0RF Rx Instructions: As directed fluticasone propionate [Allergy Relief (fluticasone)] 50 mcg/actuation spray,suspension 1 spray intranasal DAILY Qty: 16 0RF Rx Instructions: administer into each nostril Eliquis 5 mg tablet 5 mg PO BID Qty: 120 2RF cholecalciferol (vitamin D3) 25 mcg (1,000 unit) tablet 25 mcg PO DAILY 90 Days Qty: 90 3RF hydrochlorothiazide 25 mg tablet 25 mg PO DAILY 90 Days Qty: 90 1RF quetiapine 200 mg tablet 200 mg PO BEDTIME 30 Days Qty: 30 0RF (DME) compression stockings 40 mmHg See Rx Instructions .Route .MEDSUPPLY Qty: 1 0RF Rx Instructions: As directed (DME) shower chair See Rx Instructions .Route .MEDSUPPLY Qty: 1 0RF Rx Instructions: As directed escitalopram oxalate 10 mg tablet 1 tab PO DAILY cyclobenzaprine 10 mg tablet 10 mg PO TID PRN (Reason: Muscle Spasm) polyethylene glycol 3350 [Miralax] 17 gram/dose powder 17 g PO DAILY PRN (Reason: Constipation) (DME) electric wheelchair See Rx Instructions .Route .MEDSUPPLY Qty: 1 0RF Rx Instructions: As directed Referrals: [facility] [place] [facility] [place] [facility] [Provider Group] (Call to establish and follow up with an orthopedic provider. ) Francine Nolen MD [Primary Care Provider] - Interventions: ED Discharge Assessment Last Done: 08/07/23 12:55 Print Language: Spanish
--- NOTE | 2023-08-07 12:57 | PC.NURSE ---
Sling applied to left shoulder, tolerated well. Pt utilizing 4 wheeled walker, did verbalize he feels he would be able to use that or his wheel chair with one arm while wearing sling. In agreement with follow up plan. Pt able to ambulate out with walker.
== END 2023-08-07 12:55 | disposition home or self-care (01) ==
PROVIDERS: Emergency Provider Emergency Medicine; PCP Internal Medicine
DX: S43.52XA Sprain of left acromioclavicular joint, initial encounter (principal); M25.512 Pain in left shoulder; X58.XXXA Exposure to other specified factors, initial encounter; Y93.9 Activity, unspecified; Y92.9 Unspecified place or not applicable; Y99.9 Unspecified external cause status
CPT/HCPCS: 29105; 73030; 99283

== ENCOUNTER 2023-09-06 08:20 | Emergency (ER) | payer OTHER, SELFPAY ==
[2023-09-06 08:46] VITALS: BP 150/93; PULSE 82; RESP 17; TEMP 36.8; O2SAT 93; BMI 41.6
== END 2023-09-06 11:44 | disposition left against medical advice (07) ==
LOC: HO.ED 11:40
PROVIDERS: Emergency Provider Emergency Medicine; PCP Internal Medicine
DX: M75.82 Other shoulder lesions, left shoulder (principal); H92.01 Otalgia, right ear; I10 Essential (primary) hypertension; Z99.3 Dependence on wheelchair
CPT/HCPCS: 20610; 99212; 99281; 99283; J1040

== ENCOUNTER 2023-09-06 11:09 | Outpatient (AMB) | payer OTHER, SELFPAY ==
--- NOTE | 2023-09-06 11:14 | MHC.OFFVIS ---
Intake Intake Visit Reasons: follow up per patient/pain in finger Intake Note: Eliezer 57 year old right hand dominant male presents today for an ER follow up of left shoulder. Patient reports that he fell on his left shoulder about 4 months and has had pain ever since. States recently seen [place] [facility] [place]23 where xrays were taken and was told having an AC separation. He has dull pain that radiates to his elbow. Denies numbness and tingling. Finds little relief with Advil. Allergies hydrocodone [HYDROCODONE] Allergy (Intermediate, Verified 09/06/23 12:22) ITCHING oxycodone Allergy (Intermediate, Verified 09/06/23 08:46) rash HPI follow up per patient/pain in finger HPI Details 58-year-old male who is wheelchair bound presents to the office today for an ER follow-up of left shoulder pain s/p fall on his left shoulder, about 4 months ago. He was seen at ED on 08/07/23 where x-rays were performed. He currently states he has dull pain in his shoulder which radiates down to his elbow. His pain is aggravated with overhead reaching and while sleeping. He denies any numbness or tingling. He finds mild relief with Advil. He does not have a history of diabetes. [facility] Medical History Cocaine use disorder Hypertension Cocaine use Cellulitis of right middle finger Class 2 obesity with body mass index (BMI) of 37.0 to 37.9 in adult ROSEMARY (obstructive sleep apnea) GERD (gastroesophageal reflux disease) Foot drop, left foot Foreign body (FB) in soft tissue Smoker Chronic back pain Surgical History History of spinal surgery History of gastrectomy History of back surgery Family History Father Stroke CVD (cardiovascular disease) Mother Palpitation Brother Asthma Brother No problems noted. Brother No problems noted. Sister No problems noted. Household Members: None Housing: Homeless Do you presently have visiting nurse or other home services: No Alcohol intake: former Patient Tobacco Use Status: Current everyday Tobacco user Tobacco use type: Cigarette Cigarettes Per Day: 5 e-Cigarette/Vaping Use: Never Used Second Hand Smoke Exposure: No Substance Use Type: Crack/Cocaine Advance Directives: No Advance Directives Information Provided: No service: No Current occupational status: disabled Current occupation: rt hand Cognitive needs: No Hearing needs: No Vision needs: Yes Review of Systems Const All systems reviewed & are unremarkable except as noted in HPI and below Physical Exam Const General: cooperative and no acute distress Orientation/consciousness: patient oriented x3 Resp Effort & Inspection: normal respiratory effort and able to speak in complete sentences Cardio Peripheral pulses: Peripheral pulses 2+ throughout Neuro General: patient oriented x3 Extrem Other: Left shoulder normal to inspection. Tenderness over the bicipital groove and along the deltoid region of the shoulder. Forward flexion to 95, external rotation to 90, internal rotation to S1. 5/5 RTC strength. Negative [place] and cross body abduction. NVI. Office Procedures Joint Injection/Drain Joint Injection/Drain Primary Site: left shoulder Prep: site was prepped using aseptic technique, ethochloride spray was applied and injection warnings given Injected: 80 mg of, DepoMedrol, with 8 mL of, 1% plain lidocaine and in the subcromial space Approach Used: posterolateral Procedure: The patient tolerated the procedure well and there was some relief with the local anesthesia Coding 92502 - Glenohumeral/Tronchanteric Bursa/Intraarticular Procedure code (CPT) selection complete Results Reviewed Results Reviewed: xrays of the left shoulder obtained on 08/07/23: IMPRESSION: Widening of the acromioclavicular joint, raising concern regarding AC joint separation. Radiographs of the AC joints with and without weights could be obtained for further evaluation. Assessment & Plan Assessment & Plan (1) Tendonitis of left rotator cuff: Code(s): M75.82 - Other shoulder lesions, left shoulder Plan I compared xrays to previous films in 2019 and did not see a notible difference in the AC joint. We discussed options today which include steroid injection. They did consent to move forward with the left shoulder injection, which was tolerated well. An order for PT was also placed. I recommended rest, ice and elevation and OTC anti-inflammatories PRN for discomfort. If symptoms persist or worsens over the next 6-8 weeks, patient will contact the office, otherwise follow-up as needed. Orders: Orders PT Evaluation and Treatment 09/06/23 M75.82 - Other shoulder lesions, left shoulder Patient Instructions: Scribed for Priscilla Botello PA-C, by Arsenio Quinn medical lab scientist, on 09/06/2023 at 11:15 AM CARLOS. Priscilla Rome PA-C, have personally reviewed and agree with the information entered by the scribe. Coding Level of Care Code Est Pt Level 3 (02240) Diagnoses Tendonitis of left rotator cuff M75.82 CPT Codes Coding - Joint 7: 82021 - Glenohumeral/Tronchanteric Bursa/Intraarticular ([id number])
== END 2023-09-06 12:50 | disposition home or self-care (01) ==
PROVIDERS: PCP Internal Medicine; Visit Provider Physician Assistant
DX: M75.82 Other shoulder lesions, left shoulder (principal)
CPT/HCPCS: 20610; 99213

== ENCOUNTER 2023-09-06 12:04 | Emergency (ER) | payer OTHER, SELFPAY ==
[2023-09-06 12:22] VITALS: BP 145/93; PULSE 70; RESP 18; TEMP 37.1; O2SAT 95; BMI 41.6
--- NOTE | 2023-09-06 12:25 | ED_ITS ---
HPI - Ear Problem General Chief complaint: Ear Problems Stated complaint: Ear Pain Time Seen by Provider: 09/06/23 12:26 Source: patient Mode of arrival: wheelchair Limitations: no limitations History of Present Illness HPI Narrative: 58-year-old male here with complaints of right ear pain for the last 3 weeks with no associated symptoms. Patient denies hearing loss, ear itching, ear drainage, URI symptoms, fevers or chills. Related Data Home Medications Medication Instructions Recorded Confirmed cyclobenzaprine 10 mg tablet 10 mg PO TID PRN Muscle Spasm 10/22/22 07/31/23 escitalopram oxalate 10 mg tablet 1 tab PO DAILY 10/22/22 07/31/23 polyethylene glycol 3350 17 17 g PO DAILY PRN Constipation 10/22/22 07/31/23 gram/dose oral powder (Miralax) Previous Rx's Medication Instructions Recorded left ankle brace #1 ea 06/29/21 showerhead hand held #1 ea 12/08/21 rollator heavy duty #1 ea 01/10/22 wheelchair #1 ea 01/10/22 walker (Ultra-Light Rollator misc) #1 ea 02/07/22 bisacodyl 5 mg tablet,delayed 10 mg (2 x 5 mg) PO BEDTIME PRN 11/29/22 release (Dulcolax (bisacodyl)) constipation #60 tabs losartan 50 mg tablet 50 mg PO DAILY 90 days #90 tabs 11/29/22 pull ups #120 ea 12/02/22 wipes #500 ea 12/02/22 fluticasone propionate 50 1 spray intranasal DAILY nasal 03/07/23 mcg/actuation nasal congestion #16 grams spray,suspension (Allergy Relief (fluticasone)) apixaban 5 mg tablet (Eliquis) 5 mg PO BID #120 tabs 03/08/23 cholecalciferol (vitamin D3) 25 25 mcg PO DAILY 90 days #90 tabs 03/08/23 mcg (1,000 unit) tablet hydrochlorothiazide 25 mg tablet 25 mg PO DAILY 90 days #90 tabs 03/08/23 quetiapine 200 mg tablet 200 mg PO BEDTIME 30 days #30 tabs 03/08/23 compression stockings #1 ea 07/31/23 electric wheelchair #1 ea 07/31/23 shower chair #1 ea 07/31/23 Allergies Allergy/AdvReac Type Severity Reaction Status Date / Time hydrocodone [HYDROCODONE] Allergy Intermediate ITCHING Verified 09/06/23 12:22 oxycodone Allergy Intermediate rash Verified 09/06/23 08:46 Review of Systems Review of Systems: Yes all other systems are reviewed and are negative Constitutional: Constitutional: Reports no additional constitutional complaints, Denies body ache(s), Denies chills, Denies fever(s), Denies headache(s) and Denies weakness Eyes: Eyes: Reports no additional eye complaints and Denies change in vision ENT: Reports system reviewed and no additional complaints, except as documented, Denies dizziness, Denies ear discharge, Reports otalgia, Denies headache(s), Denies hearing loss, Denies nasal congestion, Denies nasal discharge and Denies neck pain Cardiovascular: Cardiovascular: Reports no additional cardiovascular complaints, Denies chest pain, Denies leg edema and Denies dyspnea Respiratory: Respiratory: Reports no additional respiratory complaints, Denies cough and Denies dyspnea Gastrointestinal: Gastrointestinal: Reports no additional gastrointestinal complaints, Denies abdominal pain, Denies diarrhea, Denies nausea and Denies vomiting Genitourinary: Genitourinary: Denies urinary incontinence Musculoskeletal: Musculoskeletal: Reports no additional musculoskeletal complaints, Denies back pain, Denies arthralgias, Denies joint swelling, Denies neck pain, Denies numbness and Denies tingling Integumentary/Breasts: Skin/Breast: Reports system reviewed and no additional complaints, except as docu and Denies rash Neurologic: Reports system reviewed and no additional complaints, except as documented, Denies Abnormal speech present, Denies dizziness, Denies headache(s), Denies numbness, Denies tingling and Denies weakness [facility] Past Medical History Attestation statement: The following information was validated with the patient. Source: old records reviewed and nursing notes reviewed Medical History Cocaine use disorder Hypertension Cocaine use Cellulitis of right middle finger Class 2 obesity with body mass index (BMI) of 37.0 to 37.9 in adult ROSEMARY (obstructive sleep apnea) GERD (gastroesophageal reflux disease) Foot drop, left foot Foreign body (FB) in soft tissue Smoker Chronic back pain Surgical History History of spinal surgery History of gastrectomy History of back surgery Family History Family History Father Stroke CVD (cardiovascular disease) Mother Palpitation Brother Asthma Brother No problems noted. Brother No problems noted. Sister No problems noted. Social History Household Members: None Housing: Homeless Do you presently have visiting nurse or other home services: No Alcohol intake: former Patient Tobacco Use Status: Current everyday Tobacco user Tobacco use type: Cigarette Cigarettes Per Day: 5 e-Cigarette/Vaping Use: Never Used Second Hand Smoke Exposure: No Substance Use Type: Crack/Cocaine service: No Current occupational status: disabled Current occupation: rt hand Cognitive needs: No Hearing needs: No Vision needs: Yes Physical Exam Vital Signs: Vital Signs: Last Vital Signs Temp 98.8 F 09/06/23 12:22 Pulse 70 09/06/23 12:22 Resp 18 09/06/23 12:22 BP 145/93 H 09/06/23 12:22 Pulse Ox 95 09/06/23 12:22 O2 Del Method Room Air 09/06/23 12:22 BMI result Body Mass Index 41.6 Const: General: cooperative, healthy appearing, comfortable and no acute distress Orientation/consciousness: patient oriented x3 Limitations: no limitations HEENT: Head: Yes normal to inspection Ears: hearing grossly normal bilaterally, TM normal on the left, EAC's normal, mastoids normal, no periauricular adenopathy and TM abnormal bulging; not with effusion, not erythematous and not perforated General nose exam: Normal external nose present Face and sinus: Yes normal facial exam Mouth: Normal oral and palatal mucosa present Throat: Yes posterior oropharynx normal, Yes tonsils normal and Yes uvula midline Eyes: General: appearance normal, both eyes and all related structures Pupils: Equal, round and reactive pupils present Neck: Neck: Yes normal visual inspection, Yes full ROM, Yes no lymphadenopathy and Yes no meningeal signs Chest: Chest palpation & inspection: normal inspection of the chest Resp: Effort & Inspection: normal respiratory effort Auscultation: clear to auscultation bilaterally Cardio: Rate: regular rate Rhythm: regular rhythm Peripheral pulses: Peripheral pulses 2+ throughout GI: Inspection: Yes normal to inspection Palpation (GI): Soft to palpation and nontender Auscultation: normal bowel sounds Back/Spine/Pelvis: Thoracic/Lumbar Spine: thoracic and lumbar spine normal to inspection Skin: General skin exam: no rashes or lesions noted Neuro: General: patient oriented x3, no meningeal signs, no focal motor deficits and normal sensation to monofilament Cranial nerves: Yes Equal, round and reactive pupils present Cognition (Neuro): normal cognition Speech: No Abnormal speech present Gait exam (Neuro): Normal gait present Motor exam (neuro): 5/5 motor strength present throughout Extrem: General: Yes normal to inspection Medical Decision Making Medical Decision Making MDM Narrative: 58-year-old male here with complaints of right ear pain for the last 3 weeks with no associated symptoms. Patient denies hearing loss, ear itching, ear drainage, URI symptoms, fevers or chills. Patient has a right ear effusion with no signs of infection. We discussed supportive measures at home, may use [id number] allergy medication as needed. Reviewed worrisome signs and symptoms of when to return to the emergency room. Comfortable plan for discharge home. Differential Diagnosis Differential Diagnoses: The differential diagnosis associated with the presentation includes Eustachian tube dysfunction Low concern for AOM, mastoiditis, malignant otitis externa Admission/Observation Consideration of admission/observation: Escalation of care including admission/observation considered No evidence of mastoiditis, malignant otitis externa on exam to suggest need for advanced imaging, IV antibiotics and or transfer to tertiary care center for ENT consultation Tests considered The following testing was considered but not selected: no evidence of mastoiditis, malignant otitis externa on exam to suggest need for advanced imaging Prescription Management I considered prescription management with: Pain Medication Discharge Plan Discharge Clinical Impression: Eustachian tube dysfunction Patient Disposition: Home, Self-Care Instructions: Earache (ED) Additional Instructions: You do have some fluid in your ear. You do not have an ear infection. Take Tylenol for pain as needed. If any associated sneezing or congestion you may take it [id number] allergy medication. Prescriptions: No Action (DME) left ankle brace large See Rx Instructions .Route .MEDSUPPLY Qty: 1 0RF Rx Instructions: As directed (DME) showerhead hand held See Rx Instructions .Route .MEDSUPPLY Qty: 1 0RF Rx Instructions: As directed (DME) rollator heavy duty heavy duty See Rx Instructions .Route .MEDSUPPLY Qty: 1 0RF Rx Instructions: As directed (DME) wheelchair See Rx Instructions .Route .MEDSUPPLY Qty: 1 0RF Rx Instructions: Patient needs to rest his left foot (DME) Ultra-Light Rollator Misc See Rx Instructions .ROUTE .MEDSUPPLY Qty: 1 0RF Rx Instructions: As directed bisacodyl [Dulcolax (bisacodyl)] 5 mg tablet,delayed release (DR/EC) 10 mg PO BEDTIME PRN (Reason: constipation) Qty: 60 0RF losartan 50 mg tablet 50 mg PO DAILY 90 Days Qty: 90 3RF (DME) pull ups XL See Rx Instructions .Route .MEDSUPPLY Qty: 120 3RF Rx Instructions: four times per day (DME) wipes See Rx Instructions .Route .MEDSUPPLY Qty: 500 0RF Rx Instructions: As directed fluticasone propionate [Allergy Relief (fluticasone)] 50 mcg/actuation spray,suspension 1 spray intranasal DAILY Qty: 16 0RF Rx Instructions: administer into each nostril Eliquis 5 mg tablet 5 mg PO BID Qty: 120 2RF cholecalciferol (vitamin D3) 25 mcg (1,000 unit) tablet 25 mcg PO DAILY 90 Days Qty: 90 3RF hydrochlorothiazide 25 mg tablet 25 mg PO DAILY 90 Days Qty: 90 1RF quetiapine 200 mg tablet 200 mg PO BEDTIME 30 Days Qty: 30 0RF (DME) compression stockings 40 mmHg See Rx Instructions .Route .MEDSUPPLY Qty: 1 0RF Rx Instructions: As directed (DME) shower chair See Rx Instructions .Route .MEDSUPPLY Qty: 1 0RF Rx Instructions: As directed escitalopram oxalate 10 mg tablet 1 tab PO DAILY cyclobenzaprine 10 mg tablet 10 mg PO TID PRN (Reason: Muscle Spasm) polyethylene glycol 3350 [Miralax] 17 gram/dose powder 17 g PO DAILY PRN (Reason: Constipation) (DME) electric wheelchair See Rx Instructions .Route .MEDSUPPLY Qty: 1 0RF Rx Instructions: As directed Referrals: Francine Nolen MD [Primary Care Provider] - 5 days (for continued symptoms )
== END 2023-09-06 12:39 | disposition home or self-care (01) ==
LOC: HO.ED 12:28
PROVIDERS: Emergency Provider Emergency Medicine; PCP Internal Medicine
DX: H83.2X1 Labyrinthine dysfunction, right ear (principal); H92.01 Otalgia, right ear; I10 Essential (primary) hypertension
CPT/HCPCS: 99282

== ENCOUNTER 2023-10-23 10:00 | Outpatient (RCR) | payer OTHER, SELFPAY ==
--- NOTE | 2023-09-26 13:30 | MHC.PT.EP ---
[facility] [place] Office [place] Office [place] Office [address] [phone] F: [phone] F: [phone] F: [phone] F: [phone] Physical Therapy Plan of Care Date of Evaluation: 09/22/23 Date of Surgery: Diagnosis: L shoulder separation Assessment: Pt is a 58yo male who presents with L shoulder instability/pain s/p fall. Skilled PT indicated to reduce pain, restore ROM, teach periscap strengthening and improved posture to maximize functional use of L UE. Pt in agreement with POC and would benefit from skilled PT for L shoulder rehab. Frequency and Duration: The patient will be seen 2x/week, x 4 weeks Short Term Goals: 1. In 2 weeks, patient will be I with phase 1 of HEP including AAROM and isometric exercises for L shoulder. 2. In 2 weeks, improve PROM flexion and abduction 20 degrees. 3. In 2 weeks, patient will demonstrate proper SRD and able to hold during shoulder IR/ER/ext ex. Cooker Tender Goals: 1. In 4 weeks, patient will report improved sleep quality by 50%. 2. In 4 weeks, patient will improve score on SPADI by 30 points indicating improved functional use of arm, and reduced pain. Treatment Plan: Modalities to reduce pain, spasms and effusion. Manual therapy to restore motion and function. Therapeutic exercise to improve strength and flexibility. Neuromuscular re-education for posture and balance. Therapeutic activities to return to functional activities of daily living. Electronically signed by: Alanna Miguel PT, DPT Please sign and return to therapist. Thank you for your referral.
--- NOTE | 2024-05-15 12:07 | MHC.PT.DC ---
[facility] Office [place] [facility] [place] Office [address] [phone] F: [phone] F: [phone] F: [phone] F: [phone] Physical Therapy Discharge Report Diagnosis: L shoulder separation Date of Surgery: Date of Evaluation: 09/22/23 Date of Discharge: 10/23/23 Treatments to Date: 8 Cancellations to Date: No Shows to Date: Discharge Status: Achieved Goals Improved Function Independent with HEP Discharge Summary: Pt was referred to skilled PT for L shoulder separation. Pt fully participated in 8 treatment sessions, and met all goals in POC. Pt is independent w/HEP, AROM WNL's all mvts, and SPADI improved significantly. Pt in agreement with D/C to HEP at this time. Thank you for this referral. Electronically signed by: Alanna Miguel PT, DPT Please sign and return to therapist. Thank you for your referral.
== END 2024-05-15 12:07 | disposition home or self-care (01) ==
LOC: HO.PT 10:00
PROVIDERS: PCP Internal Medicine; Visit Provider Physician Assistant
DX: M75.82 Other shoulder lesions, left shoulder (principal)
CPT/HCPCS: 97110; 97140; 97162; 97530

== ENCOUNTER 2023-12-15 10:09 | Outpatient (AMB) | payer OTHER, SELFPAY ==
[2023-12-15 11:17] VITALS: BP 110/80; PULSE 77; TEMP 37; O2SAT 91; BMI 41.6
--- NOTE | 2023-12-15 11:17 | AM.OFFWIN_ITS ---
Intake Vital Signs 12/15/23 11:17 Height 5 ft 10 in Weight 290 lb BMI 41.6 BP 110/80 Blood Pressure Location Lt brachial Position Sitting Pulse 77 Pulse Source Pulse Oximeter Temp 98.6 F Temp Source Temporal Artery Scan Pulse Oximetry (%) 91 L Oxygen Delivery Method Room Air Intake Visit Reasons: EP Bilateral Leg Swelling Intake Note: pt is here today for bilateral leg swelling started 3 weeks ago Patient Tobacco Use Status: Current everyday Tobacco user Allergies hydrocodone [HYDROCODONE] Allergy (Intermediate, Verified 12/15/23 11:18) ITCHING oxycodone Allergy (Intermediate, Verified 12/15/23 11:18) rash Do you need a note to return to daycare/school/sports/work: No HPI HPI Comments History of Present Illness Details 58 y/o male who presents to walk in [facility] with c/o bilateral leg swelling x 3 weeks. This is a chronic issue. Denies any H/o Cardiac or kidney failure. Denies CP, SOB or wheezing. [facility] Medical History Cocaine use disorder Hypertension Cocaine use Cellulitis of right middle finger Class 2 obesity with body mass index (BMI) of 37.0 to 37.9 in adult ROSEMARY (obstructive sleep apnea) GERD (gastroesophageal reflux disease) Foot drop, left foot Foreign body (FB) in soft tissue Smoker Chronic back pain Surgical History History of spinal surgery History of gastrectomy History of back surgery Family History Father Stroke CVD (cardiovascular disease) Mother Palpitation Brother Asthma Brother No problems noted. Brother No problems noted. Sister No problems noted. Social History Household Members: None Housing: Homeless Do you presently have visiting nurse or other home services: No Alcohol intake: former Patient Tobacco Use Status: Current everyday Tobacco user Tobacco use type: Cigarette Cigarettes Per Day: 5 e-Cigarette/Vaping Use: Never Used Second Hand Smoke Exposure: No Substance Use Type: Crack/Cocaine service: No Current occupational status: disabled Current occupation: rt hand Cognitive needs: No Hearing needs: No Vision needs: Yes Review of Systems Const All systems reviewed & are unremarkable except as noted in HPI and below Physical Exam Vital Signs: Last Vital Signs Temp 98.6 F 12/15/23 11:17 Pulse 77 12/15/23 11:17 BP 110/80 12/15/23 11:17 Pulse Ox 91 L 12/15/23 11:17 Oxygen Delivery Method Room Air 12/15/23 11:17 BMI result Body Mass Index 41.6 Const General: no acute distress Nutritional Appearance: obese Orientation/consciousness: patient oriented x3 Limitations: wheelchair Neuro General: patient oriented x3 Extrem Other: +3 Pitting Edema bilateral lower legs. Pt on wheelchair bound. Assessment & Plan Assessment & Plan (1) Leg edema: Code(s): R60.0 - Localized edema Plan: - Chronic issue - Pt suppose to be wearing compression stocks - Already on HCTZ - F/U with PCP Coding Level of Care Code Est Pt Level 3 (24489) Diagnoses Leg edema R60.0 Time Spent (min) 10
== END 2023-12-15 11:55 | disposition home or self-care (01) ==
PROVIDERS: PCP Internal Medicine; Visit Provider Nurse Practitioner Family
DX: R60.0 Localized edema (principal)
CPT/HCPCS: 99213

== ENCOUNTER 2024-01-24 08:54 | Outpatient (AMB) | payer OTHER, SELFPAY ==
--- NOTE | 2024-01-24 08:57 | A.OFFPC_ITS ---
Vital Signs 01/24/24 08:59 Height 5 ft 10 in Weight 309 lb 15.519 oz BMI 44.5 BP 118/80 Blood Pressure Location Lt brachial Position Sitting Pulse 76 Pulse Source Pulse Oximeter Pulse Oximetry (%) 88 L Oxygen Delivery Method Room Air Intake Visit Reasons: PE Intake Note: Patient is here today for a physical. 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 per policy Accompanied by: Self / Same As Patient Allergies hydrocodone [HYDROCODONE] Allergy (Intermediate, Verified 01/24/24 09:45) ITCHING oxycodone Allergy (Intermediate, Verified 01/24/24 09:45) rash Medication List - Last Reconciled 01/24/24 by Onel Lafleur MD apixaban (Eliquis) 5 mg PO BID cholecalciferol (vitamin D3) 25 mcg PO DAILY 90 days [compression stockings As directed] cyclobenzaprine 10 mg PO TID PRN [electric wheelchair As directed] fluticasone propionate 50 mcg/actuation (Allergy Relief (fluticasone)) 1 spray intranasal DAILY hydrochlorothiazide 25 mg PO DAILY 90 days [left ankle brace As directed] losartan 50 mg PO DAILY 90 days [pull ups four times per day] quetiapine 200 mg PO BEDTIME 30 days [rollator heavy duty As directed] [shower chair As directed] [showerhead hand held As directed] walker (Ultra-Light Rollator misc) As directed [wheelchair Patient needs to rest his left foot] [wipes As directed] Tobacco use date assessed: 01/24/24 Dental Screening Dental Screen Date: 01/24/24 Did you have a dental visit in the last 12 months?: Yes Did you have a dental problem in the last 6 months where you did not have access to dental care?: No Was dental information given to patient?: Patient has dentist HPI PE HPI Details 58-year-old male presents to the office requesting an annual physical. He is at baseline state of health. Ambulating with a walker. He has reporting a swelling in his right foot. He has a foot drop in the left foot and uses a brace. He has requesting a prescription for compression stockings. Patient does not drive. He lives alone and has a QUALITY LEAD for assistance. The QUALITY LEAD does the groceries and the cooking for him. [facility] Medical History (Updated 09/07/23 @ 00:01 by Kyra Flores) Cocaine use disorder Hypertension Cocaine use Cellulitis of right middle finger Class 2 obesity with body mass index (BMI) of 37.0 to 37.9 in adult ROSEMARY (obstructive sleep apnea) GERD (gastroesophageal reflux disease) Foot drop, left foot Foreign body (FB) in soft tissue Smoker Chronic back pain Surgical History History of spinal surgery History of gastrectomy History of back surgery Family History Father Stroke CVD (cardiovascular disease) Mother Palpitation Brother Asthma Brother No problems noted. Brother No problems noted. Sister No problems noted. Social History (Updated 01/24/24 @ 09:05 by DEQUAN Anna) Household Members: None Housing: Homeless Do you presently have visiting nurse or other home services: No Alcohol intake: former Patient Tobacco Use Status: Current everyday Tobacco user Tobacco use type: Cigarette Cigarette Packs Per Day: 0.5 Cigarettes Per Day: 10 e-Cigarette/Vaping Use: Never Used Second Hand Smoke Exposure: Yes Substance Use Type: Crack/Cocaine service: No Current occupational status: disabled Current occupation: rt hand Cognitive needs: Yes (walker) Hearing needs: No Vision needs: Yes Questionnaire PHQ-9 Over the last 2 weeks, how often have you been bothered by any of the following problems? 1. Little interest or pleasure in doing things: more than half the days 2. Feeling down, depressed, or hopeless: more than half the days 3. Trouble falling or staying asleep, or sleeping too much: several days 4. Feeling tired or having little energy: several days 5. Poor appetite or overeating: not at all 6. Feeling bad about yourself - or that you are a failure or have let yourself or your family down: several days 7. Trouble concentrating on things, such as reading the newspaper or watching television: more than half the days 8. Moving or speaking so slowly that other people could have noticed. Or the opposite - being so fidgety or restless that you have been moving around a lot more than usual: several days 9. Thoughts that you would be better off or of hurting yourself in some way: not at all Total score: 10 Depression Screening Interpretation: Positive Depression Screening Follow-up: Existing condition and In treatment Depression Screening Done: Yes Source: Developed by Drs. Cesar Maguire, Dewayne Dudley and colleagues, with an educational luz from [employer]. Thrive Questionnaire Date Thrive assessed: 01/02/23 I am a: Patient What is your living situation today?: I have a steady place to live Within the past 12 months, did the food you bought not last and you didn't have the money to get more?: Never true Within the past 12 months, did you worry whether your food would run out before you got money to buy more?: Never true Do you have trouble paying for medicines?: No Do you have trouble getting transportation to medical appointments?: No Do you have trouble paying your heating and electricity bill?: No Do you have trouble taking care of your child, family member or friend?: No Do you have trouble with day-to-day activities such as bathing, preparing meals, shopping, managing finances, etc.?: No Are you currently unemployed and looking for a job?: No Are you interested in more education?: No Currently or been in a relationship where the following occur: no concerns reported THRIVE Score: 0 AUDIT C Alcohol Use Questionnaire (AUDIT-C) 1. How often do you have a drink containing alcohol?: Never Total Score: 0 BRANDT-7 AMB Questionnaire BRANDT-7 Date BRANDT - 7 assessed: 01/24/24 Feeling nervous, anxious, or on edge: 1 = Several days Not being able to stop or control worryin = Several days Worrying too much about different things: 1 = Several days Trouble relaxin = Several days Being so restless that it is hard to sit still: 1 = Several days Becoming easily annoyed or irritable: 1 = Several days Feeling afraid as if something awful might happen: 1 = Several days Total BRANDT-7 score (0-4 normal; 5-9 mild; 10-14 moderate; 15-21 severe): 7 Source: Developed by Ivonne Monroy Kurt Kroenke and colleagues, with an educational luz from [employer]. Physical exam (Primary Care) Vital Signs: Last Vital Signs Pulse 76 01/24/24 08:59 BP 118/80 01/24/24 08:59 Pulse Ox 88 L 01/24/24 08:59 Oxygen Delivery Method Room Air 01/24/24 08:59 Care Plan Goal for BP management: Blood pressure is in range. BMI result Body Mass Index 44.5 BMI Assessment/Plan discussion: High (1 lb per week weight loss suggested.) BMI High, discussed plan: lifestyle, weight reduction and dietary Tobacco/Smoking Status: Tobacco use Status Tobacco use date assessed 01/24/24 01/24/24 09:08 Patient Tobacco Use Status Current everyday Tobacco 01/24/24 09:08 Tobacco use type Cigarette 01/24/24 09:08 e-Cigarette/Vaping Use Never Used 01/24/24 09:08 Are you ready to quit: No Tobacco cessation counseling provided: No PHQ-9: PHQ-9 Score PHQ-9: Total score 10 01/24/24 09:08 Depression Screening Interpretation: Positive Depression Screening Follow-up: Existing condition and In treatment Thrive Assessment: Date of Thrive Assessment Date Thrive assessed 01/02/23 01/24/24 09:08 Currently or been in a relationship where the following occur: no concerns reported Const General: cooperative and healthy appearing Nutritional Appearance: well nourished Orientation/consciousness: patient oriented x3 Limitations: no limitations HENMT Head: Yes normal to inspection Eyes General: appearance normal, both eyes and all related structures Neck Neck: Yes normal visual inspection Chest Chest palpation & inspection: normal palpation of entire chest wall Resp Effort & Inspection: normal respiratory effort Neuro General: patient oriented x3 Extrem Other: Right foot: Ankle slightly swollen. Two distinct cystic swellings along the tendon. Nontender. Assessment and Plan Assessment & Plan (1) Leg edema: Code(s): R60.0 - Localized edema Plan: The cystic swelling along the tendon is due to excess weight-bearing on the right leg compared to the left. Patient is using a walker. Compression stocking suggested. (2) Morbid obesity with BMI of 40.0-44.9, adult: Code(s): E66.01 - Morbid (severe) obesity due to excess calories; Z68.41 - Body mass index [BMI] 40.0-44.9, adult Plan: Patient unable to exercise due to the footdrop. Advised to reduce calorie intake. (3) Alcoholism: Code(s): F10.20 - Alcohol dependence, uncomplicated Plan: Condition is stable. (4) Mild major depression: Code(s): F32.0 - Major depressive disorder, single episode, mild Plan: Continue current medications. (5) ROSEMARY (obstructive sleep apnea): Code(s): G47.33 - Obstructive sleep apnea (adult) (pediatric) (6) Cocaine use disorder: Code(s): F14.10 - Cocaine abuse, uncomplicated Orders: Orders Lipid Panel Today E66.01 - Morbid (severe) obesity due to excess calories, F10.20 - Alcohol dependence, uncomplicated, G47.33 - Obstructive sleep apnea (adult) (pediatric), R60.0 - Localized edema, Z68.41 - Body mass index [BMI] 40.0-44.9, adult Thyroid Stimulating Hormone Today E66.01 - Morbid (severe) obesity due to excess calories, F10.20 - Alcohol dependence, uncomplicated, G47.33 - Obstructive sleep apnea (adult) (pediatric), R60.0 - Localized edema, Z68.41 - Body mass index [BMI] 40.0-44.9, adult Basic Metabolic Panel Today E66.01 - Morbid (severe) obesity due to excess calories, F10.20 - Alcohol dependence, uncomplicated, G47.33 - Obstructive sleep apnea (adult) (pediatric), R60.0 - Localized edema, Z68.41 - Body mass index [BMI] 40.0-44.9, adult Complete Blood Count no Diff Today E66.01 - Morbid (severe) obesity due to excess calories, F10.20 - Alcohol dependence, uncomplicated, G47.33 - Obstructive sleep apnea (adult) (pediatric), R60.0 - Localized edema, Z68.41 - Body mass index [BMI] 40.0-44.9, adult Liver Panel Today E66.01 - Morbid (severe) obesity due to excess calories, F10.20 - Alcohol dependence, uncomplicated, G47.33 - Obstructive sleep apnea (adult) (pediatric), R60.0 - Localized edema, Z68.41 - Body mass index [BMI] 40.0-44.9, adult UA and rflx microscopic Today E66.01 - Morbid (severe) obesity due to excess calories, F10.20 - Alcohol dependence, uncomplicated, G47.33 - Obstructive sleep apnea (adult) (pediatric), R60.0 - Localized edema, Z68.41 - Body mass index [BMI] 40.0-44.9, adult Coding Level of Care Code Est Pt Prev Care 40-64y(82265) Diagnoses Leg edema R60.0 Morbid obesity with BMI of 40.0-44.9, adult E66.01; Z68.41 Alcoholism F10.20 Mild major depression F32.0 ROSEMARY (obstructive sleep apnea) G47.33 Cocaine use disorder F14.10
[2024-01-24 08:59] VITALS: BP 118/80; PULSE 76; O2SAT 88; BMI 44.5
== END 2024-01-24 09:43 | disposition home or self-care (01) ==
PROVIDERS: PCP Internal Medicine; Visit Provider Internal Medicine
DX: Z00.00 Encounter for general adult medical examination without abnormal findings (principal); R60.0 Localized edema; E66.01 Morbid (severe) obesity due to excess calories; Z68.41 Body mass index [BMI] 40.0-44.9, adult; F10.20 Alcohol dependence, uncomplicated
CPT/HCPCS: 99396

== ENCOUNTER 2024-04-24 10:31 | Outpatient (AMB) | payer OTHER, SELFPAY ==
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
[2024-04-24 10:42] VITALS: BP 134/74; PULSE 72; O2SAT 94; BMI 41.1
== END 2024-04-24 11:00 | disposition home or self-care (01) ==
PROVIDERS: PCP Internal Medicine; Visit Provider Internal Medicine
DX: M54.42 Lumbago with sciatica, left side (principal); G89.29 Other chronic pain
CPT/HCPCS: 99213; G2211

== ENCOUNTER 2024-05-31 09:22 | Outpatient (REF) | payer OTHER, SELFPAY ==
[2024-05-31 11:15] LABS: Hematocrit 47.2 % (42.0-52.0); Hemoglobin 15.5 g/dl (14.0-18.0); Mean Corpuscular HGB Conc 32.8 g/dl (31.0-36.0); Mean Corpuscular Volume 97.5 fL (80.0-98.0); Platelet Count 213 X10*3/uL (160-400); Red Blood Count 4.84 X10*6/uL (4.60-5.80); Red Cell Distribution Width 13.8 % (11.0-16.0); White Blood Count 7.5 X10*3/uL (4.8-10.8)
[2024-05-31 11:47] LABS: Alanine Aminotransferase 15 U/L (0-40); Albumin Level 3.5 g/dL (3.5-5.0); Alkaline Phosphatase 66 U/L (39-117); Anion Gap 9 (12-20); Aspartate Amino Transferase 14 U/L (5-37); Bilirubin Direct 0.2 mg/dL (0.0-0.5); Bilirubin Total 0.5 mg/dL (0.0-1.0); Blood Urea Nitrogen 12 mg/dL (9-16); Calcium 9.1 mg/dL (8.4-10.2); Carbon Dioxide 31 mmol/L (22-29); Chloride 106 mmol/L (96-108); Cholesterol 115 mg/dL (<200); Estimated Glomerular Filt Rate 58; Glucose Random 96 mg/dL (60-115); HDL Cholesterol 28 mg/dL (>40); LDL Cholesterol Calculated 77 mg/dL (<100); Potassium 4.7 mmol/L (3.3-5.1); Sodium 141 mmol/L (135-145); Total Protein 7.9 g/dL (6.5-8.0); Triglycerides 51 mg/dL (<150)
[2024-05-31 12:05] LABS: Thyroid Stimulating Hormone 0.76 uIU/mL (0.32-4.0)
== END 2024-05-31 09:23 | disposition home or self-care (01) ==
LOC: HO.HHCL 09:22
PROVIDERS: Visit Provider Internal Medicine
DX: R60.0 Localized edema (principal); E66.01 Morbid (severe) obesity due to excess calories; Z68.41 Body mass index [BMI] 40.0-44.9, adult; F10.20 Alcohol dependence, uncomplicated; G47.33 Obstructive sleep apnea (adult) (pediatric)
CPT/HCPCS: 36415; 80048; 80061; 80076; 84443; 85027

== ENCOUNTER 2024-07-12 12:43 | Outpatient (AMB) | payer OTHER, SELFPAY ==
--- NOTE | 2024-07-12 12:49 | MHC.OFFWIV ---
Intake Vital Signs 07/12/24 12:50 Height 5 ft 10 in Weight 256 lb BMI 36.7 BP 122/70 Blood Pressure Location Rt brachial Position Sitting Pulse 80 Pulse Source Pulse Oximeter Pulse Oximetry (%) 94 Oxygen Delivery Method Room Air Intake Visit Reasons: EP lower back pain Intake Note: Patient here for lower back pain that has been present for a few weeks. Patient Tobacco Use Status: Current everyday Tobacco user Allergies hydrocodone [HYDROCODONE] Allergy (Intermediate, Verified 07/12/24 12:51) ITCHING oxycodone Allergy (Intermediate, Verified 07/12/24 12:51) rash Do you need a note to return to daycare/school/sports/work: No HPI HPI Comments History of Present Illness Details This is a 59-year-old male with a past medical history of hypertension, obstructive sleep apnea, gastroesophageal reflux disease and left lower extremity DVT currently prescribed Eliquis presenting for evaluation of shortness of breath and right lateral chest pain. Patient states that he has not been taking his Eliquis for the past 2 weeks because he missed placed the prescription. Patient does report minimal shortness of breath but denies having a cough or hemoptysis. Additionally, patient denies having any lower extremity pain. Patient has not taken any oyat-eok-ngnnvro medication for his right lateral chest pain. [facility] Medical History Cocaine use disorder Hypertension Cocaine use Cellulitis of right middle finger Class 2 obesity with body mass index (BMI) of 37.0 to 37.9 in adult ROSEMARY (obstructive sleep apnea) GERD (gastroesophageal reflux disease) Foot drop, left foot Foreign body (FB) in soft tissue Smoker Chronic back pain Surgical History History of spinal surgery History of gastrectomy History of back surgery Family History Father Stroke CVD (cardiovascular disease) Mother Palpitation Brother Asthma Brother No problems noted. Brother No problems noted. Sister No problems noted. Social History Household Members: None Housing: Homeless Do you presently have visiting nurse or other home services: No Alcohol intake: former Patient Tobacco Use Status: Current everyday Tobacco user Tobacco use type: Cigarette Cigarette Packs Per Day: 0.5 Cigarettes Per Day: 10 e-Cigarette/Vaping Use: Never Used Second Hand Smoke Exposure: Yes Substance Use Type: Crack/Cocaine service: No Current occupational status: disabled Current occupation: rt hand Cognitive needs: Yes (walker) Hearing needs: No Vision needs: Yes Review of Systems Const All systems reviewed & are unremarkable except as noted in HPI and below Reports no additional complaints Eyes Reports no additional complaints ENT Reports no additional complaints Card Reports chest pain (right lateral), Denies rapid heart rate and Reports dyspnea Resp Denies cough, Denies hemoptysis, Reports dyspnea and Denies wheezing GI Reports as per HPI Reports no additional complaints Musc Reports no additional complaints, Denies back pain, Denies muscle cramps and Denies muscle weakness Skin/Breast Reports system reviewed and no additional complaints, except as documented Neuro Reports no additional complaints Psych Reports no additional complaints Endo Reports no additional complaints Aller/Immun Denies wheezing Physical Exam Vital Signs: Last Vital Signs Pulse 80 07/12/24 12:50 BP 122/70 07/12/24 12:50 Pulse Ox 94 07/12/24 12:50 Oxygen Delivery Method Room Air 07/12/24 12:50 BMI result Body Mass Index 36.7 Const General: cooperative, comfortable, no acute distress and well developed Nutritional Appearance: average body habitus Orientation/consciousness: patient oriented x3 Limitations: no limitations Chest Chest palpation & inspection: normal inspection of the chest, abnormal palpation of chest wall (pain to palpation of the right posterior lateral lower chest wall) and no localized rib tenderness Resp Effort & Inspection: normal respiratory effort, able to speak in complete sentences, abnormal respiratory pattern and no cough Auscultation: clear to auscultation bilaterally Cardio Rate: regular rate Rhythm: regular rhythm Neuro General: patient oriented x3 Extrem Other: no calf tenderness bilaterally Psych Appearance: grossly normal Mental Status: mental status grossly normal Insight: Good insight present (Psych) Judgement: Good judgement present (Psych) Assessment & Plan Assessment & Plan (1) Inadequate anticoagulation: Comment: Patient has been noncompliant with his Eliquis for the past 2 weeks. Code(s): Z51.81 - Encounter for therapeutic drug level monitoring; Z79.01 - middle or intermediate school principal (current) use of anticoagulants Plan: Patient encouraged to call his primary care provider and/or pharmacy to obtain a refill on his Eliquis. (2) Acute chest wall pain: Comment: Patient has reproducible right-sided chest wall pain however coupled with his inadequate anticoagulation and dyspnea, patient is transferred to the emergency department. Code(s): R07.89 - Other chest pain Plan: Patient to go to the ED for further consultation and care. (3) Dyspnea: Code(s): R06.00 - Dyspnea, unspecified Qualifiers: Dyspnea type: shortness of breath Qualified Code(s): R06.02 - Shortness of breath Plan: Patient will go to the emergency department for a pulmonary emboli rule out given his lack of adequate anticoagulation. Coding Level of Care Code Est Pt Level 4 (36481) Diagnoses Inadequate anticoagulation Z51.81; Z79.01 Acute chest wall pain R07.89 Shortness of breath R06.02 Dyspnea type: shortness of breath Time Spent (min) 25
[2024-07-12 12:50] VITALS: BP 122/70; PULSE 80; O2SAT 94; BMI 36.7
== END 2024-07-12 13:42 | disposition home or self-care (01) ==
PROVIDERS: PCP Internal Medicine; Visit Provider Physician Assistant
DX: R07.89 Other chest pain (principal); R06.02 Shortness of breath; Z51.81 Encounter for therapeutic drug level monitoring; Z79.01 Long term (current) use of anticoagulants

== ENCOUNTER → 2024-07-12 12:43 | Outpatient (BNVA) | payer OTHER, SELFPAY | PROVIDERS: PCP Internal Medicine | DX: R07.89 Other chest pain (principal); R06.02 Shortness of breath; Z79.01 Long term (current) use of anticoagulants | CPT/HCPCS: 99212 ==

== ENCOUNTER 2024-07-15 09:20 | Emergency (ER) | payer OTHER, SELFPAY ==
[2024-07-15 09:49] VITALS: BP 122/77; PULSE 64; RESP 18; TEMP 36.6; O2SAT 96; BMI 35.9
--- NOTE | 2024-07-15 09:54 | ECG_ITS ---
Test Reason : dyspnea Blood Pressure : / mmHG Vent. Rate : 067 BPM Atrial Rate : 067 BPM P-R Int : 212 ms QRS Dur : 102 ms QT Int : 390 ms P-R-T Axes : 031 -02 050 degrees QTc Int : 412 ms Sinus rhythm with 1st degree A-V block Otherwise normal ECG When compared with ECG of 28-APR-2023 05:08, No significant change was found Referred By: Generic ED Physician Electronically Signed By:AMANDA EAGLE
[2024-07-15 10:15] LABS: MANUAL DIFF FLAG NO
[2024-07-15 10:17] LABS: Basophils Absolute Auto 0.1 X10*3/uL (0.0-0.2); Basophils Percent Auto 0.6 % (0-2); Eosinophils Absolute Auto 0.1 X10*3/uL (0.0-0.4); Eosinophils Percent Auto 1.3 % (0-4); Hematocrit 45.1 % (42.0-52.0); Imm Gran Abs Auto 0.05 X10*3/uL (0.00-0.03); Imm Gran Pct Auto 0.6 % (0.0-0.4); Lymphocytes Absolute Auto 1.6 X10*3/uL (1.2-4.9); Lymphocytes Percent Auto 18.7 % (20-40); Mean Corpuscular HGB Conc 33.3 g/dl (31.0-36.0); Mean Corpuscular Hemoglobin 32.8 pg (27.0-33.0); Mean Corpuscular Volume 98.7 fL (80.0-98.0); Mean Platelet Volume 9.7 fL (9.4-12.4); Monocytes Absolute Auto 0.4 X10*3/uL (0.1-1.2); Monocytes Percent Auto 4.5 % (2-11); Neutrophils Absolute Auto 6.3 x10*3/uL (2.0-8.3); Neutrophils Percent Auto 74.3 % (45-73); Platelet Count 193 X10*3/uL (160-400); Red Blood Count 4.57 X10*6/uL (4.60-5.80); Red Cell Distribution Width 14.4 % (11.0-16.0); White Blood Count 8.5 X10*3/uL (4.8-10.8)
[2024-07-15 10:25] LABS: D Dimer High Sensitivity 161 NG/ML
[2024-07-15 10:43] LABS: Troponin-I High Sensitivity 3.9 ng/L (<3.5-35.0)
[2024-07-15 10:44] LABS: Anion Gap 12 (12-20); Blood Urea Nitrogen 15 mg/dL (9-16); Calcium 9.5 mg/dL (8.4-10.2); Carbon Dioxide 28 mmol/L (22-29); Chloride 104 mmol/L (96-108); Creatinine Clr Calc Pharmacy 70.2; Estimated Glomerular Filt Rate 51; Glucose Random 89 mg/dL (60-115); Sodium 139 mmol/L (135-145)
--- NOTE | 2024-07-15 14:45 | ED_ITS ---
HPI - General Adult General Chief complaint: Dyspnea Stated complaint: R side pain Time Seen by Provider: 07/15/24 14:45 Source: patient, RN notes reviewed and old records reviewed Mode of arrival: ambulatory Limitations: no limitations History of Present Illness ED Provider: Desean HPI narrative: 59-year-old male with past medical history significant for GERD, cocaine use disorder, obesity presents for evaluation of right flank pain. The patient reports 3 weeks of right-sided flank pain. The pain is worse with movement and palpation. He reports that he takes Eliquis but has not been taking it for the last 3 weeks. It is unclear why he is taking Eliquis He denies any known arrhythmias and thinks he may have had a blood clot after a surgery many years ago He called his doctor and was instructed to go to the ER to be evaluated for a PE He denies any chest pain or shortness of breath Related Data Previous Rx's ?Medication ?Instructions ?Recorded showerhead hand held #1 ea 12/08/21 rollator heavy duty #1 ea 01/10/22 fluticasone propionate 50 1 spray intranasal DAILY nasal 03/07/23 mcg/actuation nasal congestion #16 grams spray,suspension (Allergy Relief (fluticasone)) cholecalciferol (vitamin D3) 25 25 mcg PO DAILY 90 days #90 tabs 03/08/23 mcg (1,000 unit) tablet quetiapine 200 mg tablet 200 mg PO BEDTIME 30 days #30 tabs 03/08/23 electric wheelchair #1 ea 07/31/23 shower chair #1 ea 07/31/23 left ankle brace #1 ea 11/29/23 hydrochlorothiazide 25 mg tablet 25 mg PO DAILY 90 days #90 tabs 01/14/24 losartan 50 mg tablet 50 mg PO DAILY 90 days #90 tabs 01/14/24 Compression stockings #1 ea 01/25/24 compression stockings #1 ea 01/25/24 acetaminophen 650 mg 650 mg PO Q12H #60 tabs 04/24/24 tablet,extended release (Tylenol 8 Hour) cyclobenzaprine 10 mg tablet 10 mg PO DAILY Muscle Spasm #30 04/24/24 tabs manual wheel chair with foot rests #1 ea 06/18/24 standard rollator walker #1 ea 06/18/24 walker (Ultra-Light Rollator misc) #1 ea 07/03/24 wheelchair #1 ea 07/03/24 pull ups #120 ea 07/09/24 wipes #500 ea 07/09/24 apixaban 5 mg tablet (Eliquis) 5 mg PO BID #120 tabs 07/12/24 cyclobenzaprine 10 mg tablet 10 mg PO TID PRN muscle spasm #15 07/15/24 tabs Allergies Allergy/AdvReac Type Severity Reaction Status Date / Time hydrocodone [HYDROCODONE] Allergy Intermediate ITCHING Verified 07/15/24 09:52 oxycodone Allergy Intermediate rash Verified 07/15/24 09:52 Review of Systems 2 Constitutional: Constitutional: Denies body ache(s), Denies chills, Denies fever(s) and Denies headache(s) Eyes: Eyes: Denies blurry vision ENT: Denies headache(s) Cardiovascular: Cardiovascular: Denies chest pain, Denies chest pain with activity, Denies Epigastric Pain and Denies dyspnea Respiratory: Respiratory: Denies cough and Denies dyspnea Gastrointestinal: Gastrointestinal: Denies abdominal pain, Denies nausea and Denies vomiting Musculoskeletal: Musculoskeletal: Reports back pain Neurologic: Denies headache(s) [facility] Past Medical History Medical History Cocaine use disorder Hypertension Cocaine use Cellulitis of right middle finger Class 2 obesity with body mass index (BMI) of 37.0 to 37.9 in adult ROSEMARY (obstructive sleep apnea) GERD (gastroesophageal reflux disease) Foot drop, left foot Foreign body (FB) in soft tissue Smoker Chronic back pain Surgical History History of spinal surgery History of gastrectomy History of back surgery Family History Family History Father Stroke CVD (cardiovascular disease) Mother Palpitation Brother Asthma Brother No problems noted. Brother No problems noted. Sister No problems noted. Social History Social History Household Members: None Housing: Homeless Do you presently have visiting nurse or other home services: No Alcohol intake: former Patient Tobacco Use Status: Current everyday Tobacco user Tobacco use type: Cigarette Cigarette Packs Per Day: 0.5 Cigarettes Per Day: 10 e-Cigarette/Vaping Use: Never Used Second Hand Smoke Exposure: Yes Substance Use Type: Crack/Cocaine Advance Directives: No Advance Directives Information Provided: No service: No Current occupational status: disabled Current occupation: rt hand Cognitive needs: Yes (walker) Hearing needs: No Vision needs: Yes Physical Exam ED Vital Signs: Vital Signs - 24 hr 07/15/24 09:49 Temperature 97.8 F Pulse Rate 64 Respiratory Rate 18 Blood Pressure 122/77 Pulse Oximetry 96 Oxygen Delivery Method Room Air BMI result Body Mass Index 35.9 Const General: healthy appearing, comfortable, no acute distress, alert and awake Nutritional Appearance: well nourished Orientation/consciousness: patient oriented x3 HENMT Head: Yes normocephalic and Yes atraumatic Eyes Eyelids: Yes eyelids normal Conjunctivae: conjunctivae normal Sclerae: sclerae normal Corneas: corneas normal Pupils: Equal, round and reactive pupils present EOM: EOMs intact bilaterally Neck Neck: Yes full ROM Resp Effort & Inspection: normal respiratory effort, able to speak in complete sentences, no audible wheezes and not labored Auscultation: clear to auscultation bilaterally Cardio Rate: regular rate Rhythm: regular rhythm Back/Spine/Pelvis Other: Tenderness in the right flank/thoracic paraspinous region. No vertebral tenderness. Skin General skin exam: elasticity normal Neuro General: patient oriented x3 Cranial nerves: Yes Equal, round and reactive pupils present and Yes Bilaterally intact EOM present Cognition (Neuro): normal cognition Extrem Other: Moving all extremities well without any obvious deformities Medical Decision Making Medical Decision Making MDM Narrative: 59 year old male with past medical history as documented above presents for evaluation of right flank pain. He is tender to palpation in the right flank, his pain is worse with movement, most likely musculoskeletal in origin. His CBC shows no significant abnormalities. He has no leukocytosis or significant anemia. Chemistries show a slight elevation of creatinine to 1.41, this is just barely above the patient's baseline overall 1.25-1.3 D-dimer is negative. Sinus rhythm with a rate of 67 beats minute. There is a first-degree AV block with a NE interval of 212. No ectopy, no ST changes . The patient is not hypoxic, tachycardic, or tachypneic he does not complain of any shortness of breath. His D-dimer is within normal limits. The patient has ruled out for PE at this time Differential Diagnosis Differential Diagnoses: The differential diagnosis associated with the presentation includes Right flank pain Muscle strain Obstructive uropathy PE less likely Lab Data MDM Lab Attestation statement: I reviewed the patient's lab results. 07/15/24 10:11 07/15/24 10:11 Labs: Lab Results 07/15/24 Range/Units 10:11 WBC 8.5 (4.8-10.8) X10*3/uL RBC 4.57 L (4.60-5.80) X10*6/uL Hgb 15.0 (14.0-18.0) g/dl Hct 45.1 (42.0-52.0) % MCV 98.7 H (80.0-98.0) fL MCH 32.8 (27.0-33.0) pg MCHC 33.3 (31.0-36.0) g/dl RDW 14.4 (11.0-16.0) % Plt Count 193 (160-400) X10*3/uL MPV 9.7 (9.4-12.4) fL Immature Gran % (Auto) 0.6 H (0.0-0.4) % Neut % (Auto) 74.3 H (45-73) % Lymph % (Auto) 18.7 L (20-40) % [place] % (Auto) 4.5 (2-11) % Eos % (Auto) 1.3 (0-4) % Baso % (Auto) 0.6 (0-2) % Lymph # (Auto) 1.6 (1.2-4.9) X10*3/uL [place] # (Auto) 0.4 (0.1-1.2) X10*3/uL Eos # (Auto) 0.1 (0.0-0.4) X10*3/uL Baso # (Auto) 0.1 (0.0-0.2) X10*3/uL Abs Immat Gran (auto) 0.05 H (0.00-0.03) X10*3/uL Absolute Neuts (auto) 6.3 (2.0-8.3) x10*3/uL Absolute Nucleated RBC 0.000 (0.0-0.012) X10*3/uL Nucleated RBC % (auto) 0.0 (0.0-0.2) /100WBC D-Dimer High Sensitivty 161 NG/ML Sodium 139 (135-145) mmol/L Potassium 5.0 (3.3-5.1) mmol/L Chloride 104 (96-108) mmol/L Carbon Dioxide 28 (22-29) mmol/L Anion Gap 12 (12-20) BUN 15 (9-16) mg/dL Creatinine 1.41 H (0.5-1.4) mg/dL Estim Creat Clear Calc 70.2 Estimated GFR 51 Random Glucose 89 (60-115) mg/dL Calcium 9.5 (8.4-10.2) mg/dL Troponin I High Sens 3.9 (<3.5-35.0) ng/L Independent Interpretation I performed an independent interpretation of an: EKG Discharge Plan Discharge Clinical Impression: Acute right flank pain Patient Disposition: Home, Self-Care Instructions: Muscle Strain (ED) Additional Instructions: Your workup in the ER today was reassuring. This includes your blood work, EKG. It was very unlikely that you have a blood clot in your lungs Your pain is most likely related to a muscle strain Follow-up with your primary doctor, return for new or worsening symptoms Prescriptions: New cyclobenzaprine 10 mg tablet 10 mg PO TID PRN (Reason: muscle spasm) Qty: 15 0RF No Action (DME) showerhead hand held See Rx Instructions .Route .MEDSUPPLY Qty: 1 0RF Rx Instructions: As directed (DME) rollator heavy duty heavy duty See Rx Instructions .Route .MEDSUPPLY Qty: 1 0RF Rx Instructions: As directed fluticasone propionate [Allergy Relief (fluticasone)] 50 mcg/actuation spray,suspension 1 spray intranasal DAILY Qty: 16 0RF Rx Instructions: administer into each nostril cholecalciferol (vitamin D3) 25 mcg (1,000 unit) tablet 25 mcg PO DAILY 90 Days Qty: 90 3RF quetiapine 200 mg tablet 200 mg PO BEDTIME 30 Days Qty: 30 0RF (DME) shower chair See Rx Instructions .Route .MEDSUPPLY Qty: 1 0RF Rx Instructions: As directed (DME) left ankle brace large See Rx Instructions .Route .MEDSUPPLY Qty: 1 0RF Rx Instructions: As directed hydrochlorothiazide 25 mg tablet 25 mg PO DAILY 90 Days Qty: 90 1RF losartan 50 mg tablet 50 mg PO DAILY 90 Days Qty: 90 3RF (DME) Compression stockings See Rx Instructions .Route .MEDSUPPLY Qty: 1 0RF Rx Instructions: As directed (DME) compression stockings 40 mmHg See Rx Instructions .Route .MEDSUPPLY Qty: 1 0RF Rx Instructions: As directed (DME) standard rollator walker See Rx Instructions .Route .MEDSUPPLY Qty: 1 0RF Rx Instructions: As directed (DME) manual wheel chair with foot rests See Rx Instructions .Route .MEDSUPPLY Qty: 1 0RF Rx Instructions: As directed for 13 months (DME) Ultra-Light Rollator Misc See Rx Instructions .ROUTE .MEDSUPPLY Qty: 1 0RF Rx Instructions: As directed (DME) wheelchair See Rx Instructions .Route .MEDSUPPLY Qty: 1 0RF Rx Instructions: Patient needs to rest his left foot (DME) wipes See Rx Instructions .Route .MEDSUPPLY Qty: 500 0RF Rx Instructions: As directed (DME) pull ups 2XL See Rx Instructions .Route .MEDSUPPLY Qty: 120 12RF Rx Instructions: four times per day Eliquis 5 mg tablet 5 mg PO BID Qty: 120 2RF (DME) electric wheelchair See Rx Instructions .Route .MEDSUPPLY Qty: 1 0RF Rx Instructions: As directed acetaminophen [Tylenol 8 Hour] 650 mg tablet extended release 650 mg PO Q12H Qty: 60 0RF cyclobenzaprine 10 mg tablet 10 mg PO DAILY Qty: 30 0RF Print Language: Argentine
[2024-07-15 15:11] VITALS: BP 122/77; PULSE 64; RESP 18; TEMP 36.6; O2SAT 96
== END 2024-07-15 15:12 | disposition home or self-care (01) ==
PROVIDERS: Emergency Provider Emergency Medicine; PCP Internal Medicine
DX: R10.9 Unspecified abdominal pain (principal); I10 Essential (primary) hypertension; Z79.899 Other long term (current) drug therapy
CPT/HCPCS: 36415; 80048; 84484; 85025; 85379; 93005; 99283

== ENCOUNTER 2024-07-18 09:30 | Outpatient (AMB) | payer OTHER, SELFPAY ==
--- NOTE | 2024-07-18 09:57 | A.OFFPC_ITS ---
Vital Signs 07/18/24 10:02 Height 5 ft 10 in Weight 248 lb 2 oz BMI 35.6 BP 118/68 Blood Pressure Location Lt brachial Position Sitting Pulse 85 Pulse Source Pulse Oximeter Pulse Oximetry (%) 94 Oxygen Delivery Method Room Air Intake Visit Re[place]: [facility] Intake Note: Patient is here to follow-up after a visit the emergency department at [facility] [place] 07/15/24. Requesting for lab results and EKG from ER visit on 07/15/24 Parking Lot Laborer Required: No Top Lift And Automatic Window Repairer: Not Required per policy Accompanied by: Self / Same As Patient Allergies hydrocodone [HYDROCODONE] Allergy (Intermediate, Verified 07/18/24 10:52) ITCHING oxycodone Allergy (Intermediate, Verified 07/18/24 10:52) rash Medication List - Last Reconciled 07/18/24 by Onel Lafleur MD acetaminophen ER (Tylenol 8 Hour) 650 mg PO Q12H apixaban (Eliquis) 5 mg PO BID cholecalciferol (vitamin D3) 25 mcg PO DAILY 90 days [Compression stockings As directed] [compression stockings As directed] cyclobenzaprine 10 mg PO TID PRN cyclobenzaprine 10 mg PO DAILY [electric wheelchair As directed] fluticasone propionate 50 mcg/actuation (Allergy Relief (fluticasone)) 1 spray intranasal DAILY hydrochlorothiazide 25 mg PO DAILY 90 days [left ankle brace As directed] losartan 50 mg PO DAILY 90 days [manual wheel chair with foot rests As directed for 13 months ] [pull ups four times per day] quetiapine 200 mg PO BEDTIME 30 days [rollator heavy duty As directed] [shower chair As directed] [showerhead hand held As directed] [standard rollator walker As directed] walker (Ultra-Light Rollator misc) As directed [wheelchair Patient needs to rest his left foot] [wipes As directed] Tobacco use date assessed: 07/18/24 Dental Screening Dental Screen Date: 01/24/24 HPI [facility] HPI Details 59-year-old male presents to the office after a recent discharge from the emergency room. Patient had presented to the emergency room with flank pain and shortness of breath. His symptoms were diagnosed to be due to back pain and muscular in etiology. Blood work and EKG was done. Patient has not started the medications given to him at discharge. Patient would like a copy of the blood work and EKG done from the emergency room. Still has faint amount of pain in the right lower back. No fevers or chills. [facility] Medical History Cocaine use disorder Hypertension Cocaine use Cellulitis of right middle finger Class 2 obesity with body mass index (BMI) of 37.0 to 37.9 in adult ROSEMARY (obstructive sleep apnea) GERD (gastroesophageal reflux disease) Foot drop, left foot Foreign body (FB) in soft tissue Smoker Chronic back pain Surgical History History of spinal surgery History of gastrectomy History of back surgery Family History Father Stroke CVD (cardiovascular disease) Mother Palpitation Brother Asthma Brother No problems noted. Brother No problems noted. Sister No problems noted. Social History Household Members: None Housing: Homeless Do you presently have visiting nurse or other home services: No Alcohol intake: former Patient Tobacco Use Status: Current everyday Tobacco user Tobacco use type: Cigarette Cigarette Packs Per Day: 0.5 Cigarettes Per Day: 10 e-Cigarette/Vaping Use: Never Used Second Hand Smoke Exposure: Yes Substance Use Type: Crack/Cocaine service: No Current occupational status: disabled Current occupation: rt hand Cognitive needs: Yes (walker) Hearing needs: No Vision needs: Yes Questionnaire Thrive Questionnaire Date Thrive assessed: 01/02/23 BRANDT-7 AMB Questionnaire BRANDT-7 Date BRANDT - 7 assessed: 01/24/24 Source: Developed by Drs. Cesar Maguire, Ivonne Milan, Dewayne Woodruff and colleagues, with an educational luz from [employer]. Physical exam (Primary Care) Vital Signs: Last Vital Signs Pulse 85 07/18/24 10:02 BP 118/68 07/18/24 10:02 Pulse Ox 94 07/18/24 10:02 Oxygen Delivery Method Room Air 07/18/24 10:02 BMI result Body Mass Index 35.6 Tobacco/Smoking Status: Tobacco use Status Tobacco use date assessed 07/18/24 07/18/24 09:59 Patient Tobacco Use Status Current everyday Tobacco 07/18/24 09:57 Tobacco use type Cigarette 07/18/24 09:57 e-Cigarette/Vaping Use Never Used 07/18/24 09:57 Thrive Assessment: Date of Thrive Assessment Date Thrive assessed 01/02/23 07/18/24 09:57 Const General: cooperative and healthy appearing Nutritional Appearance: well nourished Orientation/consciousness: patient oriented x3 Limitations: no limitations HENMT Head: Yes normal to inspection Eyes General: appearance normal, both eyes and all related structures Neck Neck: Yes normal visual inspection Chest Chest palpation & inspection: normal palpation of entire chest wall Resp Effort & Inspection: normal respiratory effort Neuro General: patient oriented x3 Office Procedures Flu Questionnaire Does the patient have a severe egg allergy?: No Does the patient have severe life threatening allergies?: No Does the patient have a fever or illness today?: No Has the patient ever had Guillain-[place] Syndrome?: No Has the patient ever had any past reaction to a flu shot?: No Immunizations Fluarix Triv [id number] (PF) 45 mcg (15 mcg x 3)/0.5 mL IM syringe Performing Provider: Onel Lafleur MD [facility] Administered by: DEQUAN Pineda on 07/18/24 10:55 Dose Route Admin Location Dispensed Lot Number Expiration Date NDC Lamina Searcher 0.5 mL IM Left Deltoid 0.5 mL [id number] 04/14/25 14833-733-36 [facility] Given Date VIS Provided VIS Publication Date 07/18/24 Single Vaccine 21 Eligibility Eligibility Date Funding Source Not [facility] Eligible 07/18/24 Private Coding Level of Care Code Est Pt Level 4 (00127) Complex EM visit Add On G2211 Diagnoses Chronic low back pain with left-sided sciatica, unspecified back pain laterality M54.42; G89.29 Back pain location: low back pain Back pain laterality: unspecified Sciatica presence: with sciatica Sciatica laterality: sciatica of left side Assessment & Plan Assessment & Plan (1) Chronic back pain: Code(s): M54.9 - Dorsalgia, unspecified; G89.29 - Other chronic pain Category: Medical Qualifiers: Back pain location: low back pain Back pain laterality: unspecified Sciatica presence: with sciatica Sciatica laterality: sciatica of left side Qualified Code(s): M54.42 - Lumbago with sciatica, left side; G89.29 - Other chronic pain Plan: ER visit reviewed. EKG and blood work results explained to the patient. Encouraged him to take the medications given to him at discharge. Flu vaccine provided to the patient.
[2024-07-18 10:02] VITALS: BP 118/68; PULSE 85; O2SAT 94; BMI 35.6
== END 2024-07-18 10:56 | disposition home or self-care (01) ==
PROVIDERS: PCP Internal Medicine; Visit Provider Internal Medicine
DX: M54.42 Lumbago with sciatica, left side (principal); G89.29 Other chronic pain; Z23 Encounter for immunization

== ENCOUNTER → 2024-07-18 09:30 | Outpatient (BNVA) | payer OTHER, SELFPAY | PROVIDERS: PCP Internal Medicine; Visit Provider Internal Medicine | DX: Z23 Encounter for immunization (principal); M54.42 Lumbago with sciatica, left side; G89.29 Other chronic pain | CPT/HCPCS: 90471; 90656; 99212 ==

== ENCOUNTER 2025-02-25 09:24 | Emergency (ER) | payer OTHER, SELFPAY ==
--- NOTE | ~2025-02-25 | XR_ITS ---
EXAMINATION: XR CHEST CLINICAL INFORMATION: cough, chest congestion COMPARISON: April 28, 2023 TECHNIQUE: 2 views of the chest were obtained. FINDINGS: Limited lateral projection due to superimposition of the upper extremities. Pulmonary reticular pattern. Poor inspiration. No consolidation, pleural fissure pneumothorax. Cardiomediastinal silhouette size is normal. S-shaped curvature of the thoracolumbar spine. Multilevel marginal osteophyte formation and endplate sclerosis throughout the axial skeleton. XR/XR chest 2V IMPRESSION: Chronic interstitial lung disease with questionable superimposed acute small airway inflammatory processes. Scoliosis and spondylosis, thoracolumbar spine. Electronically signed by: Rigoberto Tomas MD 02/25/2025 10:14 AM EDT
[2025-02-25 09:35] VITALS: BP 111/72; PULSE 81; RESP 18; TEMP 36.7; O2SAT 97; BMI 35.9
--- NOTE | 2025-02-25 10:11 | ED.URI ---
HPI - URI/Sore Throat General Chief Complaint: Upper Respiratory Symptoms Stated Complaint: Cough Time Seen by Provider: 02/25/25 09:59 Source: patient Mode of arrival: ambulatory Limitations: no limitations History of Present Illness ED Provider: Cecelia Grijalva PA-C HPI Narrative: 59 y/o male with history of HTN, ROSEMARY, depression, GERD, cocaine use disorder, obesity, chronic back pain, wheelchair dependent who presents to the ER for evaluation of a cough. He reports last 4 or 5 days he has had persistent chest congestion and cough, bringing up yellow and green phlegm in the morning which turns white later in the day. He states his cough is worse at night and is keeping him up at night. He has central chest discomfort when he coughs only. No chest pain at rest. He denies any shortness of breath or difficulty breathing. He denies any history of asthma or COPD. He denies any fever or chills. No known sick contacts. MD elicited complaint: cough Onset (ago): day(s) (5) Consistency: intermittent Severity: moderate Description of mucous: green Able to tolerate fluids by mouth: Yes Exacerbating factors: supine positioning Relieving factors: nothing Associated symptoms: nasal congestion, sore throat, cough and chest pain Treatments prior to arrival: none Related Data Previous Rx's ?Medication ?Instructions ?Recorded showerhead hand held #1 ea 12/08/21 rollator heavy duty #1 ea 01/10/22 fluticasone propionate 50 1 spray intranasal DAILY nasal 03/07/23 mcg/actuation nasal congestion #16 grams spray,suspension (Allergy Relief (fluticasone)) cholecalciferol (vitamin D3) 25 25 mcg PO DAILY 90 days #90 tabs 03/08/23 mcg (1,000 unit) tablet quetiapine 200 mg tablet 200 mg PO BEDTIME 30 days #30 tabs 03/08/23 electric wheelchair #1 ea 07/31/23 shower chair #1 ea 07/31/23 left ankle brace #1 ea 11/29/23 losartan 50 mg tablet 50 mg PO DAILY 90 days #90 tabs 01/14/24 Compression stockings #1 ea 01/25/24 compression stockings #1 ea 01/25/24 cyclobenzaprine 10 mg tablet 10 mg PO DAILY Muscle Spasm #30 04/24/24 tabs standard rollator walker #1 ea 06/18/24 wheelchair #1 ea 07/03/24 cyclobenzaprine 10 mg tablet 10 mg PO TID PRN muscle spasm #15 07/31/24 tabs manual wheel chair with foot rests #1 ea 08/07/24 pull ups #120 ea 08/07/24 wheelchair cushion #1 ea 08/07/24 wipes #500 ea 08/07/24 hydrochlorothiazide 25 mg tablet 25 mg PO DAILY 90 days #90 tabs 09/12/24 walker (Ultra-Light Rollator misc) #1 ea 11/14/24 acetaminophen 650 mg 650 mg PO Q12H #60 tabs 12/30/24 tablet,extended release (Tylenol 8 Hour) apixaban 5 mg tablet (Eliquis) 5 mg PO BID #120 tabs 02/24/25 albuterol sulfate 90 mcg/actuation 1 inh inhalation QID PRN shortness 02/25/25 aerosol inhaler of breath or wheezing #6.7 grams dextromethorphan polistirex 30 10 ml PO Q12H #89 mL 02/25/25 mg/5 mL oral susp ext.release 12hr (12-Hour Cough Relief) prednisone 20 mg tablet 40 mg (2 x 20 mg) PO DAILY #10 tabs 02/25/25 Allergies Allergy/AdvReac Type Severity Reaction Status Date / Time hydrocodone [HYDROCODONE] Allergy Intermediate ITCHING Verified 02/25/25 09:37 oxycodone Allergy Intermediate rash Verified 02/25/25 09:37 Review of Systems Review of Systems: Yes all other systems are reviewed and are negative PMF Past Medical History Medical History (Updated 02/25/25 @ 11:17 by SHANNA Painter) Cocaine use disorder Hypertension Cocaine use Cellulitis of right middle finger Class 2 obesity with body mass index (BMI) of 37.0 to 37.9 in adult ROSEMARY (obstructive sleep apnea) GERD (gastroesophageal reflux disease) Foot drop, left foot Foreign body (FB) in soft tissue Smoker Chronic back pain Surgical History (Updated 01/29/25 @ 07:20 by Nina Aleman) History of colonoscopy (~07/19/11) History of spinal surgery History of gastrectomy History of back surgery Family History Family History Father Stroke CVD (cardiovascular disease) Mother Palpitation Brother Asthma Brother No problems noted. Brother No problems noted. Sister No problems noted. Social History Social History Household Members: None Housing: Homeless Do you presently have visiting nurse or other home services: No Alcohol intake: current Patient Tobacco Use Status: Current everyday Tobacco user Tobacco use type: Cigarette Cigarette Packs Per Day: 0.5 Cigarettes Per Day: 10 e-Cigarette/Vaping Use: Never Used Second Hand Smoke Exposure: Yes Substance Use Type: Crack/Cocaine service: No Current occupational status: disabled Current occupation: rt hand Cognitive needs: Yes (walker) Hearing needs: No Vision needs: Yes Physical Exam Vital Signs: Vital Signs: Last Vital Signs Temp 97.9 F 02/25/25 12:25 Pulse 69 02/25/25 12:25 Resp 16 02/25/25 12:25 BP 114/72 02/25/25 12:25 Pulse Ox 96 02/25/25 12:25 O2 Del Method Room Air 02/25/25 12:25 BMI result Body Mass Index 35.9 Appearance: Alert. Oriented X3. No acute distress. Head: normocephalic, atraumatic. Eyes: Pupils equal, round and reactive to light. ENT: Pharynx normal. No tonsillar swelling or exudate. Neck: Normal inspection. Neck supple. CVS: Normal heart rate and rhythm. Pulses normal. Respiratory: No respiratory distress. Breath sounds diminished at the bilateral bases, no wheezing, rhonchi or rales. Speaking in complete sentences. Abdomen: Soft and nontender. +BS x4 Skin: Skin warm and dry. Normal skin color. Normal skin turgor. No rashes. Extremities: No lower extremity edema. No joint swelling. Neuro/psych: Oriented X 3. grossly normal, nonfocalNormal speech and cognition. Medical Decision Making Medical Decision Making MDM Narrative: 59 yo male presenting for evaluation of cough. denies any pulmonary history. Vital signs are stable and he is in no respiratory distress. No wheezing or rhonchi on examination, he does have some decreased breath sounds at the bases. Chest x-ray shows no focal pneumonia, it is showing some chronic interstitial lung disease with question superimposed acute small airway inflammatory process. viral PCR is negative. Will treat for acute bronchitis with steroids, anti tussive agents and p.r.n. albuterol. Stable for discharge home. Symptomatic and supportive care discussed as well as return precautions. Stable for discharge home Differential Diagnosis Differential Diagnoses: The differential diagnosis associated with the presentation includes strep, covid, flu, rsv, other viral syndrome, bronchitis, pneumonia, pleural effusion, CHF Admission/Observation Consideration of admission/observation: Escalation of care including admission/observation considered Lab Data MDM Lab Attestation statement: I reviewed the patient's lab results. viral panel negative Labs: Lab Results 02/25/25 Range/Units 10:20 Influenza Type A (PCR) NEGATIVE (Negative) Influenza Type B (PCR) NEGATIVE (Negative) RSV RNA Qual (PCR) NEGATIVE (Negative) SARS-CoV-2 RNA (RT-PCR) NEGATIVE (Negative) Independent Interpretation I performed an independent interpretation of an: Plain X-Ray Interpretation: no focal infiltrate or effusion Radiology Impression Discussion of test interpretation with radiology: I have reviewed the radiologist's reading. External Record Review External record reviewed: Outpatient record, Prior outpatient labs and Prior outpatient radiology Prescription Management I considered prescription management with: Pain Medication and Antibiotic Critical Care Time Critical Care Time Critical Care Time: No Discharge Plan Discharge Clinical Impression: Bronchitis Patient Disposition: Home, Self-Care Instructions: Acute Bronchitis (ED) Additional Instructions: your chest x-ray did not show any evidence of pneumonia you tested negative for covid, flu and rsv take the prescribed medications as directed for cough and bronchitis Rest and drink plenty of fluids. Follow-up with your doctor. Take [id number] cold and flu medications as needed for the rest of your symptoms. If you develop new or worsening symptoms call 911 or come back to the ER for further evaluation. Prescriptions: New prednisone 20 mg tablet 40 mg PO DAILY Qty: 10 0RF dextromethorphan polistirex [12-Hour Cough Relief] 30 mg/5 mL suspension,extended rel 12 hr 10 ml PO Q12H Qty: 89 0RF albuterol sulfate 90 mcg/actuation HFA aerosol inhaler 1 inh inhalation QID PRN (Reason: shortness of breath or wheezing) Qty: 6.7 0RF No Action (DME) showerhead hand held See Rx Instructions .Route .MEDSUPPLY Qty: 1 0RF Rx Instructions: As directed (DME) rollator heavy duty heavy duty See Rx Instructions .Route .MEDSUPPLY Qty: 1 0RF Rx Instructions: As directed fluticasone propionate [Allergy Relief (fluticasone)] 50 mcg/actuation spray,suspension 1 spray intranasal DAILY Qty: 16 0RF Rx Instructions: administer into each nostril cholecalciferol (vitamin D3) 25 mcg (1,000 unit) tablet 25 mcg PO DAILY 90 Days Qty: 90 3RF quetiapine 200 mg tablet 200 mg PO BEDTIME 30 Days Qty: 30 0RF (DME) shower chair See Rx Instructions .Route .MEDSUPPLY Qty: 1 0RF Rx Instructions: As directed (DME) left ankle brace large See Rx Instructions .Route .MEDSUPPLY Qty: 1 0RF Rx Instructions: As directed losartan 50 mg tablet 50 mg PO DAILY 90 Days Qty: 90 3RF (DME) Compression stockings See Rx Instructions .Route .MEDSUPPLY Qty: 1 0RF Rx Instructions: As directed (DME) compression stockings 40 mmHg See Rx Instructions .Route .MEDSUPPLY Qty: 1 0RF Rx Instructions: As directed (DME) standard rollator walker See Rx Instructions .Route .MEDSUPPLY Qty: 1 0RF Rx Instructions: As directed (DME) wheelchair See Rx Instructions .Route .MEDSUPPLY Qty: 1 0RF Rx Instructions: Patient needs to rest his left foot cyclobenzaprine 10 mg tablet 10 mg PO TID PRN (Reason: muscle spasm) Qty: 15 0RF (DME) pull ups 2XL See Rx Instructions .Route .MEDSUPPLY Qty: 120 12RF Rx Instructions: four times per day (DME) manual wheel chair with foot rests See Rx Instructions .Route .MEDSUPPLY Qty: 1 0RF Rx Instructions: As directed for 13 months to life (DME) wipes See Rx Instructions .Route .MEDSUPPLY Qty: 500 0RF Rx Instructions: As directed (DME) wheelchair cushion See Rx Instructions .Route .MEDSUPPLY Qty: 1 0RF Rx Instructions: As directed hydrochlorothiazide 25 mg tablet 25 mg PO DAILY 90 Days Qty: 90 1RF (DME) Ultra-Light Rollator Misc See Rx Instructions .ROUTE .MEDSUPPLY Qty: 1 0RF Rx Instructions: As directed acetaminophen [Tylenol 8 Hour] 650 mg tablet extended release 650 mg PO Q12H Qty: 60 0RF Eliquis 5 mg tablet 5 mg PO BID Qty: 120 2RF (DME) electric wheelchair See Rx Instructions .Route .MEDSUPPLY Qty: 1 0RF Rx Instructions: As directed cyclobenzaprine 10 mg tablet 10 mg PO DAILY Qty: 30 0RF Interventions: ED Discharge Assessment Last Done: 02/25/25 12:25 Discharge Date/Time: 02/25/25 12:26 Print Language: Samoan
[2025-02-25 11:06] LABS: Influenza A PCR NEGATIVE (Negative); Influenza B PCR NEGATIVE (Negative); Resp Syncy Virus RNA Qual PCR NEGATIVE (Negative); SARS COV2 PCR INHOUSE NEGATIVE (Negative)
[2025-02-25 12:19] VITALS: BP 114/72; PULSE 69; RESP 16; TEMP 36.6; O2SAT 96
[2025-02-25 12:25] VITALS: BP 114/72; PULSE 69; RESP 16; TEMP 36.6; O2SAT 96
== END 2025-02-25 12:26 | disposition home or self-care (01) ==
PROVIDERS: Physician Assistant; Emergency Provider Emergency Medicine; PCP Internal Medicine
DX: J40 Bronchitis, not specified as acute or chronic (principal); R05.9 Cough, unspecified; Z03.818 Encounter for observation for suspected exposure to other biological agents ruled out; F17.210 Nicotine dependence, cigarettes, uncomplicated
CPT/HCPCS: 0241U; 71046; 99283; 99284

== ENCOUNTER → 2025-02-25 10:00 | Outpatient (BNV) | payer OTHER, SELFPAY | PROVIDERS: Emergency Provider Emergency Medicine; PCP Internal Medicine; Visit Provider Radiology Diagnostic Radiology | DX: J84.9 Interstitial pulmonary disease, unspecified (principal); M47.815 Spondylosis without myelopathy or radiculopathy, thoracolumbar region; M41.35 Thoracogenic scoliosis, thoracolumbar region | CPT/HCPCS: 71046 ==

== ENCOUNTER 2025-04-21 20:01 | Emergency (ER) | payer OTHER, SELFPAY ==
--- NOTE | ~2025-04-21 | XR_ITS ---
CLINICAL HISTORY: chest pain 1 view chest x-ray. Comparison: CR/WY/SR - XR CHEST 2V - 02/25/25 10:09 EDT Findings: No consolidation, pneumothorax, or effusion. There is central pulmonary interstitial prominence. Minimal streaky opacities are identified over the lower left lung. Heart size normal. Radiopaque densities are identified over the lower chest near the midline and also over the expected location of the diaphragmatic hiatus of the midline, suggesting structures external to the patient. Impression: 1. Central pulmonary interstitial prominence. This is nonspecific and may be related to central pulmonary venous congestion, a mild viral infection, and/or bronchitis. Clinical correlation is advised. 2. Minimal streaky subsegmental atelectasis versus scarring present over the lower left lung. No focal pulmonary consolidation. This document has been electronically signed by: Michael Simon MD on 04/21/2025 21:30:55
[2025-04-21 20:06] VITALS: BP 117/81; BP 130/80; PULSE 78; PULSE 90; RESP 16; TEMP 37; O2SAT 93; O2SAT 97; BMI 33.7
--- NOTE | 2025-04-21 20:20 | ECG_ITS ---
Test Reason : CP Blood Pressure : */* mmHG Vent. Rate : 75 BPM Atrial Rate : 75 BPM P-R Int : 214 ms QRS Dur : 110 ms QT Int : 414 ms P-R-T Axes : 43 21 46 degrees QTcB Int : 462 ms Sinus rhythm with 1st degree A-V block Otherwise normal ECG When compared with ECG of 15-Jul-2024 09:58, No significant change was found Referred By: Generic ED Physician Electronically Signed By: Marc Florence
--- NOTE | 2025-04-21 20:22 | PC.NURSE ---
security at bedside for safety check, used body scanning wand and per charge no need for full private branch exchange operator and securing belongings. Pt calm and cooperative. Feelings of anxiety when called EMS. Pt states he has leg, chest and back pain. Orders placed for EKG and blood work. Roller Mill Operator at bedside. v/s WNL.
[2025-04-21 20:53] LABS: MANUAL DIFF FLAG NO
[2025-04-21 21:08] LABS: Alanine Aminotransferase 17 U/L (0-40); Albumin Level 3.8 g/dL (3.5-5.0); Alkaline Phosphatase 74 U/L (39-117); Anion Gap 11 (12-20); Aspartate Amino Transferase 38 U/L (5-37); Blood Urea Nitrogen 19 mg/dL (9-16); Calcium 8.4 mg/dL (8.4-10.2); Carbon Dioxide 28 mmol/L (22-29); Chloride 105 mmol/L (96-108); Creatinine Clr Calc Pharmacy 68.2; Estimated Glomerular Filt Rate 52; Potassium 3.5 mmol/L (3.3-5.1); Sodium 140 mmol/L (135-145); Total Protein 7.5 g/dL (6.5-8.0)
[2025-04-21 21:14] LABS: Troponin-I High Sensitivity 6.0 ng/L (<3.5-35.0)
[2025-04-21 22:33] LABS: Hematocrit 39.5 % (42.0-52.0); Hemoglobin 13.5 g/dl (14.0-18.0); Imm Gran Abs Auto 0.04 X10*3/uL (0.00-0.03); Imm Gran Pct Auto 0.4 % (0.0-0.4); Lymphocytes Absolute Auto 1.6 X10*3/uL (1.2-4.9); Mean Corpuscular HGB Conc 34.2 g/dl (31.0-36.0); Mean Corpuscular Hemoglobin 34.5 pg (27.0-33.0); Mean Corpuscular Volume 101.0 fL (80.0-98.0); NRBC Abs Auto 0.000 X10*3/uL (0.0-0.012); NRBC Pct Auto 0.0 /100WBC (0.0-0.2); Platelet Count 185 X10*3/uL (160-400); Red Blood Count 3.91 X10*6/uL (4.60-5.80); White Blood Count 9.4 X10*3/uL (4.8-10.8)
[2025-04-22 01:28] LABS: Troponin-I High Sensitivity 4.7 ng/L (<3.5-35.0)
[2025-04-22 04:00] VITALS: BP 103/57; PULSE 66; RESP 16; TEMP 36.5; O2SAT 93
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
[2025-04-22 07:08] VITALS: BP 103/57; PULSE 66; RESP 16; TEMP 36.5; O2SAT 93
== END 2025-04-22 07:10 | disposition home or self-care (01) ==
PROVIDERS: Physician Assistant Medical; Emergency Provider Emergency Medicine; PCP Internal Medicine
DX: J40 Bronchitis, not specified as acute or chronic (principal); R07.89 Other chest pain; M54.50 Low back pain, unspecified; F14.10 Cocaine abuse, uncomplicated; F17.210 Nicotine dependence, cigarettes, uncomplicated
CPT/HCPCS: 36415; 71045; 80053; 84484; 85025; 93005; 99283; 99285

== ENCOUNTER → 2025-04-21 20:20 | Outpatient (BNV) | payer OTHER, SELFPAY | PROVIDERS: Emergency Provider Emergency Medicine; PCP Internal Medicine; Visit Provider Internal Medicine Cardiovascular Disease | DX: I44.0 Atrioventricular block, first degree (principal) | CPT/HCPCS: 93010 ==

== ENCOUNTER → 2025-04-21 20:20 | Outpatient (BNV) | payer OTHER, SELFPAY | PROVIDERS: PCP Internal Medicine; Visit Provider Radiology Diagnostic Radiology | DX: R07.9 Chest pain, unspecified (principal) | CPT/HCPCS: 71045 ==